=== PATIENT | female | born 1955 | race Caucasian/White ===

== ENCOUNTER 2024-09-28 08:59 | Outpatient (AMB) | payer MEDICARE, SELFPAY ==
--- NOTE | 2024-09-28 09:06 | A.SPINEOV_ITS ---
Vital Signs 09/28/24 09:14 Height 5 ft 2 in Weight 210 lb BMI 38.4 Intake Visit Reasons: lower back pain Intake Note: Ms. Dunham is here today c/o low back pain and difficulty walking. Interpersonal Communications Professor Required: No Allergies No Known Allergies Allergy (Verified 09/28/24 09:15) Physical Exam Vital Signs: BMI result Body Mass Index 38.4 Assessment & Plan Assessment & Plan (1) Scoliosis of lumbar region due to degenerative disease of spine in adult: Code(s): M41.56 - Other secondary scoliosis, lumbar region Category: Medical (2) Spondylolisthesis, lumbar region: Code(s): M43.16 - Spondylolisthesis, lumbar region Category: Medical Plan Dear colleague Thank you for referring Deb Dunham to the office today with a chief complaint of back pain with walking and standing. HPI: This 68-year-old female has progressive symptoms of back pain with walking and standing. He used to be able to walk 10 mi several years ago which then regressed to 3 miles when she had to stop several time and sit down and now she can hardly walk or stand anymore. Sitting down improves the symptoms. Leaning over a shopping cart is helpful as well. She denies radiating pain down her legs although there is pain in her right buttock that started after chiropractic therapy. This pain increases with walking and standing. The following conservative treatment options were tried without success antiinflammatories, tylenol, physical therapy, chiropractic therapy, cortisone shots PMH: Hypertension, left knee replacement and right rotator cuff surgery Medications: Metoprolol, amitriptyline for shingles Allergies: None Social history: . Nonsmoker. Retired. Physical Exam: Pleasant female. Height 5'2 weight 210 lb. Inspection of the lumbar spine shows a mild lumbar scoliosis with the apex in the high lumbar region. She ambulates with a flexed position. Straight leg raise negative. Motor and sensory exam are intact. Radiological Studies: A dynamic lumbar x-ray of 05/22/2024 shows a lumbar degenerative scoliosis with the apex at L3-L4. More importantly, there was an unstable L4-5 spondylolisthesis that increases with extension. MRI done at [facility] on 06/03/2023 shows again the L4-5 spondylolisthesis and associated moderate L4-5 spinal stenosis and moderate bilateral L4 foraminal stenosis. There is also the lumbar degenerative scoliosis with the apex at L3-L4 with a unilateral disc collapse L3-4 on the right side Impression/Plan: This patient is most likely symptomatic from the L4-5 spondylolisthesis with the associated spinal stenosis. However, the scoliotic component could also affect the symptoms. I offered her an oblique lumbar interbody fusion L4-5 with the possibility to extended to L3-4 depending on the amount of scoliosis seen intraoperatively. Thank you for allowing me to participate in your patients care. total time spent was 50 minutes in counseling ,coordination of plan, personal review of imaging, surgical decision making and subsequent plan Ravi Cuenca MD, PhD Spine Fellowship Trained Neurosurgeon Director, [facility] Coding Level of Care Code New Pt Level 4 (01522) Diagnoses Scoliosis of lumbar region due to degenerative disease of spine in adult M41.56 Spondylolisthesis, lumbar region M43.16
[2024-09-28 09:14] VITALS: BMI 38.4
--- OUTSIDE RECORDS SUMMARY | 2024-09-28 09:16 | XMS_ITS | Clinical Summary ---
Author Organization [facility] Address [address] [place] [address] Care Team Providers Care Pit Inspector Name Role Phone Ubaldo Kevin MD Primary Care Provider [phone] Allergies No known active allergies Medications Medication Sig Dispensed Refills Start Date End Date Status Eagle-3 Fatty Acids (OMEGA 3 PO) Take 3 g by mouth daily. 0 Active Magnesium-Potassium 250-100 MG TABS Take by mouth daily. 0 Active cholecalciferol (VITAMIN D3) 1000 UNITS tablet Take 1 tablet (1,000 Units total) by mouth daily. 0 Active TURMERIC CURCUMIN PO Take 1,000 mg by mouth daily. 0 Active Cyanocobalamin (VITAMIN B 12 PO) Take by mouth. 0 Act jose LANSOPRAZOLE PO Take 40 mg by mouth 2 (two) times a day. 0 Active metoprolol succinate (TOPROL-XL) 24 hr tablet 50 mg Take 1 tablet (50 mg total) by mouth daily. 0 09/10/2023 Active olmesartan (BENICAR) tablet 20 mg TAKE 1 TABLET BY MOUTH EVERY 24 HOURS 0 09/20/2023 Active Active Problems Problem Noted Date Diagnosed Date Palpitations 09/28/2023 Other chest pain 09/28/2023 SOB (shortness of breath) 09/28/2023 Sacroiliac inflammation 02/25/2023 Spinal stenosis of lumbar re gion without neurogenic claudication 02/25/2023 Acute upper GI bleed 12/21/2015 Acute blood loss anemia 12/21/2015 Hypokalemia 12/21/2015 GERD (gastroesophageal reflux disease) 6 Hiatal hernia 12/21/2015 Iron deficiency anemia 12/21/2015 History of DVT (deep vein thrombosis) 12/21/2015 Social History Tobacco Use Types Packs/Day Years Used Date Smoking Tobacco: Former Tobacco Cessation:Counseling Given: Not Answered Alcohol Use Standard Drinks/Week Comments Yes 0 (1 standard drink = 0.6 oz pur e alcohol) rarely Sex and Gender Information Value Date Recorded Sex Assigned at Female 10/26/2023 3:10 PM EDT Gender Identity Not on file Sexual Orientation Not on file Job Start Date Occupation Industry Not on file Not on file Not on file Last Filed Vital Signs Vital Sign Reading Time Taken Comments Blood Pressure 128/73 11/07/2023 8:32 AM EDT Pulse 86 11/07/2023 8:32 AM EDT Temperature 36.6 C (97.9 F) 11/07/2023 8:13 AM EDT Respiratory Rate 15 11/07/2023 8:32 AM EDT Oxygen Saturation 96% 11/07/2023 8:32 AM EDT Inhaled Oxygen Concentration - - Weight 104.3 kg (230 lb) 11/07/2023 8:13 AM EDT Height 160 cm (5' 3 ) 11/07/2023 8:13 AM EDT Body Mass Index 40.74 11/07/2023 8:13 AM EDT Plan of Treatment Health Maintenance Due Date Last Done Comments Hepatitis C Screening 1954 Depression Screening 1966 BMI Counseling 1972 Preventative Health Evaluation 1972 DTap / Tdap / Td (1 - Tdap) 1973 Colon Cancer Screening (Colonoscopy) 12/05/1999 Breast Cancer Screening (Mammogram) 2004 Shingrix-Zoster Vaccine (1 o f 2) 2004 RSV Adult > 60+ Yrs or (1 - Risk 60-74 years 1-dose series) 2014 Fall Risk Assessment 12/05/2019 Osteoporosis Screening (DEXA Scan) 12/05/2019 Pneumococcal Vaccine (1 of 1 - PCV) 12/05/2019 COVID-19 Vaccine (4 - 2023-2 5 season) 2023 04/15/2021, 06/23/2020, 06/02/2020 Influenza Vaccine (#1) 2024 Hepatitis B Vaccines Aged Out No long er eligible based on patient's age to complete this topic RSV Ped < 20 months Aged Out No longe r eligible based on patient's age to complete this topic Advance Directives For more information, please contact: [phone] Latest Code Status on File Code Status Date Activated Date Inactivated Comments DNR 12/21/2015 4:50 PM 12/23/2015 6:02 PM Thi s code status was ascertained in the following way: discussion with patient. Code Status History Code Status Date Activated Date Inactivated Comments DNR 12/21/2015 4:17 PM 12/21/2015 4:50 PM Thi s code status was ascertained in the following way: discussion with patient. Full Code 12/21/2015 3:14 PM 12/21/2015 4:16 PM Thi s code status was ascertained in the following way: discussion with patient. Care Teams Pit Inspector Relationship Specialty Start Date End Date Ubaldo Kevin MD [id number] [place] [address] PCP - General Internal Medicine 12/08/22
--- OUTSIDE RECORDS SUMMARY | 2024-09-28 09:16 | XMS_ITS | Clinical Summary ---
Author Organization [facility] Address [address] [place] [address] Care Team Providers Care Field Mechanical Meter Tester Name Role Phone Ubaldo Kevin MD Unavailable [phone] Pcp, No MD Primary Care Provider Unavailabl e Allergies No known active allergies Medications omeprazole (PriLOSEC) 40 mg capsule TAKE 1 CAPSULE BY MOUTH TWICE DAILY BEFORE MEALS 03/12/2020 Active Active Problems No known active problems Social History Tobacco Use Types Packs/Day Years Used Date Smoking Tobacco: Never Smokeless Tobacco: Never Tobacco Cessation:Counseling Given: Not Answered Alcohol Use Standard Drinks/Week Comments Not Currently 0 (1 standard drink = 0.6 oz pur e alcohol) Comments Unknown Sex and Gender Information Value Date Recorded Sex Assigned at Not on file Legal Sex Female 6:01 PM EST Gender Identity Not on file Sexual Orientation Not on file Last Filed Vital Signs Vital Sign Reading Time Taken Comments Blood Pressure 134/73 08/31/2023 8:01 PM EDT Pulse 133 08/31/2023 8:01 PM EDT Temperature 37.3 C (99.1 F) 08/31/2023 8:01 PM EDT Respiratory Rate 16 08/31/2023 8:01 PM EDT Oxygen Saturation 91% 08/31/2023 8:01 PM EDT Inhaled Oxygen Concentration - - Weight - - Height - - Body Mass Index - - Plan of Treatment Health Maintenance Due Date Last Done Comments Bone Density Screening 1954 Breast Cancer Screening 1954 CT Colonography 1954 Colonoscopy 1954 Colorectal Cancer Screening 1954 FIT-DNA (Cologuard) 1954 FIT 1954 FOBT 1954 Flex Sigmoidoscopy - 5y 1954 HIV Screening 1954 Medicare Annual Wellness (AWV) 1954 DTaP,Tdap,and Td Vaccines (1 - Tdap) 1972 Hepatitis C Screening 1972 Pneumococcal Vaccine, 50+ Years (1 of 1 - PCV) 2004 Zoster Vaccines (2 of 2) 06/27/2023 05/02/2023 COVID-19 Vaccine (4 - 2023-2 5 season) 2023 04/15/2021, 06/23/2020, 06/02/2020 Influenza Vaccine (#1) 2024 HPV Vaccines Aged Out No longer eligi ble based on patient's age to complete this topic Hepatitis A Vaccines Aged Out No long er eligible based on patient's age to complete this topic Meningococcal Vaccine Aged Out No vero edenilson eligible based on patient's age to complete this topic Insurance MEDICARE Care Teams Field Mechanical Meter Tester Relationship Specialty Start Date End Date Ubaldo Kevin MD [address] [place] [address] PCP - Insurance Payer PCP 08/31/23 Taylor Marquez MD [address] [place] [address] PCP - General Internal Medicine 08/31/23
--- OUTSIDE RECORDS SUMMARY | 2024-09-28 09:16 | XMS_ITS | Encounter Summary ---
Author Organization [facility] Address [address] [place] [address] Care Team Providers Care Negative Notcher Name Role Phone Anamika Milton ND Unavailable [phone] Ubaldo Kevin MD Primary Care Provider [phone] Encounter Details Date Type Department Care Team (Late st Contact Info) Description 07/11/2023 Scanned Document [facility] [address] [address] Poncho Bronson MD [address] [place] [address] [address] [place] [address] Social History Tobacco Use Types Packs/Day Years Used Date Smoking Tobacco: Former Smokeless Tobacco: Never Alcohol Use Standard Drinks/Week Comments No 0 (1 standard drink = 0.6 oz pur e alcohol) Comments No Sex and Gender Information Value Date Recorded Sex Assigned at Female 02/11/2024 8:26 AM EST Legal Sex Female 3:14 PM EDT Gender Identity Female 04/06/2024 9:38 AM EST Sexual Orientation Heterosexual (straight) 04/06 9:38 AM EST documented as of this encounter Plan of Treatment Not on file documented as of this encounter Visit Diagnoses Not on filedocumented in this encounter Care Teams Negative Notcher Relationship Specialty Start Date End Date Anamika Milton ND PCP - Allergy Naturopathic Medicine 05/26/18 Ubaldo Kevin MD [address] [place] [address] PCP - General Internal Medicine 05/26/18 documented as of this encounter
--- OUTSIDE RECORDS SUMMARY | 2024-09-28 09:16 | XMS_ITS ---
Author Name [facility] Organization Unknown Results Test Name/Text Value Interpretation Date Range Source Magnesium SerPl-mCnc 2.3 mg/dL 02 5 1.7 - 2.8 [facility] Albumin SerPl-mCnc 4.5 g/dL 5 3.5 - 5 [facility] BUN/Creat SerPl 18.0 5 12 - 20 [facility] Chloride SerPl-sCnc 100.0 mmol/L 09/24/19 2 5 98 - 107 [facility] Glucose SerPl-mCnc 114.0 mg/dL Above high normal 08/29 5 70 - 99 [facility] Potassium SerPl-sCnc 4.1 mmol/L 02 5 3.5 - 5.1 [facility] Sodium SerPl-sCnc 135.0 mmol/L 5 135 - 145 [facility] BUN SerPl-mCnc 20.0 mg/dL Above high normal 09/24/19 2 5 7 - 17 [facility] AST SerPl-cCnc 25.0 unit/L 5 5 - 40 [facility] Anion Gap SerPl Calc-sCnc 10.0 5 5 - 14 [facility] Bilirub SerPl-mCnc 0.4 mg/dL 5 0.3 - 1 [facility] Calcium SerPl-mCnc 9.0 mg/dL 5 8.4 - 10.2 [facility] Creat SerPl-mCnc 1.11 mg/dL Above high normal 5 0.5 - 1 [facility] ALP SerPl-cCnc 90.0 unit/L 5 34 - 104 [facility] ALT SerPl-cCnc 16.0 unit/L 5 7 - 52 [facility] Prot SerPl-mCnc 7.7 g/dL 5 6.4 - 8.5 [facility] CO2 SerPl-sCnc 25.0 mmol/L 5 24 - 32 [facility] eGFRcr SerPlBld CKD-EPI 2020 54.0 mL/min/1.73m2 Below low normal 5 - [facility] Monocytes # Bld Auto 0.52 K/mcL 02 5 0 - 0.8 [facility] Monocytes NFr Bld Auto 7.0 % 5 2 - 12 [facility] Basophils NFr Bld Auto 0.5 % 5 0 - 2 [facility] Hgb Bld-mCnc 12.3 g/dL Below low normal 5 12.5 - 16 [facility] PMV Bld Auto 9.1 FL 5 7.4 - 11.4 [facility] RBC # Bld Auto 4.44 M/mcL 5 4.2 - 5.4 [facility] MCHC RBC Auto-EntMCnc 33.5 g/dL 5 32 - 36 [facility] Neutrophils # Bld Auto 4.06 K/mcL 5 1.8 - 7.8 [facility] Lymphocytes NFr Bld Auto 32.6 % 5 20 - 48 [facility] WBC # Bld Auto 7.5 K/mcL 5 4 - 10.5 [facility] Hct VFr Bld Auto 36.7 % Below low normal 02 5 37 - 47 [facility] RBC Auto 82.7 FL 5 78 - 100 [facility] RDW RBC Auto 16.0 % 5 12.1 - 16.2 [facility] Platelet # Bld Auto 342.0 K/mcL 09/24/19 2 5 150 - 450 [facility] MCH RBC Qn Auto 27.7 pcg 5 25 - 33 [facility] Eosinophil # Bld Auto 0.38 K/mcL 5 0 - 0.5 [facility] Lymphocytes # Bld Auto 2.43 K/mcL 5 1 - 3.2 [facility] Eosinophil NFr Bld Auto 5.1 % 5 0 - 6 [facility] Basophils # Bld Auto 0.04 K/mcL 02 5 0 - 0.2 [facility] Neutrophils NFr Bld Auto 54.5 % 5 44 - 74 [facility] Glucose Bld-mCnc 98.0 mg/dL 5 70 - 199 [facility] Troponin I SerPl HS-mCnc 3.0 ng/L 5 0 - 14 [facility] Lipase SerPl-cCnc 11.0 unit/L 5 11 - 82 [facility] Creat SerPl-mCnc 0.98 mg/dL 5 0.5 - 1 [facility] Anion Gap SerPl Calc-sCnc 10.0 5 5 - 14 [facility] Bilirub SerPl-mCnc 0.5 mg/dL 5 0.3 - 1 [facility] BUN/Creat SerPl 21.4 Above high normal 02 5 12 - 20 [facility] Prot SerPl-mCnc 7.5 g/dL 5 6.4 - 8.5 [facility] ALP SerPl-cCnc 86.0 unit/L 5 34 - 104 [facility] Glucose SerPl-mCnc 93.0 mg/dL 5 70 - 199 [facility] Sodium SerPl-sCnc 134.0 mmol/L Below low normal 5 135 - 145 [facility] Calcium SerPl-mCnc 8.8 mg/dL 5 8.4 - 10.2 [facility] ALT SerPl-cCnc 17.0 unit/L 5 7 - 52 [facility] eGFRcr SerPlBld CKD-EPI 2020 63.0 mL/min/1.73m2 5 - [facility] AST SerPl-cCnc 22.0 unit/L 5 5 - 40 [facility] Potassium SerPl-sCnc 3.7 mmol/L 02 5 3.5 - 5.1 [facility] Albumin SerPl-mCnc 4.1 g/dL 5 3.5 - 5 [facility] Chloride SerPl-sCnc 99.0 mmol/L 08/07/19 2 5 98 - 107 [facility] BUN SerPl-mCnc 21.0 mg/dL Above high normal 08/07/19 2 5 7 - 17 [facility] CO2 SerPl-sCnc 25.0 mmol/L 5 24 - 32 [facility] Eosinophil # Bld Auto 0.28 K/mcL 5 0 - 0.5 [facility] Basophils # Bld Auto 0.04 K/mcL 02 5 0 - 0.2 [facility] RBC # Bld Auto 4.23 M/mcL 5 4.2 - 5.4 [facility] Basophils NFr Bld Auto 0.7 % 5 0 - 2 [facility] Lymphocytes NFr Bld Auto 37.0 % 5 20 - 48 [facility] PMV Bld Auto 8.6 FL 5 7.4 - 11.4 [facility] MCH RBC Qn Auto 26.7 pcg 5 25 - 33 [facility] MCHC RBC Auto-EntMCnc 33.2 g/dL 5 32 - 36 [facility] Hgb Bld-mCnc 11.3 g/dL Below low normal 5 12.5 - 16 [facility] RBC Auto 80.4 FL 5 78 - 100 [facility] RDW RBC Auto 13.7 % 5 12.1 - 16.2 [facility] Hct VFr Bld Auto 34.0 % Below low normal 02 5 37 - 47 [facility] Lymphocytes # Bld Auto 2.09 K/mcL 5 1 - 3.2 [facility] Neutrophils # Bld Auto 2.74 K/mcL 5 1.8 - 7.8 [facility] Monocytes # Bld Auto 0.49 K/mcL 02 5 0 - 0.8 [facility] Platelet # Bld Auto 304.0 K/mcL 08/07/19 2 5 150 - 450 [facility] Monocytes NFr Bld Auto 8.7 % 5 2 - 12 [facility] Neutrophils NFr Bld Auto 48.4 % 5 44 - 74 [facility] WBC # Bld Auto 5.7 K/mcL 5 4 - 10.5 [facility] Eosinophil NFr Bld Auto 5.0 % 5 0 - 6 [facility] Sp Gr Ur 1.01 5 1.005 - 1.03 [facility] Clarity Ur Clear 5 - [facility] Hgb Ur Ql Negative 5 - [facility] Prot Ur Strip-mCnc Negative 5 - [facility] Ketones Ur-mCnc Negative 5 - [facility] Leukocyte esterase Ur Ql Strip Trace Abnormal 5 - [facility] Nitrite Ur Ql Negative 5 - [facility] Glucose Ur Ql Negative 5 - [facility] Color Ur Yellow 5 - [facility] pH Ur 6.0 pH 5 5 - 8 [facility] eGFRcr SerPlBld CKD-EPI 2020 79.0 mL/min/1.73m2 5 - [facility] Glucose SerPl-mCnc 107.0 mg/dL 5 70 - 199 [facility] Calcium SerPl-mCnc 9.5 mg/dL 5 8.4 - 10.2 [facility] Anion Gap SerPl Calc-sCnc 11.0 5 5 - 14 [facility] Potassium SerPl-sCnc 3.8 mmol/L 02 5 3.5 - 5.1 [facility] Albumin SerPl-mCnc 4.3 g/dL 5 3.5 - 5 [facility] Sodium SerPl-sCnc 137.0 mmol/L 5 135 - 145 [facility] Creat SerPl-mCnc 0.81 mg/dL 5 0.5 - 1 [facility] Bilirub SerPl-mCnc 0.6 mg/dL 5 0.3 - 1 [facility] Prot SerPl-mCnc 8.1 g/dL 5 6.4 - 8.5 [facility] AST SerPl-cCnc 24.0 unit/L 5 5 - 40 [facility] BUN/Creat SerPl 22.2 Above high normal 02 5 12 - 20 [facility] ALT SerPl-cCnc 19.0 unit/L 5 7 - 52 [facility] CO2 SerPl-sCnc 24.0 mmol/L 5 24 - 32 [facility] Chloride SerPl-sCnc 102.0 mmol/L 08/03/19 2 5 98 - 107 [facility] BUN SerPl-mCnc 18.0 mg/dL Above high normal 08/03/19 2 5 7 - 17 [facility] ALP SerPl-cCnc 96.0 unit/L 5 34 - 104 [facility] RBC Auto 79.5 FL 5 78 - 100 [facility] Lymphocytes NFr Bld Auto 39.9 % 5 20 - 48 [facility] Neutrophils # Bld Auto 3.09 K/mcL 5 1.8 - 7.8 [facility] Basophils NFr Bld Auto 0.6 % 5 0 - 2 [facility] Lymphocytes # Bld Auto 2.54 K/mcL 5 1 - 3.2 [facility] PMV Bld Auto 8.6 FL 5 7.4 - 11.4 [facility] Platelet # Bld Auto 324.0 K/mcL 08/03/19 2 5 150 - 450 [facility] RDW RBC Auto 13.6 % 5 12.1 - 16.2 [facility] Neutrophils NFr Bld Auto 48.6 % 5 44 - 74 [facility] Monocytes # Bld Auto 0.47 K/mcL 02 5 0 - 0.8 [facility] Hct VFr Bld Auto 33.7 % Below low normal 02 5 37 - 47 [facility] RBC # Bld Auto 4.24 M/mcL 5 4.2 - 5.4 [facility] Eosinophil # Bld Auto 0.21 K/mcL 5 0 - 0.5 [facility] Monocytes NFr Bld Auto 7.4 % 5 2 - 12 [facility] MCH RBC Qn Auto 26.9 pcg 5 25 - 33 [facility] WBC # Bld Auto 6.4 K/mcL 5 4 - 10.5 [facility] Eosinophil NFr Bld Auto 3.3 % 5 0 - 6 [facility] Hgb Bld-mCnc 11.4 g/dL Below low normal 5 12.5 - 16 [facility] Basophils # Bld Auto 0.04 K/mcL 02 5 0 - 0.2 [facility] MCHC RBC Auto-EntMCnc 33.8 g/dL 5 32 - 36 [facility] Prot Ur Strip-mCnc Negative 5 - [facility] Sp Gr Ur 1.015 5 1.005 - 1.03 [facility] Color Ur Yellow 5 - [facility] Glucose Ur Ql Negative 5 - [facility] Leukocyte esterase Ur Ql Strip Negative 5 - [facility] pH Ur 7.0 pH 5 5 - 8 [facility] Hgb Ur Ql Negative 5 - [facility] Nitrite Ur Ql Negative 5 - [facility] Clarity Ur Clear 5 - [facility] Ketones Ur-mCnc Negative 5 - [facility] FLEXITEST 1 FLEXITEST 1 Normal 4 - [facility] GFRE 63.0 Normal 4 60 - [facility] GLUCOSE 113.0 mg/dL Above high normal 4 74 - 100 [facility] POTASSIUM SERUM 4.3 mmol/L Normal 4 3.5 - 5.1 [facility] CHLORIDE 108.0 mmol/L Above high normal 4 98 - 107 [facility] CALCIUM 9.6 mg/dL Normal 4 8.5 - 10.1 [facility] CREATININE 0.94 mg/dL Normal 4 0.55 - 1.3 [facility] SODIUM 140.0 mmol/L Normal 4 136 - 145 [facility] CO2 25.0 mmol/L Normal 4 21 - 32 [facility] BUN 22.0 mg/dL Above high normal 4 7 - 18 [facility] PATIENT FASTING? NO Normal 4 [facility] C-REACTIVE PROTEIN 0.5 mg/dL Normal 4 - 1 [facility] MCH 28.0 PG Normal 4 27 - 34 [facility] GRANULOCYTES 45.0 % Normal 4 23 - 78 [facility] IMMATURE GRANULOCYTES 0.0 % Normal 4 0 - 0.45 [facility] WBC 5.2 K/uL Normal 4 3.7 - 10.3 [facility] RDW 13.4 % Above high normal 4 11.1 - 13.3 [facility] HCT 34.1 % Below low normal 4 36 - 46 [facility] ABSOLUTE LYMPHS 2.1 K/uL Normal 4 1.5 - 4.9 [facility] EOSINOPHILS 6.0 % Normal 4 0 - 6 [facility] PLATELET COUNT 307.0 K/uL Normal 4 150 - 480 [facility] ABSOLUTE IMMATURE GRANULOCYTES 0.0 K/uL Normal 4 0 - 0.3 [facility] MPV 10.0 fL Normal 4 8 - 12 [facility] ABSOLUTE NUCLEATED RBC 0.0 K/uL Normal 4 0 - 0.012 [facility] NUCLEATED RBC 0.0 % Normal 4 0 - 0.2 [facility] MCV 86.0 fL Normal 4 83 - 102 [facility] LYMPHS 39.0 % Normal 4 16 - 50 [facility] ABSOLUTE EOS 0.3 K/uL Normal 4 0 - 0.7 [facility] BASOPHILS 1.0 % Normal 4 0 - 2 [facility] HGB 11.2 g/dL Below low normal 4 12.1 - 15.7 [facility] MONOCYTES 9.0 % Normal 4 0 - 12 [facility] MCHC 32.8 g/dL Normal 4 31 - 36 [facility] RBC 3.97 M/uL Below low normal 4 4 - 5.4 [facility] ABSOLUTE GRANULOCYTES 2.3 K/uL Normal 4 2.2 - 7.3 [facility] ABSOLUTE MONOS 0.5 K/uL Normal 4 0.2 - 1.5 [facility] ABSOLUTE BASO 0.0 K/uL Normal 4 0 - 0.2 [facility] FIBRINOGEN 344.0 mg/dL Normal 4 172 - 483 [facility] D-DIMER HIGH SENSITIVITY 244.0 ng/MLDDU Above high normal 4 0 - 243 [facility] 18 KD BAND,IGG Nonreactive Normal 4 - [facility] 28 KD BAND,IGG Nonreactive Normal 4 - [facility] 39 KD BAND,IGM Nonreactive Normal 4 - [facility] 39 KD BAND,IGG Nonreactive Normal 4 - [facility] LYME DISEASE AB(IGG),BLOT Negative Normal 4 - [facility] 58 KD BAND,IGG Reactive Abnormal 4 - [facility] 41 KD BAND,IGG Reactive Abnormal 4 - [facility] 23 KD BAND,IGM Reactive Abnormal 4 - [facility] 93 KD BAND,IGG Nonreactive Normal 4 - [facility] 66 KD BAND,IGG Nonreactive Normal 4 - [facility] 30 KD BAND,IGG Nonreactive Normal 4 - [facility] 41 KD BAND,IGM Nonreactive Normal 4 - [facility] LYME DISEASE AB(IGM),BLOT Negative Normal 4 - [facility] 23 KD BAND,IGG Nonreactive Normal 4 - [facility] 45 KD BAND,IGG Nonreactive Normal 4 - [facility] HS-CRP 5.3 mg/L Normal 4 - [facility] LYME AB SCREEN (IGG/IGM) Normal 4 - [facility] C-REACTIVE PROTEIN 0.6 mg/dL Normal 4 - 1 [facility] GFRE 69.0 Normal 4 60 - [facility] SODIUM 140.0 mmol/L Normal 4 136 - 145 [facility] GLUCOSE 96.0 mg/dL Normal 4 74 - 100 [facility] CREATININE 0.87 mg/dL Normal 4 0.55 - 1.3 [facility] CALCIUM 8.9 mg/dL Normal 4 8.5 - 10.1 [facility] CHLORIDE 107.0 mmol/L Normal 4 98 - 107 [facility] CO2 24.0 mmol/L Normal 4 21 - 32 [facility] BUN 32.0 mg/dL Above high normal 4 7 - 18 [facility] POTASSIUM SERUM 4.4 mmol/L Normal 4 3.5 - 5.1 [facility] PATIENT FASTING? NO Normal 4 [facility] ABSOLUTE LYMPHS 2.2 K/uL Normal 4 1.5 - 4.9 [facility] ABSOLUTE MONOS 0.6 K/uL Normal 4 0.2 - 1.5 [facility] GRANULOCYTES 54.0 % Normal 4 23 - 78 [facility] PLATELET COUNT 330.0 K/uL Normal 4 150 - 480 [facility] WBC 7.0 K/uL Normal 4 3.7 - 10.3 [facility] HCT 35.1 % Below low normal 4 36 - 46 [facility] ABSOLUTE GRANULOCYTES 3.8 K/uL Normal 4 2.2 - 7.3 [facility] RBC 4.0 M/uL Normal 4 4 - 5.4 [facility] ABSOLUTE BASO 0.0 K/uL Normal 4 0 - 0.2 [facility] ABSOLUTE IMMATURE GRANULOCYTES 0.0 K/uL Normal 4 0 - 0.3 [facility] BASOPHILS 1.0 % Normal 4 0 - 2 [facility] MCV 88.0 fL Normal 4 83 - 102 [facility] MONOCYTES 8.0 % Normal 4 0 - 12 [facility] EOSINOPHILS 5.0 % Normal 4 0 - 6 [facility] IMMATURE GRANULOCYTES 0.0 % Normal 4 0 - 0.45 [facility] MCHC 32.5 g/dL Normal 4 31 - 36 [facility] RDW 13.7 % Above high normal 4 11.1 - 13.3 [facility] NUCLEATED RBC 0.0 % Normal 4 0 - 0.2 [facility] ABSOLUTE NUCLEATED RBC 0.0 K/uL Normal 4 0 - 0.012 [facility] MCH 29.0 PG Normal 4 27 - 34 [facility] MPV 9.0 fL Normal 4 8 - 12 [facility] HGB 11.4 g/dL Below low normal 4 12.1 - 15.7 [facility] ABSOLUTE EOS 0.3 K/uL Normal 4 0 - 0.7 [facility] LYMPHS 32.0 % Normal 4 16 - 50 [facility] Glomerular filtration rate/1.73 sq M. predicted 70.0 Normal 4 [facility] CREAT BLD MCNC 0.9 mg/dL Normal 4 0.5 - 1 [facility] CREATININE 0.9 mg/dL Normal 4 0.55 - 1.3 [facility] BUN 23.0 mg/dL Above high normal 4 7 - 18 [facility] GFRE 66.0 Normal 4 60 - [facility] IMMUNOGLOBULIN G SUBCLASS 2 452.0 mg/dL Normal 4 241 - 700 [facility] IMMUNOGLOBULIN G SUBCLASS 3 192.0 mg/dL Critically abnormal 4 22 - 178 [facility] IMMUNOGLOBULIN G, SERUM 1261.0 mg/dL Normal 4 600 - 1540 [facility] IMMUNOGLOBULIN G SUBCLASS 4 95.9 mg/dL Critically abnormal 4 4 - 86 [facility] IMMUNOGLOBULIN G SUBCLASS 1 561.0 mg/dL Normal 4 382 - 929 [facility] MCH 31.0 PG Normal 4 27 - 34 [facility] ABSOLUTE GRANULOCYTES 3.2 K/uL Normal 4 2.2 - 7.3 [facility] RDW 14.2 % Above high normal 4 11.1 - 13.3 [facility] MCV 92.0 fL Normal 4 83 - 102 [facility] LYMPHS 30.0 % Normal 4 16 - 50 [facility] HCT 36.3 % Normal 4 36 - 46 [facility] ABSOLUTE IMMATURE GRANULOCYTES 0.0 K/uL Normal 4 0 - 0.3 [facility] PLATELET COUNT 340.0 K/uL Normal 4 150 - 480 [facility] EOSINOPHILS 4.0 % Normal 4 0 - 6 [facility] ABSOLUTE EOS 0.2 K/uL Normal 4 0 - 0.7 [facility] MCHC 33.3 g/dL Normal 4 31 - 36 [facility] BASOPHILS 1.0 % Normal 4 0 - 2 [facility] ABSOLUTE LYMPHS 1.7 K/uL Normal 4 1.5 - 4.9 [facility] NUCLEATED RBC 0.0 % Normal 4 0 - 0.2 [facility] MPV 10.0 fL Normal 4 8 - 12 [facility] RBC 3.95 M/uL Below low normal 4 4 - 5.4 [facility] GRANULOCYTES 56.0 % Normal 4 23 - 78 [facility] ABSOLUTE MONOS 0.5 K/uL Normal 4 0.2 - 1.5 [facility] HGB 12.1 g/dL Normal 4 12.1 - 15.7 [facility] ABSOLUTE NUCLEATED RBC 0.0 K/uL Normal 4 0 - 0.012 [facility] MONOCYTES 8.0 % Normal 4 0 - 12 [facility] ABSOLUTE BASO 0.1 K/uL Normal 4 0 - 0.2 [facility] IMMATURE GRANULOCYTES 0.0 % Normal 4 0 - 0.45 [facility] WBC 5.6 K/uL Normal 4 3.7 - 10.3 [facility] MAGNESIUM 1.9 mg/dL Normal 4 1.8 - 2.4 [facility] GFRE 73.0 Normal 4 60 - [facility] PHOSPHOROUS 3.4 mg/dL Normal 4 2.5 - 4.9 [facility] BUN 9.0 mg/dL Normal 4 7 - 18 [facility] A/G RATIO 0.6 g/dL Normal 4 [facility] CHLORIDE 102.0 mmol/L Normal 4 98 - 107 [facility] BUN/CREAT.RATIO 10.8 Normal 4 [facility] CO2 32.0 mmol/L Normal 4 21 - 32 [facility] PROTEIN, TOTAL 6.7 g/dL Normal 4 6.4 - 8.2 [facility] GLOBULIN 4.3 g/dL Above high normal 4 2.4 - 4.2 [facility] GLUCOSE 101.0 mg/dL Above high normal 4 74 - 100 [facility] CALCIUM 9.1 mg/dL Normal 4 8.5 - 10.1 [facility] POTASSIUM SERUM 4.2 mmol/L Normal 4 3.5 - 5.1 [facility] CREATININE 0.83 mg/dL Normal 4 0.55 - 1.3 [facility] ALBUMIN 2.4 g/dL Below low normal 4 3.4 - 5 [facility] ALKALINE PHOSPHATASE 121.0 U/L Normal 02 4 50 - 136 [facility] AST (SGOT) 37.0 U/L Normal 4 15 - 37 [facility] ALT (SGPT) 40.0 U/L Normal 4 12 - 78 [facility] BILIRUBIN,TOTAL 0.6 mg/dL Normal 4 0.2 - 1 [facility] SODIUM 140.0 mmol/L Normal 4 136 - 145 [facility] PATIENT FASTING? YES Normal 4 [facility] MCH 30.0 PG Normal 4 27 - 34 [facility] RBC 3.71 M/uL Below low normal 4 4 - 5.4 [facility] MPV 9.0 fL Normal 4 8 - 12 [facility] ABSOLUTE MONOS 0.5 K/uL Normal 4 0.2 - 1.5 [facility] ABSOLUTE LYMPHS 1.7 K/uL Normal 4 1.5 - 4.9 [facility] HCT 33.0 % Below low normal 4 36 - 46 [facility] LYMPHS 24.0 % Normal 4 16 - 50 [facility] BASOPHILS 1.0 % Normal 4 0 - 2 [facility] GRANULOCYTES 61.0 % Normal 4 23 - 78 [facility] ABSOLUTE GRANULOCYTES 4.2 K/uL Normal 4 2.2 - 7.3 [facility] PLATELET COUNT 415.0 K/uL Normal 4 150 - 480 [facility] ABSOLUTE NUCLEATED RBC 0.0 K/uL Normal 4 0 - 0.012 [facility] RDW 12.6 % Normal 4 11.1 - 13.3 [facility] MONOCYTES 8.0 % Normal 4 0 - 12 [facility] EOSINOPHILS 5.0 % Normal 4 0 - 6 [facility] WBC 6.8 K/uL Normal 4 3.7 - 10.3 [facility] ABSOLUTE IMMATURE GRANULOCYTES 0.1 K/uL Normal 4 0 - 0.3 [facility] NUCLEATED RBC 0.0 % Normal 4 0 - 0.2 [facility] MCHC 33.3 g/dL Normal 4 31 - 36 [facility] IMMATURE GRANULOCYTES 1.0 % Above high normal 4 0 - 0.45 [facility] MCV 89.0 fL Normal 4 83 - 102 [facility] ABSOLUTE EOS 0.3 K/uL Normal 4 0 - 0.7 [facility] ABSOLUTE BASO 0.1 K/uL Normal 4 0 - 0.2 [facility] HGB 11.0 g/dL Below low normal 4 12.1 - 15.7 [facility] GFRE 93.0 Normal 4 60 - [facility] MAGNESIUM 1.9 mg/dL Normal 4 1.8 - 2.4 [facility] PHOSPHOROUS 4.6 mg/dL Normal 4 2.5 - 4.9 [facility] CALCIUM 9.2 mg/dL Normal 4 8.5 - 10.1 [facility] AST (SGOT) 45.0 U/L Above high normal 4 15 - 37 [facility] ALT (SGPT) 45.0 U/L Normal 4 12 - 78 [facility] A/G RATIO 0.5 g/dL Normal 4 [facility] BUN 8.0 mg/dL Normal 4 7 - 18 [facility] PROTEIN, TOTAL 6.9 g/dL Normal 4 6.4 - 8.2 [facility] ALBUMIN 2.3 g/dL Below low normal 4 3.4 - 5 [facility] GLUCOSE 89.0 mg/dL Normal 4 74 - 100 [facility] ALKALINE PHOSPHATASE 130.0 U/L Normal 02 4 50 - 136 [facility] SODIUM 139.0 mmol/L Normal 4 136 - 145 [facility] CO2 31.0 mmol/L Normal 4 21 - 32 [facility] POTASSIUM SERUM 3.8 mmol/L Normal 4 3.5 - 5.1 [facility] CREATININE 0.67 mg/dL Normal 4 0.55 - 1.3 [facility] BUN/CREAT.RATIO 11.9 Normal 4 [facility] BILIRUBIN,TOTAL 0.5 mg/dL Normal 4 0.2 - 1 [facility] CHLORIDE 99.0 mmol/L Normal 4 98 - 107 [facility] GLOBULIN 4.6 g/dL Above high normal 4 2.4 - 4.2 [facility] PATIENT FASTING? YES Normal 4 [facility] MPV 9.0 fL Normal 4 8 - 12 [facility] MCHC 33.2 g/dL Normal 4 31 - 36 [facility] LYMPHS 22.0 % Normal 4 16 - 50 [facility] IMMATURE GRANULOCYTES 1.0 % Above high normal 4 0 - 0.45 [facility] EOSINOPHILS 5.0 % Normal 4 0 - 6 [facility] ABSOLUTE LYMPHS 1.7 K/uL Normal 4 1.5 - 4.9 [facility] BASOPHILS 1.0 % Normal 4 0 - 2 [facility] MCH 30.0 PG Normal 4 27 - 34 [facility] HCT 31.9 % Below low normal 4 36 - 46 [facility] RDW 12.6 % Normal 4 11.1 - 13.3 [facility] WBC 7.5 K/uL Normal 4 3.7 - 10.3 [facility] ABSOLUTE IMMATURE GRANULOCYTES 0.1 K/uL Normal 4 0 - 0.3 [facility] PLATELET COUNT 420.0 K/uL Normal 4 150 - 480 [facility] ABSOLUTE EOS 0.4 K/uL Normal 4 0 - 0.7 [facility] HGB 10.6 g/dL Below low normal 4 12.1 - 15.7 [facility] GRANULOCYTES 64.0 % Normal 4 23 - 78 [facility] ABSOLUTE MONOS 0.5 K/uL Normal 4 0.2 - 1.5 [facility] NUCLEATED RBC 0.0 % Normal 4 0 - 0.2 [facility] ABSOLUTE BASO 0.1 K/uL Normal 4 0 - 0.2 [facility] ABSOLUTE GRANULOCYTES 4.8 K/uL Normal 4 2.2 - 7.3 [facility] RBC 3.59 M/uL Below low normal 4 4 - 5.4 [facility] MONOCYTES 7.0 % Normal 4 0 - 12 [facility] MCV 89.0 fL Normal 4 83 - 102 [facility] ABSOLUTE NUCLEATED RBC 0.0 K/uL Normal 4 0 - 0.012 [facility] MONOCYTES 5.0 % Normal 4 0 - 12 [facility] IMMATURE GRANULOCYTES 2.0 % Above high normal 4 0 - 0.45 [facility] ABSOLUTE MONOS 0.4 K/uL Normal 4 0.2 - 1.5 [facility] ABSOLUTE LYMPHS 1.7 K/uL Normal 4 1.5 - 4.9 [facility] ABSOLUTE GRANULOCYTES 5.3 K/uL Normal 4 2.2 - 7.3 [facility] WBC 8.0 K/uL Normal 4 3.7 - 10.3 [facility] MCV 88.0 fL Normal 4 83 - 102 [facility] RDW 12.6 % Normal 4 11.1 - 13.3 [facility] ABSOLUTE NUCLEATED RBC 0.0 K/uL Normal 4 0 - 0.012 [facility] BASOPHILS 1.0 % Normal 4 0 - 2 [facility] MCHC 33.8 g/dL Normal 4 31 - 36 [facility] ABSOLUTE EOS 0.3 K/uL Normal 4 0 - 0.7 [facility] ABSOLUTE BASO 0.1 K/uL Normal 4 0 - 0.2 [facility] GRANULOCYTES 67.0 % Normal 4 23 - 78 [facility] HGB 11.2 g/dL Below low normal 4 12.1 - 15.7 [facility] PLATELET COUNT 431.0 K/uL Normal 4 150 - 480 [facility] LYMPHS 21.0 % Normal 4 16 - 50 [facility] HCT 33.1 % Below low normal 4 36 - 46 [facility] EOSINOPHILS 4.0 % Normal 4 0 - 6 [facility] MCH 30.0 PG Normal 4 27 - 34 [facility] ABSOLUTE IMMATURE GRANULOCYTES 0.1 K/uL Normal 4 0 - 0.3 [facility] RBC 3.78 M/uL Below low normal 4 4 - 5.4 [facility] NUCLEATED RBC 0.0 % Normal 4 0 - 0.2 [facility] MPV 9.0 fL Normal 4 8 - 12 [facility] CHLORIDE 102.0 mmol/L Normal 4 98 - 107 [facility] GLUCOSE 100.0 mg/dL Normal 4 74 - 100 [facility] A/G RATIO 0.5 g/dL Normal 4 [facility] BUN 6.0 mg/dL Below low normal 4 7 - 18 [facility] ALT (SGPT) 50.0 U/L Normal 4 12 - 78 [facility] GLOBULIN 4.7 g/dL Above high normal 4 2.4 - 4.2 [facility] BUN/CREAT.RATIO 9.8 Normal 4 [facility] BILIRUBIN,TOTAL 0.5 mg/dL Normal 4 0.2 - 1 [facility] CO2 31.0 mmol/L Normal 4 21 - 32 [facility] AST (SGOT) 58.0 U/L Above high normal 4 15 - 37 [facility] SODIUM 141.0 mmol/L Normal 4 136 - 145 [facility] PROTEIN, TOTAL 7.0 g/dL Normal 4 6.4 - 8.2 [facility] ALBUMIN 2.3 g/dL Below low normal 4 3.4 - 5 [facility] POTASSIUM SERUM 3.5 mmol/L Normal 4 3.5 - 5.1 [facility] ALKALINE PHOSPHATASE 150.0 U/L Above high normal 4 50 - 136 [facility] CALCIUM 9.3 mg/dL Normal 4 8.5 - 10.1 [facility] CREATININE 0.61 mg/dL Normal 4 0.55 - 1.3 [facility] PATIENT FASTING? NO Normal 4 [facility] GFRE 104.0 Normal 4 60 - [facility] MAGNESIUM 1.9 mg/dL Normal 4 1.8 - 2.4 [facility] PHOSPHOROUS 3.6 mg/dL Normal 4 2.5 - 4.9 [facility] PROCALCITONIN 0.14 ng/mL Normal 4 [facility] MCHC 33.4 g/dL Normal 4 31 - 36 [facility] ABSOLUTE MONOS 0.3 K/uL Normal 4 0.2 - 1.5 [facility] ABSOLUTE EOS 0.2 K/uL Normal 4 0 - 0.7 [facility] RBC 3.63 M/uL Below low normal 4 4 - 5.4 [facility] LYMPHS 21.0 % Normal 4 16 - 50 [facility] WBC 7.6 K/uL Normal 4 3.7 - 10.3 [facility] BASOPHILS 1.0 % Normal 4 0 - 2 [facility] GRANULOCYTES 70.0 % Normal 4 23 - 78 [facility] ABSOLUTE LYMPHS 1.6 K/uL Normal 4 1.5 - 4.9 [facility] HCT 31.4 % Below low normal 4 36 - 46 [facility] IMMATURE GRANULOCYTES 1.0 % Above high normal 4 0 - 0.45 [facility] ABSOLUTE BASO 0.1 K/uL Normal 4 0 - 0.2 [facility] ABSOLUTE IMMATURE GRANULOCYTES 0.1 K/uL Normal 4 0 - 0.3 [facility] MONOCYTES 4.0 % Normal 4 0 - 12 [facility] HGB 10.5 g/dL Below low normal 4 12.1 - 15.7 [facility] NUCLEATED RBC 0.0 % Normal 4 0 - 0.2 [facility] RDW 12.3 % Normal 4 11.1 - 13.3 [facility] EOSINOPHILS 3.0 % Normal 4 0 - 6 [facility] ABSOLUTE NUCLEATED RBC 0.0 K/uL Normal 4 0 - 0.012 [facility] MPV 9.0 fL Normal 4 8 - 12 [facility] PLATELET COUNT 365.0 K/uL Normal 4 150 - 480 [facility] MCH 29.0 PG Normal 4 27 - 34 [facility] MCV 87.0 fL Normal 4 83 - 102 [facility] ABSOLUTE GRANULOCYTES 5.3 K/uL Normal 4 2.2 - 7.3 [facility] PROTEIN, TOTAL 6.4 g/dL Normal 4 6.4 - 8.2 [facility] CHLORIDE 105.0 mmol/L Normal 4 98 - 107 [facility] BUN 7.0 mg/dL Normal 4 7 - 18 [facility] CO2 29.0 mmol/L Normal 4 21 - 32 [facility] BUN/CREAT.RATIO 11.9 Normal 4 [facility] AST (SGOT) 37.0 U/L Normal 4 15 - 37 [facility] A/G RATIO 0.5 g/dL Normal 4 [facility] ALT (SGPT) 34.0 U/L Normal 4 12 - 78 [facility] CREATININE 0.59 mg/dL Normal 4 0.55 - 1.3 [facility] POTASSIUM SERUM 3.2 mmol/L Below low normal 09/07/19 2 4 3.5 - 5.1 [facility] ALKALINE PHOSPHATASE 139.0 U/L Above high normal 4 50 - 136 [facility] GLOBULIN 4.2 g/dL Normal 4 2.4 - 4.2 [facility] SODIUM 143.0 mmol/L Normal 4 136 - 145 [facility] CALCIUM 9.1 mg/dL Normal 4 8.5 - 10.1 [facility] ALBUMIN 2.2 g/dL Below low normal 4 3.4 - 5 [facility] GLUCOSE 104.0 mg/dL Above high normal 4 74 - 100 [facility] BILIRUBIN,TOTAL 0.4 mg/dL Normal 4 0.2 - 1 [facility] PATIENT FASTING? UNKNOWN Normal 4 [facility] GFRE 108.0 Normal 4 60 - [facility] MRSA BY PCR NEGATIVE FOR MRSA. Normal 4 [facility] ABSOLUTE MONOS 0.4 K/uL Normal 4 0.2 - 1.5 [facility] ABSOLUTE GRANULOCYTES 5.2 K/uL Normal 4 2.2 - 7.3 [facility] IMMATURE GRANULOCYTES 1.0 % Above high normal 4 0 - 0.45 [facility] EOSINOPHILS 4.0 % Normal 4 0 - 6 [facility] GRANULOCYTES 72.0 % Normal 4 23 - 78 [facility] MPV 9.0 fL Normal 4 8 - 12 [facility] ABSOLUTE NUCLEATED RBC 0.0 K/uL Normal 4 0 - 0.012 [facility] RDW 12.2 % Normal 4 11.1 - 13.3 [facility] RBC 3.66 M/uL Below low normal 4 4 - 5.4 [facility] ABSOLUTE LYMPHS 1.3 K/uL Below low normal 09/06/19 2 4 1.5 - 4.9 [facility] ABSOLUTE EOS 0.3 K/uL Normal 4 0 - 0.7 [facility] MONOCYTES 5.0 % Normal 4 0 - 12 [facility] BASOPHILS 0.0 % Normal 4 0 - 2 [facility] MCHC 34.5 g/dL Normal 4 31 - 36 [facility] MCV 84.0 fL Normal 4 83 - 102 [facility] NUCLEATED RBC 0.0 % Normal 4 0 - 0.2 [facility] LYMPHS 19.0 % Normal 4 16 - 50 [facility] PLATELET COUNT 330.0 K/uL Normal 4 150 - 480 [facility] MCH 29.0 PG Normal 4 27 - 34 [facility] ABSOLUTE IMMATURE GRANULOCYTES 0.1 K/uL Normal 4 0 - 0.3 [facility] HCT 30.7 % Below low normal 4 36 - 46 [facility] HGB 10.6 g/dL Below low normal 4 12.1 - 15.7 [facility] WBC 7.2 K/uL Normal 4 3.7 - 10.3 [facility] ABSOLUTE BASO 0.0 K/uL Normal 4 0 - 0.2 [facility] ALKALINE PHOSPHATASE 135.0 U/L Normal 02 4 50 - 136 [facility] SODIUM 141.0 mmol/L Normal 4 136 - 145 [facility] CO2 29.0 mmol/L Normal 4 21 - 32 [facility] ALBUMIN 2.1 g/dL Below low normal 4 3.4 - 5 [facility] A/G RATIO 0.5 g/dL Normal 4 [facility] PROTEIN, TOTAL 6.1 g/dL Below low normal 4 6.4 - 8.2 [facility] CALCIUM 8.7 mg/dL Normal 4 8.5 - 10.1 [facility] GLUCOSE 95.0 mg/dL Normal 4 74 - 100 [facility] CHLORIDE 103.0 mmol/L Normal 4 98 - 107 [facility] POTASSIUM SERUM 2.8 mmol/L Below low normal 09/06/19 2 4 3.5 - 5.1 [facility] ALT (SGPT) 32.0 U/L Normal 4 12 - 78 [facility] GLOBULIN 4.0 g/dL Normal 4 2.4 - 4.2 [facility] AST (SGOT) 31.0 U/L Normal 4 15 - 37 [facility] BILIRUBIN,TOTAL 0.5 mg/dL Normal 4 0.2 - 1 [facility] BUN/CREAT.RATIO 12.5 Normal 4 [facility] BUN 6.0 mg/dL Below low normal 4 7 - 18 [facility] CREATININE 0.48 mg/dL Below low normal 4 0.55 - 1.3 [facility] PATIENT FASTING? UNKNOWN Normal 4 [facility] GFRE 137.0 Normal 4 60 - [facility] PHOSPHOROUS 2.3 mg/dL Below low normal 4 2.5 - 4.9 [facility] MAGNESIUM 1.9 mg/dL Normal 4 1.8 - 2.4 [facility] L/MIN 5.0 L/MIN Normal 4 [facility] PCO2 TEMPERATURE CORRECTED 35.0 mmHg Normal 4 35 - 48 [facility] SAT 96.0 % Normal 4 [facility] BE 3.0 meq/L Normal 4 - [facility] TCO2 28.0 MM/L Normal 4 22 - 28 [facility] PH TEMPERATURE CORRECTED 7.49 Above high normal 4 7.35 - 7.45 [facility] PO2 TEMPERATURE CORRECTED 80.0 mmHg Below low normal 4 83 - 108 [facility] DELIVERY SYSTEM Nasal Normal 4 [facility] PH 7.5 Above high normal 4 7.35 - 7.45 [facility] TEMPERATURE 99.7 DEG Normal 4 [facility] SITE R Brachial Normal 4 [facility] ALLENS TEST COMPLETE Pass Normal 02 4 [facility] PO2 77.0 mm HG Below low normal 4 83 - 108 [facility] HCO3 27.0 MM/L Normal 4 21 - 28 [facility] SAMPLE ARTERIAL Normal 4 [facility] FIO2 40.0 % Normal 4 [facility] PCO2 34.0 mm HG Below low normal 4 35 - 48 [facility] CHLORIDE 101.0 mmol/L Normal 4 98 - 107 [facility] CREATININE 0.54 mg/dL Below low normal 4 0.55 - 1.3 [facility] CALCIUM 8.5 mg/dL Normal 4 8.5 - 10.1 [facility] CO2 30.0 mmol/L Normal 4 21 - 32 [facility] BUN 9.0 mg/dL Normal 4 7 - 18 [facility] GLUCOSE 101.0 mg/dL Above high normal 4 74 - 100 [facility] POTASSIUM SERUM 3.0 mmol/L Below low normal 09/05/19 2 4 3.5 - 5.1 [facility] SODIUM 137.0 mmol/L Normal 4 136 - 145 [facility] PATIENT FASTING? NO Normal 4 [facility] GFRE 119.0 Normal 4 60 - [facility] MAGNESIUM 1.9 mg/dL Normal 4 1.8 - 2.4 [facility] MPV 9.0 fL Normal 4 8 - 12 [facility] NUCLEATED RBC 0.0 % Normal 4 0 - 0.2 [facility] IMMATURE GRANULOCYTES 1.0 % Above high normal 4 0 - 0.45 [facility] ABSOLUTE IMMATURE GRANULOCYTES 0.1 K/uL Normal 4 0 - 0.3 [facility] MCH 29.0 PG Normal 4 27 - 34 [facility] LYMPHS 11.0 % Below low normal 4 16 - 50 [facility] MCV 86.0 fL Normal 4 83 - 102 [facility] HGB 10.7 g/dL Below low normal 4 12.1 - 15.7 [facility] WBC 7.9 K/uL Normal 4 3.7 - 10.3 [facility] MCHC 33.6 g/dL Normal 4 31 - 36 [facility] BASOPHILS 1.0 % Normal 4 0 - 2 [facility] ABSOLUTE LYMPHS 0.9 K/uL Below low normal 09/05/19 2 4 1.5 - 4.9 [facility] GRANULOCYTES 83.0 % Above high normal 4 23 - 78 [facility] PLATELET COUNT 279.0 K/uL Normal 4 150 - 480 [facility] ABSOLUTE BASO 0.0 K/uL Normal 4 0 - 0.2 [facility] ABSOLUTE NUCLEATED RBC 0.0 K/uL Normal 4 0 - 0.012 [facility] MONOCYTES 4.0 % Normal 4 0 - 12 [facility] ABSOLUTE MONOS 0.3 K/uL Normal 4 0.2 - 1.5 [facility] ABSOLUTE GRANULOCYTES 6.5 K/uL Normal 4 2.2 - 7.3 [facility] ABSOLUTE EOS 0.1 K/uL Normal 4 0 - 0.7 [facility] HCT 31.8 % Below low normal 4 36 - 46 [facility] RDW 12.1 % Normal 4 11.1 - 13.3 [facility] EOSINOPHILS 1.0 % Normal 4 0 - 6 [facility] RBC 3.7 M/uL Below low normal 4 4 - 5.4 [facility] STREP PNEUMONIAE ANTIGEN NEGATIVE Normal 4 [facility] LEGIONELLA ANTIGEN, URINE NEGATIVE Normal 4 [facility] BLOOD CULTURE NO GROWTH AT 5 DAYS Normal 4 [facility] BLOOD CULTURE NO GROWTH AT 5 DAYS Normal 4 [facility] PROCALCITONIN 0.15 ng/mL Normal 4 [facility] D-DIMER HIGH SENSITIVITY 841.0 ng/MLDDU Critically high 4 0 - 243 [facility] PLATELET COUNT 314.0 K/uL Normal 4 150 - 480 [facility] ABSOLUTE EOS 0.0 K/uL Normal 4 0 - 0.7 [facility] LYMPHS 8.0 % Below low normal 4 16 - 50 [facility] ABSOLUTE BASO 0.0 K/uL Normal 4 0 - 0.2 [facility] EOSINOPHILS 0.0 % Normal 4 0 - 6 [facility] HGB 12.6 g/dL Normal 4 12.1 - 15.7 [facility] NUCLEATED RBC 0.0 % Normal 4 0 - 0.2 [facility] MPV 9.0 fL Normal 4 8 - 12 [facility] RDW 11.9 % Normal 4 11.1 - 13.3 [facility] RBC 4.38 M/uL Normal 4 4 - 5.4 [facility] ABSOLUTE LYMPHS 0.9 K/uL Below low normal 09/04/19 2 4 1.5 - 4.9 [facility] ABSOLUTE GRANULOCYTES 9.5 K/uL Above high normal 4 2.2 - 7.3 [facility] HCT 35.6 % Below low normal 4 36 - 46 [facility] MCH 29.0 PG Normal 4 27 - 34 [facility] MCHC 35.4 g/dL Normal 4 31 - 36 [facility] IMMATURE GRANULOCYTES 1.0 % Above high normal 4 0 - 0.45 [facility] GRANULOCYTES 85.0 % Above high normal 4 23 - 78 [facility] ABSOLUTE MONOS 0.6 K/uL Normal 4 0.2 - 1.5 [facility] ABSOLUTE IMMATURE GRANULOCYTES 0.1 K/uL Normal 4 0 - 0.3 [facility] WBC 11.2 K/uL Above high normal 4 3.7 - 10.3 [facility] BASOPHILS 0.0 % Normal 4 0 - 2 [facility] MCV 81.0 fL Below low normal 4 83 - 102 [facility] MONOCYTES 5.0 % Normal 4 0 - 12 [facility] ABSOLUTE NUCLEATED RBC 0.0 K/uL Normal 4 0 - 0.012 [facility] CALCIUM 8.3 mg/dL Below low normal 4 8.5 - 10.1 [facility] MAGNESIUM 1.8 mg/dL Normal 4 1.8 - 2.4 [facility] PRO B-TYPE NATRIURETIC PEPTIDE 763.0 pg/mL Normal 4 0 - 900 [facility] GFRE 79.0 Normal 4 60 - [facility] PROTEIN, TOTAL 6.5 g/dL Normal 4 6.4 - 8.2 [facility] ALT (SGPT) 39.0 U/L Normal 4 12 - 78 [facility] AST (SGOT) 50.0 U/L Above high normal 4 15 - 37 [facility] BILIRUBIN,TOTAL 0.6 mg/dL Normal 4 0.2 - 1 [facility] GLOBULIN 4.1 g/dL Normal 4 2.4 - 4.2 [facility] A/G RATIO 0.6 g/dL Normal 4 [facility] ALKALINE PHOSPHATASE 178.0 U/L Above high normal 4 50 - 136 [facility] SODIUM 133.0 mmol/L Below low normal 4 136 - 145 [facility] GLUCOSE 111.0 mg/dL Above high normal 4 74 - 100 [facility] CREATININE 0.77 mg/dL Normal 4 0.55 - 1.3 [facility] BUN 12.0 mg/dL Normal 4 7 - 18 [facility] CO2 28.0 mmol/L Normal 4 21 - 32 [facility] BUN/CREAT.RATIO 15.6 Normal 4 [facility] POTASSIUM SERUM 2.9 mmol/L Below low normal 09/04/19 2 4 3.5 - 5.1 [facility] ALBUMIN 2.4 g/dL Below low normal 4 3.4 - 5 [facility] CHLORIDE 93.0 mmol/L Below low normal 4 98 - 107 [facility] PATIENT FASTING? UNKNOWN Normal 4 [facility] LACTIC ACID 1.2 mmol/L Normal 4 0.4 - 2 [facility] TROPONIN I HIGH SENSITIVE 26.4 ng/L Significant change down 4 0 - 54 [facility] INFLUENZA A BY PCR INFLUENZA A NEGATIVE. Normal 4 [facility] INFLUENZA B BY PCR INFLUENZA B NEGATIVE. Normal 4 [facility] INFLUENZA B BY PCR INFLUENZA B NEGATIVE. Normal 4 [facility] INFLUENZA A BY PCR INFLUENZA A NEGATIVE. Normal 4 [facility] BASOPHILS 0.0 % Normal 4 0 - 2 [facility] LYMPHS 14.0 % Below low normal 4 16 - 50 [facility] MPV 9.0 fL Normal 4 8 - 12 [facility] MCH 28.0 PG Normal 4 27 - 34 [facility] ABSOLUTE EOS 0.1 K/uL Normal 4 0 - 0.7 [facility] PLATELET COUNT 291.0 K/uL Normal 4 150 - 480 [facility] HCT 35.0 % Below low normal 4 36 - 46 [facility] WBC 7.5 K/uL Normal 4 3.7 - 10.3 [facility] EOSINOPHILS 2.0 % Normal 4 0 - 6 [facility] NUCLEATED RBC 0.0 % Normal 4 0 - 0.2 [facility] IMMATURE GRANULOCYTES 1.0 % Above high normal 4 0 - 0.45 [facility] ABSOLUTE NUCLEATED RBC 0.0 K/uL Normal 4 0 - 0.012 [facility] RBC 4.22 M/uL Normal 4 4 - 5.4 [facility] ABSOLUTE LYMPHS 1.1 K/uL Below low normal 09/01/19 2 4 1.5 - 4.9 [facility] ABSOLUTE GRANULOCYTES 5.7 K/uL Normal 4 2.2 - 7.3 [facility] GRANULOCYTES 76.0 % Normal 4 23 - 78 [facility] MCHC 34.0 g/dL Normal 4 31 - 36 [facility] MCV 83.0 fL Significant fernandes ge up 4 83 - 102 [facility] ABSOLUTE BASO 0.0 K/uL Normal 4 0 - 0.2 [facility] MONOCYTES 7.0 % Normal 4 0 - 12 [facility] ABSOLUTE MONOS 0.6 K/uL Normal 4 0.2 - 1.5 [facility] RDW 11.9 % Normal 4 11.1 - 13.3 [facility] ABSOLUTE IMMATURE GRANULOCYTES 0.0 K/uL Normal 4 0 - 0.3 [facility] HGB 11.9 g/dL Below low normal 4 12.1 - 15.7 [facility] GFRE 65.0 Normal 4 60 - [facility] A/G RATIO 0.6 g/dL Normal 4 [facility] GLOBULIN 4.2 g/dL Normal 4 2.4 - 4.2 [facility] BILIRUBIN,TOTAL 0.5 mg/dL Normal 4 0.2 - 1 [facility] PROTEIN, TOTAL 6.8 g/dL Normal 4 6.4 - 8.2 [facility] ALKALINE PHOSPHATASE 173.0 U/L Above high normal 4 50 - 136 [facility] AST (SGOT) 34.0 U/L Normal 4 15 - 37 [facility] CHLORIDE 97.0 mmol/L Below low normal 4 98 - 107 [facility] CO2 27.0 mmol/L Normal 4 21 - 32 [facility] GLUCOSE 112.0 mg/dL Above high normal 4 74 - 100 [facility] POTASSIUM SERUM 2.9 mmol/L Below low normal 09/01/19 2 4 3.5 - 5.1 [facility] CREATININE 0.91 mg/dL Normal 4 0.55 - 1.3 [facility] ALT (SGPT) 30.0 U/L Normal 4 12 - 78 [facility] ALBUMIN 2.6 g/dL Below low normal 4 3.4 - 5 [facility] BUN/CREAT.RATIO 14.3 Normal 4 [facility] SODIUM 134.0 mmol/L Below low normal 4 136 - 145 [facility] BUN 13.0 mg/dL Normal 4 7 - 18 [facility] PATIENT FASTING? UNKNOWN Normal 4 [facility] TROPONIN I HIGH SENSITIVE 9.5 ng/L Normal 4 0 - 54 [facility] History of Medication Use Medication Directions Dispensed Refills Start Date End Date Stat us iopamidoL (ISOVUE-370) 370 mg iodine /mL (76 %) injection 100 mL 100 mL, intravenous, Once in imaging, Starting on 08/06/24 at 1043, For 1 dose 08/06/2024 5 completed sodium chloride 0.9 % flush 10 mL 10 mL, intravenous, Once, On 08/06/24 at 1044, For 1 dose 08/06/2024 5 completed sodium chloride 0.9 % intravenous solution 50 mL 50 mL, intravenous, Once in imaging, Starting on Tue08/06/24 at 1043, For 1 dose 08/06/2024 5 completed cyclobenzaprine (FLEXERIL) 10 mg tablet Take 1 tablet (10 mg total) by mouth 3 (three) times a day if needed for muscle spasms for up to 10 days. 08/02/2024 active lidocaine 4 % patch 1 patch 1 patch, Topical, Administer over 12 Hours, Once, On Nenita 08/02/24 at 1151, For 1 dose, Apply to affected area 08/02/2024 active tranexamic acid 650 mg tablet Take 3 tablets in the morning for 3 days; start on the first day after your surgery. 04/19/2024 active diclofenac sodium (VOLTAREN XR) 100 mg 24 Hour tablet Take 1 tablet (100 mg total) by mouth 1 (one) time each day if needed. 03/16/2024 active diclofenac sodium (VOLTAREN XR) 100 mg 24 Hour tablet Take 1 tablet (100 mg total) by mouth 1 (one) time each day if needed. 03/16/2024 active diclofenac sodium (VOLTAREN XR) 100 mg 24 Hour tablet Take 1 tablet (100 mg total) by mouth 1 (one) time each day if needed. 03/16/2024 active Eliquis 5 mg tablet Take 1 tablet (5 mg total) by mouth 2 (two) times a day. 03/01/2024 active Eliquis 5 mg tablet Take 1 tablet (5 mg total) by mouth 2 (two) times a day. 03/01/2024 active Eliquis 5 mg tablet Take 1 tablet (5 mg total) by mouth 2 (two) times a day. 03/01/2024 active omeprazole (PriLOSEC) [address] capsule Take 1 capsule (40 mg total) by mouth 2 (two) times a day before meals. 01/27/2024 active omeprazole (PriLOSEC) [address] capsule Take 1 capsule (40 mg total) by mouth 2 (two) times a day before meals. 01/27/2024 active omeprazole (PriLOSEC) [address] capsule Take 1 capsule (40 mg total) by mouth 2 (two) times a day before meals. 01/27/2024 active diclofenac ER 100 mg tablet,extended release 24 hr Take 1 tablet every day by oral route as needed. 01/21/2024 active nitroglycerin (NITROSTAT) SL tablet 0.4 mg 0.4 mg, Sublingual, Once, On Tue11/02/23 at 1100, For 1 doseMax 3 tablets per 15-minute period. 11/02/2023 4 completed olmesartan (BENICAR) 20 MG tablet Take 20 mg by mouth daily. 09/19/2023 active metoprolol succinate (TOPROL-XL) 24 hr tablet 50 mg Take 1 tablet (50 mg total) by mouth daily. 09/10/2023 active Kenalog 40 mg/mL suspension for injection Take 1 mL by injection route. 04/28/2023 4 active lidocaine (PF) 100 mg/5 mL (2 %) injection syringe Take 4 mL by injection route. 04/28/2023 4 active Medrol (Bairon) 4 mg tablets in a dose pack follow package directions 11/24/2022 4 active omeprazole (PriLOSEC) 40 mg capsule TAKE 1 CAPSULE BY MOUTH TWICE DAILY BEFORE MEALS 03/12/2020 active VITAMIN B COMPLEX-C PO 06/11/2014 4 active cefadroxil 500 mg capsule TAKE 1 CAPSULE BY MOUTH TWICE DAILY FOR 7 DAYS 5 completed Eliquis 5 mg tablet TAKE 1 TABLET BY MOUTH TWICE DAILY. START AFTER THE STARTER PACK IS FINISHED 5 completed ondansetron 8 mg disintegrating tablet DISSOLVE 1 TABLET UNDER THE TONGUE EVERY 8 HOURS NEEDED FOR NAUSEA 5 completed benzonatate 200 mg capsule 4 completed lisinopril 30 mg tablet TAKE 1 TABLET BY MOUTH DAILY 4 completed oseltamivir 75 mg capsule TAKE 1 CAPSULE BY MOUTH DAILY X 10 DAYS 4 active Symbicort 80 mcg-4.5 mcg/actuation HFA aerosol inhaler INHALE 2 PUFFS BY MOUTH TWICE DAILY 4 completed lisinopril (PRINIVIL,ZeSTRIL) 30 MG tablet Take 30 mg by mouth daily. 4 aborted Probiotic Product (PROBIOTIC ADVANCED) Cap Take by mouth. Digest Gold 4 aborted doxycycline hyclate 100 mg tablet TAKE 1 TABLET BY MOUTH EVERY 12 HOURS FOR 45 DAYS 3 active atovaquone 750 mg/5 mL oral suspension SHAKE LIQUID AND TAKE 5 ML BY MOUTH EVERY 12 HOURS FOR 10 DAYS DIRECTED 3 completed lidocaine (PF) 10 mg/mL (1 %) injection solution active lidocaine (PF) 100 mg/5 mL (2 %) injection syringe active acetaminophen 500 mg tablet TAKE 2 TABLETS BY MOUTH EVERY 8 HOURS FOR 28 DAYS active betamethasone dipropionate 0.05 % topical cream APPLY TOPICALLY TO THE AFFECTED AREA EVERY 12 HOURS FOR 7 DAYS active Eliquis 2.5 mg tablet TAKE 1 TABLET BY MOUTH TWICE DAILY FOR 14 DAYS active gabapentin 300 mg capsule TAKE 1 CAPSULE BY MOUTH EVERY 8 HOURS FOR 10 DAYS active methocarbamol 750 mg tablet TAKE 1 TABLET BY MOUTH EVERY 6 HOURS NEEDED active omeprazole 40 mg capsule,delayed release TAKE 1 CAPSULE BY MOUTH TWICE DAILY BEFORE MEALS active oxycodone 5 mg tablet TAKE 1 TO 2 TABLETS BY MOUTH EVERY 4 HOURS NEEDED FOR PAIN active prednisone 10 mg tablet USE DIRECTED BY PROVIDER. SEE DIRECTIONS ATTACHED active PreviDent 5000 Booster Plus 1.1 % dental paste USE ONCE A DAY AT NIGHT active Senexon-S 8.6 mg-50 mg tablet TAKE 1 TABLET BY MOUTH TWICE DAILY active cholecalciferol (VITAMIN D3) 1000 UNITS tablet Take 1 tablet (1,000 Units total) by mouth daily. active Cyanocobalamin (VITAMIN B-12) 1000 MCG/15ML LIQD Take 5,000 mcg by mouth daily. active [id number] FACTOR PO Take 400 mcg by mouth daily. active lansoprazole (PREVACID) 30 MG capsule Take 30 mg by mouth daily. active LANSOPRAZOLE PO Take 40 mg by mouth 2 (two) times a day. active metoprolol succinate (TOPROL-XL) 50 mg 24 hr tablet Take 1 tablet (50 mg total) by mouth 1 (one) time each day. active metoprolol succinate (TOPROL-XL) 50 mg 24 hr tablet Take 1 tablet (50 mg total) by mouth 1 (one) time each day. active metoprolol succinate (TOPROL-XL) 50 mg 24 hr tablet Take 1 tablet (50 mg total) by mouth 1 (one) time each day. active olmesartan (BENICAR) 20 mg tablet Take 1 tablet (20 mg total) by mouth 1 (one) time each day at the same time. active olmesartan (BENICAR) 20 mg tablet Take 1 tablet (20 mg total) by mouth 1 (one) time each day at the same time. active olmesartan (BENICAR) 20 mg tablet Take 1 tablet (20 mg total) by mouth 1 (one) time each day at the same time. active TURMERIC CURCUMIN PO Take 1,000 mg by mouth daily. active TURMERIC CURCUMIN PO Take 1,000 mg by mouth daily. active Allergies Allergen Reaction Severity Comment Documented Date Source Statu s NO KNOWN DRUG ALLERGY Mild [facility] Problems Problem Status Onset Date Problem Type Date of Resolution Source GERD (gastroesophageal reflux disease) active ProblemAct [facility] DVT (deep venous thrombosis) ([facility] V24, [facility] V28) active ProblemAct [facility] Pneumonia of both lungs due to infectious organism active 2024-04-04 ProblemAct [facility] Hernia, hiatal active ProblemAct [facility] Palpitations active 2024-04-01 ProblemAct [facility] Spinal stenosis of lumbar region without neurogenic claudication active ProblemAct [facility] Other speech disturbance active EncounterDiagnosisAct [facility] Iron deficiency anemia active ProblemAct [facility] HTN (hypertension) active 2024-04-04 ProblemAct [facility] Hyperlipidemia active 2024-04-04 ProblemAct [facility] PONV (postoperative nausea and vomiting) active 2024-04-01 ProblemAct [facility] Family history of upper GI bleeding active ProblemAct [facility] Morbid obesity ([facility] V24, [facility] V28) active 2024-04-01 ProblemAct [facility] Thrombophlebitis of superficial veins of left lower extremity active 2024-04-04 ProblemAct [facility] H Family history of pulmonary embolism active EncounterDiagnosisAct [facility]_THSFRAN Acute blood loss anemia active 2015-12-21 ProblemAct [facility] Sacroiliac inflammation active 2023-02-25 ProblemAct [facility] Hypokalemia active 2015-12-21 ProblemAct [facility] RAN Other chest pain active 2023-09-28 ProblemAct C TTHSFRAN Iron deficiency anemia active 2015-12-21 ProblemAct [facility] Palpitations active 2023-09-28 ProblemAct [facility] CULLEN Osteoarthritis of left knee, unspecified osteoarthritis type active EncounterDiagnosisAct [facility] Chest pain, unspecified active EncounterDiagnosisAct [facility] RAN Hiatal hernia active 2015-12-21 ProblemAct CTTH SFRAN Acute upper GI bleed active 2015-12-21 ProblemAct [facility] Spinal stenosis of lumbar region without neurogenic claudication active 2023-02-25 ProblemAct [facility] GERD (gastroesophageal reflux disease) active 2015-12-21 ProblemAct [facility] History of DVT (deep vein thrombosis) active 2015-12-21 ProblemAct [facility] SOB (shortness of breath) active 2023-09-28 ProblemAct [facility] History of total knee arthroplasty active 2024-05-07 ProblemAct [facility] Arthritis of knee active 2024-02-07 ProblemAct [facility] Body mass index 40+ - severely obese active 2023-06-16 ProblemAct [facility] Swelling of lower leg active 2023-04-14 ProblemAct [facility] Tendinitis of right rotator cuff active 2023-03-10 ProblemAct [facility] Pain of right hip joint active 2022-12-02 ProblemAct [facility] Lumbar spondylosis active 2023-02-02 ProblemAct [facility] Lumbar arthritis active 2022-11-24 ProblemAct E [facility] Impingement syndrome of right shoulder region active 2023-03-10 ProblemAct [facility] Pain of knee region active 2024-01-21 ProblemAct [facility] Low back pain active 2023-02-02 ProblemAct [facility] Osteoarthritis of left knee joint active 2023-04-14 ProblemAct [facility] Esophageal ulcer without bleeding active 2018-05-26 ProblemAct [facility] Colon cancer screening active 2018-05-26 ProblemAct [facility] Sacroiliitis, not elsewhere classified active 2023-06-28 ProblemAct [facility] Gastroesophageal reflux disease active 2018-05-26 ProblemAct [facility] Other supraventricular tachycardia (HCC) active EncounterDiagnosisAct C [facility] Bronchitis with bronchospasm active EncounterDiagnosisAct [facility] Acute cough active EncounterDiagnosisAct [facility] Encounters Encounter Type Encounter Reason Primary Diagnosis Location Date Emergency DIFF SPEAKING CANT FIND THE WORDS Other speech disturbances [facility] 09/23/2024 Ambulatory [facility] 08/17/2024 Ambulatory [facility] 08/16/2024 Emergency L SIDED FLANK PAIN Chondrocostal junction syndrome (tietze) [facility] 08/06/2024 Emergency abdominal pain Low back pain, unspecified [facility] 08/02/2024 Ambulatory POSTMENOPAUSAL POSTMENOPAUSAL [facility] 06/05/2024 Ambulatory PAIN PAIN [facility] 05/22/2024 Ambulatory [facility] 05/04/2024 Ambulatory ROUTINE Unilateral prima ry osteoarthritis, left knee [facility] 04/24/2024 Ambulatory cardiac clearance Diaphragmatic hernia without obstruction or gangrene [facility] 04/16/2024 Ambulatory PAIN PAIN [facility] 04/11/2024 Ambulatory [facility] 04/09/2024 Ambulatory [facility] 04/09/2024 Ambulatory Encounter for other preprocedural examination Encounter for other preprocedural examination [facility] 04/04/2024 Ambulatory [facility] 03/15/2024 Ambulatory [facility] 03/15/2024 Ambulatory [facility] 03/14/2024 Ambulatory Consult Consult [facility] 03/02/2024 Ambulatory [facility] 02/20/2024 Ambulatory [facility] 02/20/2024 Ambulatory Other specified soft tissue disorders Other specified soft tissue disorders [facility] 02/13/2024 Ambulatory [facility] 02/13/2024 Ambulatory [facility] 02/08/2024 Ambulatory [facility] 02/07/2024 Ambulatory [facility] 02/06/2024 Ambulatory [facility] 02/06/2024 Ambulatory [facility] 01/24/2024 Ambulatory [facility] 01/20/2024 Ambulatory PAIN PAIN [facility] 12/31/2023 Ambulatory [facility] 12/15/2023 Ambulatory [facility] 12/15/2023 Ambulatory Edema, unspecified Edema, unspecified [facility] 12/09/2023 [facility] 12/09/2023 [facility] 12/09/2023 [place] 11/08/2023 Ambulatory Chest pain, unspecified Chest pain, unspecified [facility] 11/07/2023 [place] 11/03/2023 [facility] 10/14/2023 Ambulatory PNEUMONIA PNEUMONIA [facility] 10/14/2023 [facility] 09/14/2023 Inpatient SEPSIS 2/2 PNA,AHRF SEPSIS 2/2 [facility] Emergency FLU LIKE SYMPTOMS FLU LIKE SYMPTOMS [facility] 09/01/2023 Emergency SENT TO BE ADMITTED BY PCP SENT TO BE ADMITTED BY PCP [facility] 08/31/2023 Ambulatory Acute cough Acute cough [facility] 08/31/2023 Ambulatory MODIFY Sacroiliitis, no t elsewhere classified [facility] [place] 07/11/2023 Ambulatory [facility] 06/28/2023 Ambulatory Sacroiliitis, not elsewhere classified Sacroiliitis, not elsewhere classified [facility] 06/28/2023 Ambulatory [facility] 06/17/2023 Ambulatory [facility] 06/15/2023 Ambulatory [facility] 06/15/2023 Ambulatory [facility] 06/15/2023 Ambulatory SCOLIOSIS OF LUMBAR SPINE SCOLIOSIS OF LUMBAR SPINE [facility] 06/03/2023 Ambulatory [facility] 05/21/2023 Ambulatory [facility] 05/11/2023 Ambulatory [facility] 04/14/2023 Ambulatory [facility] 04/14/2023 Ambulatory [facility] 03/10/2023 Ambulatory [facility] 03/10/2023 Ambulatory [facility] 02/02/2023 Ambulatory [facility] 01/24/2023 Ambulatory [facility] 01/24/2023 Ambulatory [facility] 12/27/2022 Ambulatory [facility] 12/02/2022 Ambulatory [facility] 12/02/2022 Ambulatory [facility] 11/24/2022 Ambulatory [facility] 11/24/2022 Ambulatory [facility] 11/24/2022 Ambulatory [facility] 11/24/2022 Ambulatory Encounter for screening for malignant neoplasm of colon [facility] 03/12/2022 Ambulatory Gastro-esophagea l reflux disease without esophagitis [facility] 05/11/2021 Ambulatory Cough, unspecified [facility] 01/28 Ambulatory Ulcer of esophag us without bleeding [facility] 12/03/2020 Care Team Organization Name Specialty Phone Email Start Date End Da te [facility] 08/02/2024 [facility] 08/02/2024 [facility] 07/11/2024 [facility] [address] [facility] 05/09/2024 [facility] [address] [facility] 04/04/2024 [facility] [place] 03/20/2024 [facility] [place] 03/13/2024 [facility] 11/11/2023 [facility] 11/10/2023 09/11/2024 [facility] 11/07/2023 [employer] [facility] Primary [facility] 09/10/2023 [facility] 09/01/2023 08/05/2024 [facility] 09/01/2023 [facility] 09/01/2023 [facility] 07/04/2023 [facility] 05/13/2023 09/02/2024 [facility] 05/13/2023 [facility] ARIELLE HERNANDEZ Primary Care 05/11/2021 05/20/2024 [facility] 02/06/2021 10/17/19 [facility] 02/06/2021 02/07/20 [facility] Anamika Hernandez Primary Care 12/03/2020 05/11/2021
== END 2024-09-28 10:28 | disposition home or self-care (01) ==
LOC: HO.HNS 09:00
PROVIDERS: Visit Provider Neurological Surgery
DX: M41.56 Other secondary scoliosis, lumbar region (principal); M43.16 Spondylolisthesis, lumbar region
CPT/HCPCS: 99204

== ENCOUNTER → 2024-09-28 08:59 | Outpatient (BNVA) | payer MEDICARE, SELFPAY | PROVIDERS: Visit Provider Neurological Surgery | DX: M43.16 Spondylolisthesis, lumbar region (principal); M41.56 Other secondary scoliosis, lumbar region | CPT/HCPCS: 99202 ==

== ENCOUNTER 2024-11-13 06:11 | Inpatient (IN) | payer MEDICARE, SELFPAY ==
--- OUTSIDE RECORDS SUMMARY | 2023-12-30 13:25 | XMS_ITS | Encounter Summary ---
Author Organization [facility] Address [address] [place] [address] Care Team Providers Care Patternmaker Wood Name Role Phone Ubaldo Kevin MD Primary Care Provider [phone] Encounter Details Date Type Department Care Team [...] 8:13 AM EDT documented in this encounter Plan of Treatment Not on [...] on 12/30/2023 3:59 PM. Workstation Name - [id number] 1 Procedure Note Raheem Reyes MD - [...] MD on 12/30/2023 3:59 PM.Workstation Name - [id number] 1 us Brannon [facility] IMG FLUOROSCOPY PROCEDURES Final Result documented in this encounter Visit Diagnoses Diagnosis Pain in right hip documented in this encounter Care Teams Patternmaker Wood Relationship Specialty Start Date End Date Ubaldo Kevin MD [address] [place] [address] PCP - General 12/08/22 documented as of this encounter
[2024-10-31 12:44] VITALS: BP 117/76; PULSE 91; RESP 17; O2SAT 97; BMI 43.9
--- NOTE | 2024-10-31 13:00 | HO.ANESPROP2 ---
Documented by User: Abi Vaca NP 11/09/24 14:06 HPI - Anesthesia Eval Consult details Narrative: 68yo F for L3-5 Oblique Lumbar Interbody Fusion, 11/13/24 Lyme/babeiosis - finished 3 weeks doxy 08/2024 No CP/SOB with walking outside with dog, unable to swim for exercise for ~ 1 year d/t back issues Difficulty with word forming - 1 x ED (Head CT negative) and PCP following. PCP believes side affect amitriptyline - has started weaning off amitriptyline and adding in cymbalta. PONV: treated well with intraop IV antiemetic, has not required scop patch DVTs: 1) 01/2024 extensive thrombus L GSV - treated with eliquis, eval'd by heme and endovascular. Resolving per 03/2024 venous duplex. 2) LLE DVT ~2015 post op shoulder GERD: PCAB (K-competitive acid freda) controls - per GI/EGD's clear of erosive esoph, last EGD ~ 5 years ago - pt asymptomatic 08/2023 1 week ICU admit for bilateral pna/sepsis on bipap (no intubation) PMFSH Active Problems Active Problems: All Active Problems Spondylolisthesis, lumbar region (Acute) Scoliosis of lumbar region due to degenerative disease of spine in adult (Acute) Past Medical History Medical History Babesiosis Lyme disease Arthritis Back pain Anxiety On beta freda at home Tachycardia Shingles History of anticoagulant use Thrombophlebitis Palpitations Postoperative nausea and vomiting Sepsis Bilateral pneumonia Morbid obesity Anemia Hyperlipidemia HTN (hypertension) Hx of transfusion of packed red blood cells Hiatal hernia GERD (gastroesophageal reflux disease) Upper GI bleed DVT (deep venous thrombosis) Family History Family history of problems with anesthesia: No Surgical History Surgical History Hx of arthroscopic knee surgery History of excision of pilonidal cyst Hx of repair of right rotator cuff (~2015) History of esophagogastroduodenoscopy (EGD) Hx of tonsillectomy History of Problems with Anesthesia: Yes (PONV tx'd well with IV) Social History Social History Are you a primary healthcare corporate account director to a significant other at home: No Do you presently have visiting nurse or other home services: No Patient Tobacco Use Status: Never used Tobacco Use of substances other than those prescribed or required for medical reasons: No Have you been hit, kicked, punched, or otherwise hurt by someone within the past year? If so, by whom?: No Are you DNR?: No Advance Directives: No Advance Directives Information Provided: No Advance Directives on File: No Patient : No : No Poor oral hygiene: No Meds Allergies Allergy/AdvReac Type Severity Reaction Status Date / Time No Known Allergies Allergy Verified 11/13/24 06:13 Home Medications ?Medication ?Instructions ?Recorded ?Confirmed ?Last Taken ?Type metoprolol succinate 50 mg 50 mg PO DAILY 09/28/24 10/31/24 11/13/24 04:30 History tablet,extended release 24 hr ascorbic acid (vitamin C) (Vitamin 1 g PO DAILY 10/31/24 10/31/24 11/05/24 History C oral powder) multivitamin 1 tab PO DAILY 10/31/24 10/31/24 11/05/24 History omega 6-bni-ixz-fish oil 1,200 mg 1 cap PO DAILY 10/31/24 10/31/24 10/29/24 History (144 mg-216 mg) capsule (Fish Oil) turmeric 400 mg capsule 400 mg PO DAILY 10/31/24 10/31/24 11/05/24 History vonoprazan 10 mg tablet (Voquezna) 10 mg PO BID 10/31/24 10/31/24 11/13/24 04:30 History Exam Height,Weight and Vital Signs: Height 5 ft 2 in Weight 108.862 kg Last Vital Signs Pulse 91 10/31/24 12:44 Resp 17 10/31/24 12:44 BP 117/76 10/31/24 12:44 Pulse Ox 97 10/31/24 12:44 O2 Del Method Room Air 10/31/24 12:44 Pertinent Lab Results Pertinent Lab Results: Outside labs 08/2024 WBC 4.0 - 10.5 K/mcL 7.5 ?R RBC 4.20 - 5.40 M/mcL 4.44 ?R Hemoglobin 12.5 - 16.0 g/dL 12.3?Low? ?R Hematocrit 37.0 - 47.0 % 36.7?Low? ?R MCV 78.0 - 100.0 FL 82.7 ?R MCH 25.0 - 33.0 pcg 27.7 ?R MCHC 32.0 - 36.0 g/dL 33.5 ?CM RDW 12.1 - 16.2 % 16.0 ?R Platelets 150 - 450 K/mcL 342 Sodium 135 - 145 mmol/L 135 ?R Potassium 3.5 - 5.1 mmol/L 4.1 ?R Chloride 98 - 107 mmol/L 100 ?R CO2 24 - 32 mmol/L 25 ?R Anion Gap 5 - 14 10 Glucose 70 - 99 mg/dL 114?High? ?R ?R ?R, CM BUN 7 - 17 mg/dL 20?High? ?R Creatinine 0.50 - 1.00 mg/dL 1.11?High? ?R eGFR >=60 mL/min/1.73m2 54?Low? ?CM ?CM ?R Comment:?Calculation based on the Chronic Kidney Disease Epidemiology Collaboration (CKD-EPI) equation refit without adjustment for race. BUN/Creatinine Ratio 12.0 - 20.0 18.0 ?R, CM Calcium 8.4 - 10.2 mg/dL 9.0 ?R AST (SGOT) 5 - 40 unit/L 25 ?R ALT (SGPT) 7 - 52 unit/L 16 ?R Alkaline Phosphatase 34 - 104 unit/L 90 ?R Total Protein 6.4 - 8.5 g/dL 7.7 ?R Albumin 3.5 - 5.0 g/dL 4.5 ?R Total Bilirubin 0.3 - 1.0 mg/dL 0.4 Magnesium 1.7 - 2.8 mg/dL 2.3 Lab Results 10/31/24 Range/Units 13:35 Blood Type A Positive Antibody Screen NEGATIVE Narrative Narrative: EKG 08/2024 Rate: ECG rate: 84 ECG rate assessment: normal Rhythm: Rhythm: sinus rhythm Ectopy: Ectopy: none QRS: QRS axis: Normal QRS intervals: Normal QRS conduction: normal ST segments: ST segments: Normal T waves: T waves: normal Q waves: Abnormal Q-waves: not present Other findings: Other findings: LVH ? ? CT Head wo Contrast 08/2024 Final Result ? No acute intracranial abnormality including hemorrhage, mass effect, hydrocephalus, or acute territorial edematous infarction. ? Report reviewed and signed by : Dr. Otoniel Marinelli on 09/23/2024 2:35 PM. Workstation Name - Airway Mallampati Class: III TM Dist: >3cm Neck ROM: Limited (degenerative cspine disease) Heart: RRR Lungs: CTAB Assessment and Plan Assessment Anesthesia Assessment: Anesthesia Plan Discussed and PAT Visit Final Anesthetic Review Family History of Problems with Anesthesia: No History of Problems with Anesthesia: Yes (PONV tx'd well with IV) Documented by User: Chasity Anaya MD 11/13/24 07:57 PMFSH Past Medical History Medical History Babesiosis Lyme disease Arthritis Back pain Anxiety On beta freda at home Tachycardia Shingles History of anticoagulant use Thrombophlebitis Palpitations Postoperative nausea and vomiting Sepsis Bilateral pneumonia Morbid obesity Anemia Hyperlipidemia HTN (hypertension) Hx of transfusion of packed red blood cells Hiatal hernia GERD (gastroesophageal reflux disease) Upper GI bleed DVT (deep venous thrombosis) Surgical History Surgical History Hx of arthroscopic knee surgery History of excision of pilonidal cyst Hx of repair of right rotator cuff (~2015) History of esophagogastroduodenoscopy (EGD) Hx of tonsillectomy Social History Social History Are you a primary healthcare corporate account director to a significant other at home: No Do you presently have visiting nurse or other home services: No Patient Tobacco Use Status: Never used Tobacco Use of substances other than those prescribed or required for medical reasons: No Have you been hit, kicked, punched, or otherwise hurt by someone within the past year? If so, by whom?: No Are you DNR?: No Advance Directives: No Advance Directives Information Provided: No Advance Directives on File: No Patient : No : No Poor oral hygiene: No Meds Allergies Allergy/AdvReac Type Severity Reaction Status Date / Time No Known Allergies Allergy Verified 11/13/24 06:13 Home Medications ?Medication ?Instructions ?Recorded ?Confirmed ?Last Taken ?Type metoprolol succinate 50 mg 50 mg PO DAILY 09/28/24 10/31/24 11/13/24 04:30 History tablet,extended release 24 hr ascorbic acid (vitamin C) (Vitamin 1 g PO DAILY 10/31/24 10/31/24 11/05/24 History C oral powder) multivitamin 1 tab PO DAILY 10/31/24 10/31/24 11/05/24 History omega 5-prc-gip-fish oil 1,200 mg 1 cap PO DAILY 10/31/24 10/31/24 10/29/24 History (144 mg-216 mg) capsule (Fish Oil) turmeric 400 mg capsule 400 mg PO DAILY 10/31/24 10/31/24 11/05/24 History vonoprazan 10 mg tablet (Voquezna) 10 mg PO BID 10/31/24 10/31/24 11/13/24 04:30 History Assessment and Plan Assessment Anesthesia Assessment: Chart Reviewed Final Anesthetic Review NPO: Yes ASA Class: III Final Preanesthetic Review: No Changes in Pt Med Stat, Meds/Allgs Chart Reviewed, Consent Obtained/Reviewed and Anes Risks/Benef Reviewed Patient Risk: Intermediate Procedure Risk: Intermediate Anesthetic Plan Anesthetic Plan: GA Disposition: Standard PACU
[2024-11-13] VITALS (17 sets, daily range): BP systolic 117–173; BP diastolic 57–83; PULSE 63–86; RESP 6–20; TEMP 34.6–37.2; O2SAT 95–99; BMI 45.6
--- NOTE | ~2024-11-13 | FL_ITS ---
EXAMINATION: FL GUIDANCE ONLY HISTORY: L3-5 OLIF COMPARISON: None available. TECHNIQUE: Fluoroscopy time: 1 minute, 19 seconds. Cumulative Dose: 99.93 mGy. DAP: 40.071 mGym2 Images: 8. FINDINGS: Fluoroscopic spot films of the lumbar spine demonstrate posterior fusion of L4 and L5 with pedicle screws, spinal stabilization rods, and an intervertebral spacer. FL/FL guidance in OR IMPRESSION: Fluoroscopy during procedure. Please see procedure report for additional information. Electronically signed by: Raheem Lopez MD 11/13/2024 10:25 AM EDT
--- OUTSIDE RECORDS SUMMARY | 2024-11-13 06:27 | XMS_ITS | Encounter Summary ---
Author Organization [facility] Address [address] [place] [address] Care Team Providers Care Burrito Maker Name Role Phone Karine Anamika KATHARINA Unavailable [phone] Ubaldo Kevin MD Primary Care Provider [phone] Encounter Details Date Type Department Care Team (Late st Contact Info) Description 05/11/2021 Scanned Document [facility] [address] [place] [address] [place] [address] Andrey Kevin MD [facility] [address] [place], [place] [id number] Social History Tobacco Use Types Packs/Day Years [...] Orientation Heterosexual (straight) 04/06 9:38 AM EST COVID-19 Exposure Response Date Recorded In the last month, have you been in contact with someone who was confirmed or suspected to have Coronavirus / COVID-19? No / Unsure 05/11/2021 6:38 AM EDT documented as of this encounter Plan of Treatment Not on file documented as of this encounter Procedures Procedure Name Priority Date/Time Associated Diagnosis Comments PATHOLOGY REPORT 05/11/2021 12:0 0 AM EDT documented in this encounter Results * PATHOLOGY REPORT (05/11/2021 12:00 AM EDT) us Andrey Kevin MD PATHOLOGY/CYTOLOGY ORDERABLES F inal Result documented in this encounter Visit Diagnoses Not on filedocumented in this encounter Care Teams Burrito Maker Relationship Specialty Start Date End Date Anamika Milton ND PCP - Allergy Naturopathic Medicine 05/26/18 Ubaldo Kevin MD [address] [address] PCP - General Internal Medicine 05/26/18 documented as of this encounter
--- OUTSIDE RECORDS SUMMARY | 2024-11-13 06:27 | XMS_ITS | Encounter Summary ---
Author Organization [facility] Address [address] [place] [address] Care Team Providers Care [employer] Cook Name Role Phone Andrey Kevin MD Primary Care Provider [phone] Raheem Allen MD Primary Care Provider [phone] Anamika Milton ND Unavailable [phone] Ubaldo Kevin MD Primary Care Provider [phone] Encounter Details Date Type Department Care Team (Late st Contact Info) Description 04/21/2010 Scanned Document [address] [place] [id number] Provider, Generic Social History Tobacco Use Types Packs/Day Years Used Date Smoking Tobacco: Never Assessed Comments Unknown Sex and Gender Information Value Date Recorded Sex Assigned at Female 02/11/2024 8:26 AM EST Legal Sex Female 3:14 PM EDT Gender Identity Female 04/06/2024 9:38 AM EST Sexual Orientation Heterosexual (straight) 04/06 9:38 AM EST documented as of this encounter Plan of Treatment Not on file documented as of this encounter Procedures Procedure Name Priority Date/Time Associated Diagnosis Comments CT SCAN EXTERNAL RESULT 04/21/2010 documented in this encounter Results * CT SCAN EXTERNAL RESULT (04/21/2010) Anatomical Region Laterality Modality Computed Tomogra phy Narrative 05/28/2016 2:30 AM EDT Ordered by an unspecified provider. us Generic Provider IMG CT ORDERABLES Final Result documented in this encounter Visit Diagnoses Not on filedocumented in this encounter Care Teams [employer] Cook Relationship Specialty Start Date End Date Andrey Kevin MD PCP - General Gastroenterology 04/07/16 04/15/16 Raheem Allen MD [address] [place] [address] PCP - General Family Medicine 04/16/16 05/25/18 Anamika Milton ND [address] [place] [address] PCP - Allergy Naturopathic Medicine 05/26/18 Ubaldo Kevin MD [address] [address] PCP - General Internal Medicine 05/26/18 documented as of this encounter
--- OUTSIDE RECORDS SUMMARY | 2024-11-13 06:27 | XMS_ITS | Clinical Summary ---
Author Organization [facility] [place] [address] Phone Care Team Providers Care Refuse Collector Supervisor Name Role Phone Ubaldo Kevin MD Primary Care Provider [phone] Allergies No known active allergies Medications diclofenac sodium (VOLTAREN XR) 100 mg 24 Hour tablet Take 1 tablet (100 mg total) by mouth 1 (one) time each day if needed. 03/16/2024 Active metoprolol succinate (TOPROL-XL) 50 mg 24 hr tablet Take 1 tablet (50 mg total) by mouth 1 (one) time each day. Active omeprazole (PriLOSEC) [address] capsule Take 1 capsule (40 mg total) by mouth 2 (two) times a day before meals. 01/27/2024 Active olmesartan (BENICAR) 20 mg tablet Take 1 tablet (20 mg total) by mouth 1 (one) time each day at the same time. Active Eliquis 5 mg tablet Take 1 tablet (5 mg total) by mouth 2 (two) times a day. 03/01/2024 Active cyclobenzaprine (FLEXERIL) 10 mg tablet Take 1 tablet (10 mg total) by mouth 3 (three) times a day if needed for muscle spasms for up to 10 days. 15 tablet 08/02/2024 Active Active Problems Problem Noted Date Diagnosed Date Pre-operative clearance 04/16/2024 HTN (hypertension) 04/04/2024 Assessment & Plan (04/04/2024 3:40 PM EST): BP in office 130/84, currently managed with metoprolol and olmesartan and clinically appears stable. Continue current treatment and outpatient management. Hyperlipidemia 04/04/2024 Assessment & Plan (04/04/2024 3:40 PM EST): No lipid panel for review, hyperlipidemia per patient report, managed by production sanitizer, not taking statin. Low-cholesterol diet and lifestyle modification. Suggest continued outpatient follow up. Pneumonia of both lungs due to infectious organi sm 04/04/2024 Overview (04/04/2024): Per patient, hospitalized at [facility] in August 2023 with bilateral pneumonia and sepsis. Followed with pulmonary at discharge Assessment & Plan (04/10/2024 3:47 PM EST): August 2023 was hospitalized for pneumonia and sepsis at [facility] for 1 week in the ICU. She states that she feels better after discharge although her energy level has not fully returned. She has had follow-up with pulmonary outpatient. I have reviewed her most recent consult from 02/07/2024. PFTs normal. No asthma or COPD. Pneumonia has completely resolved. Lungs are clear on exam today, SpO2 98%. She is a non-smoker. ARISCAT: 3 points, low risk, 1.6% risk of in-hospital post-op pulmonary complications Thrombophlebitis of superfic ial veins of left lower extremity 04/04/2024 Overview (04/04/2024): Great saphenous vein on vascular duplex 02/20/24 Assessment & Plan (04/23/2024 11:02 AM EST): She currently has a superficial thrombophlebitis to the greater saphenous vein on the left-hand side which is the operative leg. She is being treated with Eliquis 5 mg twice per day. Has been evaluated by vascular surgery and hematology. Hematology has stated patient may stop the Eliquis 3 days prior to surgery and resume once safe to do so and continue for 1 month after surgery. Her last Doppler ultrasound was in January 2024, vascular note states plan is to update ultrasound in April. She does have some chronic mild erythema to the left ankle with chronic swelling bilaterally which is greater on the left leg. The area does not appear to be cellulitis at this point in time. Repeat Doppler ultrasound 04/10/24 shows no DVT and improvement of superficial thrombophlebitis to the left lower extremity. Palpitations 04/01/2024 Assessment & Plan (04/04/2024 3:40 PM EST): Patient states the palpitations have resolved, asymptomatic. She was seen by cardiology after her hospitalization. Holter unremarkable. Stress testing showed some possible ischemia, subsequent CTA of the heart revealed normal coronary arteries without plaques or stenosis. EKG today unchanged, NSR. Suggest continued outpatient follow up and management. PONV (postoperative nausea and vomiting) 025 Assessment & Plan (04/04/2024 3:40 PM EST): No glaucoma history. Attention to postoperative nausea and vomiting during hospitalization. This will be discussed during the perioperative setting with anesthesia. Morbid obesity (CMS/HCC V24, CMS/HCC V28) 2024 Assessment & Plan (04/04/2024 3:40 PM EST): The patient s BMI of 45 is in the obese range which increases the risk for obesity related diseases, some of which are in the patient s history. The patient would likely benefit from an assessment of environmental factors to include dietary instructions/strategies and activity modification which can be further addressed as an outpatient. BMI >40, ADD VANCOMYCIN pre-op. DVT (deep venous thrombosis) (CMS/HCC V24, [facility]/ CC V28) Assessment & Plan (04/04/2024 3:40 PM EST): Patient has a history of a DVT to her left leg after rotator cuff surgery 2016. 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 She has consulted with hematology already. She is currently taking Eliquis for superficial thrombophlebitis to the greater saphenous vein of the left leg. Will hold Eliquis for 3 days prior to surgery and continue for 1 month after surgery. She does have follow-up planned with hematology. Family history of upper GI bleeding GERD (gastroesophageal reflux disease) Assessment & Plan (04/04/2024 3:40 PM EST): Taking PPI. No alarm symptoms. Suggest attention to GI prophylaxis periop. History of transfusion Hernia, hiatal Iron deficiency anemia Assessment & Plan (04/04/2024 3:40 PM EST): History of iron deficiency anemia after acute blood loss due to bleeding esophageal ulcer. Followed by GI. Anemia has resolved. Preop H/H 12.2/37.6. Suggest continued outpatient follow up and management. Spinal stenosis of lumbar re gion without neurogenic claudication Assessment & Plan (04/04/2024 3:40 PM EST): Notable history includes diagnosis of lumbar spinal stenosis. She tells me she has chronic back pain. No radiation of pain. She is unclear of which level the spinal stenosis is located. Encounters Date Type Department Care Team Description 09/23/2024 12:09 PM EDT - 09/23/2024 3:19 PM EDT Emergency [facility] Emergency [address] [place] [id number] Estrada Petty MD Other speech disturbance (Primary Dx) Discharge Disposition: Home or Self Care from Last 3 Months Surgical History Surgery Date Site/Laterality Comments ROTATOR CUFF REPAIR 02/28/2015 - 02/28/2016 Right TONSILLECTOMY OTHER SURGICAL HISTORY PILONIDAL CYST / SINUS EXCISION UPPER GASTROINTESTINAL ENDOSCOPY 03/15/2016 N/A UPPER GASTROINTESTINAL ENDOSCOPY 12/22/2015 N/A Medical History Medical History Date Comments Hernia, hiatal DVT (deep venous thrombosis) ([facility], [facility] V[facility]) left GERD (gastroesophageal reflux disease) History of transfusion Family history of upper GI bleeding Iron deficiency anemia Palpitations 04/01/2024 PONV (postoperative nausea a nd vomiting) 04/01/2024 Morbid obesity ([facility] V24, [facility] V28) 04/01/2024 HTN (hypertension) 04/04/2024 Hyperlipidemia 04/04/2024 Pneumonia of both lungs due to infectious organism 04/04/2024 Per patient, hospitalized at [facility] in August 2023 with bilateral pneumonia and sepsis. Followed with pulmonary at discharge Thrombophlebitis of superfic ial veins of left lower extremity 04/04/2024 Great saphenous vein on vasc ular duplex 02/20/24 Family History Medical History Relation Name Comments Clotting disorder Mother PE Relation Name Status Comments Mother Social History Tobacco Use Types Packs/Day Years [...] not to disclose 2024 10:21 AM EDT Obstetrics History Last Filed Vital Signs Vital Sign Reading Time Taken Comments Blood Pressure 137/82 09/23/2024 2:04 PM EDT Pulse 74 09/23/2024 2:04 PM EDT Temperature 36.6 C (97.9 F) 09/23/2024 12:30 PM EDT Respiratory Rate 17 09/23/2024 12:30 PM EDT Oxygen Saturation 94% 09/23/2024 2:04 PM EDT Inhaled Oxygen Concentration - - Weight 102 kg (224 lb) 08/06/2024 9:22 AM EDT Height 154.9 cm (5' 1 ) 08/06/2024 9:22 AM EDT Body Mass Index 42.32 08/06/2024 9:22 AM EDT Plan of Treatment Health Maintenance Due Date Last Done Comments Breast Cancer Screening 1955 DTaP,Tdap,and Td Vaccines (1 - Tdap) 1973 Pneumococcal Vaccine: 50+ Years (1 of 1 - PCV) 2004 RSV Immunization Adult Patients (1 - Risk 60-74 years 1-dose series) 2014 Cholesterol Screening (Lipid Panel) 04/03/2023 Colorectal Cancer Screening: Colonoscopy 04/03/2023 Falls Risk Assessment 04/03/2023 Hepatitis C Screening 04/03/2023 Medicare Annual Wellness Visit 04/03/2023 Osteoporosis Screening (Bone Density Screening) 04/03/2023 Social Influencers of Health Screening 04/03/2023 Zoster Vaccines (2 of 2) 06/27/2023 05/02/2023 Depression Screening 02/29/2024 COVID-19 Vaccine ( season) 2024 04/15/2021, 06/23/2020, 06/02/2020 Influenza Vaccine (#1) 2024 Hypertension/CHF/CAD Annual BMP Blood Test 09/23/2025 09/23/2024, 08/06/2024, 08/02/2024, Additional history exists HIB Vaccines Aged Out No longer eligi ble based on patient's age to complete this topic HPV Vaccines Aged Out No longer eligi ble based on patient's age to complete this topic Hepatitis A Vaccines Aged Out No long er eligible based on patient's age to complete this topic Hepatitis B Vaccines Aged Out No long er eligible based on patient's age to complete this topic IPV Vaccines Aged Out No longer eligi ble based on patient's age to complete this topic MMR Vaccines Aged Out No longer eligi ble based on patient's age to complete this topic Meningococcal ACWY Vaccine Aged Out N o longer eligible based on patient's age to complete this topic Meningococcal B Vaccine Aged Out No l onger eligible based on patient's age to complete this topic RSV Immunization Patients Under 20 months Aged Out No longer eligible based on patient's age to complete this topic Varicella Vaccines Aged Out No longer eligible based on patient's age to complete this topic Procedures Procedure Name Priority Date/Time Associated Diagnosis Comments CT HEAD WO CONTRAST STAT 09/23/2024 2 :13 PM EDT MAGNESIUM STAT 09/23/2024 1:41 PM EDT RHYTHM ECG, REPORT Routine 09/23/2024 1: 18 PM EDT CBC WITH AUTO DIFFERENTIAL STAT 09/23/2024 12:33 PM EDT COMPREHENSIVE METABOLIC PANEL STAT 09/23/2024 12:33 PM EDT CBC AND DIFFERENTIAL STAT 09/23/2024 12:33 PM EDT PROCEDURAL ECG Routine 09/23/2024 12:16 PM EDT POCT GLUCOSE BLOOD Routine 09/23/2024 12 :15 PM EDT from Last 3 Months Results * CT Head wo Contrast (09/23/2024 2:13 PM EDT) Anatomical Region Laterality Modality Head and Neck Computed Tomogra phy 09/23/2024 2:33 PM EDT Impressions 09/23/2024 2:35 PM EDT No acute intracranial abnormality including hemorrhage, mass effect, hydrocephalus, or acute territorial edematous infarction. Report reviewed and signed by : Dr. Otoniel Marinelli on 09/23/2024 2:35 PM. Workstation Name - [id number] -------- FINAL REPORT -------- Dictated By: Otoniel Marinelli Dictated Date: 09/23/2024 14:33 ET Assigned Physician: Otoniel Marinelli Reviewed and Electronically Signed By: Otoniel Marinelli Signed Date: 09/23/2024 14:35 ET Workstation ID: [id number] Transcribed By: Self Edit Transcribed Date: 09/23/2024 14:33 ET Narrative 09/23/2024 2:35 PM EDT EXAMINATION: CT HEAD WO CONTRAST CLINICAL INFORMATION: Intermittent speech impairment COMPARISON: None. TECHNIQUE: Contiguous axial imaging was performed from the skull base to vertex without intravenous contrast. Sagittal and coronal reformatted images were obtained. RADIATION DOSE INDICATORS: CT Dose Summary Up-to-date CT equipment and radiation dose reduction techniques were employed. CTDIvol: 39.0 mGy. DLP: 688 mGy-cm. These indicators are not patient dose, but values generated from the CT scanner acquisition factors. This CT examination was performed using dose optimization techniques as appropriate, variously including the following: *Automated exposure control *Adjustment of mA and/or kV according to patient size (this includes techniques or standardized protocols for targeted exams where dose is matched to indication/reason for exam; i.e. extremities or head) *Use of iterative reconstruction technique FINDINGS: No acute osseous or soft tissue abnormality. The mastoid air cells and visualized portions of the paranasal sinuses are well aerated. There is no evidence of acute intracranial hemorrhage or territorial infarction. No abnormal mass effect or midline shift is seen. Gomez to white matter differentiation is well preserved. No extra-axial fluid collections are identified. No hydrocephalus. Proportional prominence of the ventricles and sulcal spaces is consistent with moderate volume loss. Patchy periventricular and deep white matter hypoattenuation is consistent with mild small vessel ischemic changes. No hyperdense vessels identified. Procedure Note Otoniel Marinelli MD - 09/23/2024 EXAMINATION: CT HEAD WO CONTRAST CLINICAL INFORMATION: Intermittent speech impairment COMPARISON: None. TECHNIQUE: Contiguous axial imaging was performed from the skull base to vertexwithout intravenous contrast. Sagittal and coronal reformatted images wereobtained. RADIATION DOSE INDICATORS: CT Dose Summary Up-to-date CT equipment and radiation dose reduction techniques wereemployed. CTDIvol: 39.0 mGy. DLP: 688 mGy-cm. These indicators are not patient dose, but values generated from the CTscanner acquisition factors. This CT examination was performed using dose optimization techniques asappropriate, variously including the following: *Automated exposure control *Adjustment of mA and/or kV according to patient size (this includestechniques or standardized protocols for targeted exams where dose ismatched to indication/reason for exam; i.e. extremities or head) *Use of iterative reconstruction technique FINDINGS: No acute osseous or soft tissue abnormality. The mastoid air cells andvisualized portions of the paranasal sinuses are well aerated. There is no evidence of acute intracranial hemorrhage or territorialinfarction. No abnormal mass effect or midline shift is seen. Gomez towhite matter differentiation is well preserved. No extra-axial fluidcollections are identified. No hydrocephalus. Proportional prominence of the ventricles and sulcalspaces is consistent with moderate volume loss. Patchy periventricular anddeep white matter hypoattenuation is consistent with mild small vesselischemic changes. No hyperdense vessels identified. IMPRESSION: No acute intracranial abnormality including hemorrhage, mass effect,hydrocephalus, or acute territorial edematous infarction. Report reviewed and signed by : Dr. Otoniel Marinelli on 09/23/2024 2:35 PM.Workstation Name - [id number] -------- FINAL REPORT -------- Dictated By: Otoniel Marinelli Dictated Date: 09/23/2024 14:33 ET Assigned Physician: Otoniel Marinelli Reviewed and Electronically Signed By: Otoniel Marinelli Signed Date: 09/23/2024 14:35 ET Workstation ID: [id number] Transcribed By: Self Edit Transcribed Date: 09/23/2024 14:33 ET us Estrada Petty MD IMG CT PROCEDURES Final Result * Magnesium (09/23/2024 1:41 PM EDT) Magnesium 2.3 1.7 - 2.8 mg/dL LAB CHEMISTRY METHOD 09/23/2024 2:01 PM EDT [facility] Comment:Slight Hemolysis may affect test result(s). Blood Venous blood specimen / Unknown Venipuncture / Unknown 09/23/2024 1:41 PM EDT 09/23/2024 1:43 PM EDT us Estrada Petty MD LAB BLOOD ORDERABLES Final Resu lt [facility] [address] [place] [address], [place] [phone] * RHYTHM ECG, REPORT (09/23/2024 1:18 PM EDT) Estrada Gilmore MD - 09/23/2024 1:18 PM EDT Estrada Petty MD 09/24/2024 9:45 AM ECG Rhythm Interpretation and Report Date/Time: 09/23/2024 1:18 PM Performed by: Estrada Petty MD Authorized by: Estrada Petty MD ECG interpreted by ED Physician in the absence of a cupola tapper helper: yes Rate: ECG rate: 84 ECG rate assessment: normal Rhythm: Rhythm: sinus rhythm Ectopy: Ectopy: none QRS: QRS axis: Normal QRS intervals: Normal QRS conduction: normal ST segments: ST segments: Normal T waves: T waves: normal Q waves: Abnormal Q-waves: not present Other findings: Other findings: LVH us Estrada Petty MD ECG ORDERABLES Final Result * (ABNORMAL) CBC auto differential (09/23/2024 12:33 PM EDT) [facility] WBC 7.5 4.0 - 10.5 K/mcL LAB HEMETOLOGY METHOD 09/23/2024 12:39 PM EDT [facility] RBC 4.44 4.20 - 5.40 M/mcL LAB HEMETOLOGY METHOD 09/23/2024 12:[facility] Hemoglobin 12.3(L) 12.5 - 16.0 g/dL LAB HEMETOLOGY METHOD 09/23/2024 12:39 PM [facility] Hematocrit 36.7(L) 37.0 - 47.0 % LAB HEMETOLOGY METHOD 09/23/2024 12:39 PM [facility] MCV 82.7 78.0 - 100.0 FL LAB HEMETOLOGY METHOD 09/23/2024 12:39 PM [facility] MCH 27.7 25.0 - 33.0 pcg LAB HEMETOLOGY METHOD 09/23/2024 12:39 PM [facility] MCHC 33.5 32.0 - 36.0 g/dL LAB HEMETOLOGY METHOD 09/23/2024 12:39 PM [facility] RDW 16.0 12.1 - 16.2 % LAB HEMETOLOGY METHOD 09/23/2024 12:39 PM [facility] Platelets 342 150 - 450 K/mcL LAB HEMETOLOGY METHOD 09/23/2024 12:39 PM [facility] MPV 9.1 7.4 - 11.4 FL LAB HEMETOLOGY METHOD 09/23/2024 12:39 PM [facility] Neutrophils Relative 54.5 44.0 - 74.0 % LAB HEMETOLOGY METHOD 09/23/2024 12:39 PM [facility] Lymphocytes Relative 32.6 20.0 - 48.0 % LAB HEMETOLOGY METHOD 09/23/2024 12:39 PM [facility] Monocytes Relative 7.0 2.0 - 12.0 % LAB HEMETOLOGY METHOD 09/23/2024 12:39 PM [facility] Eosinophils Relative 5.1 0.0 - 6.0 % LAB HEMETOLOGY METHOD 09/23/2024 12:39 PM [facility] Basophils Relative 0.5 0.0 - 2.0 % LAB HEMETOLOGY METHOD 09/23/2024 12:39 PM [facility] Neutrophils Absolute 4.06 1.80 - 7.80 K/mcL LAB HEMETOLOGY METHOD 09/23/2024 12:39 PM [facility] Lymphocytes Absolute 2.43 1.00 - 3.20 K/mcL LAB HEMETOLOGY METHOD 09/23/2024 12:39 PM [facility] Monocytes Absolute 0.52 0.00 - 0.80 K/mcL LAB HEMETOLOGY METHOD 09/23/2024 12:39 PM [facility] Eosinophils Absolute 0.38 0.00 - 0.50 K/mcL LAB HEMETOLOGY METHOD 09/23/2024 12:39 PM [facility] Basophils Absolute 0.04 0.00 - 0.20 K/mcL LAB HEMETOLOGY METHOD 09/23/2024 12:39 PM [facility] Blood Venous blood specimen / Unknown Venipuncture / Unknown 09/23/2024 12:33 PM EDT 09/23/2024 12:36 PM EDT us Estrada Petty MD LAB BLOOD ORDERABLES Final Resu lt [facility] [address] [place] [address], [place] [phone] * (ABNORMAL) Comprehensive metabolic panel (09/23/2024 12:33 PM EDT) Sodium 135 135 - 145 mmol/L LAB CHEMISTRY METHOD 09/23/2024 1:00 PM [facility] Potassium 4.1 3.5 - 5.1 mmol/L LAB CHEMISTRY METHOD 09/23/2024 1:00 PM [facility] Chloride 100 98 - 107 mmol/L LAB CHEMISTRY METHOD 09/23/2024 1:00 PM [facility] CO2 25 24 - 32 mmol/L LAB CHEMISTRY METHOD 09/23/2024 1:00 PM [facility] Anion Gap 10 5 - 14 LAB CHEMISTRY METHOD 09/23/2024 1:00 PM [facility] Glucose 114(H) 70 - 99 mg/dL LAB CHEMISTRY METHOD 09/23/2024 1:00 PM [facility] BUN 20(H) 7 - 17 mg/dL LAB CHEMISTRY METHOD 09/23/2024 1:00 PM [facility] Creatinine 1.11(H) 0.50 - 1.00 mg/dL LAB CHEMISTRY METHOD 09/23/2024 1:00 PM [facility] eGFR 54(L) >=60 mL/min/1. 73m2 LAB CHEMISTRY METHOD 09/23/2024 1:00 PM [facility] Comment:Calculation based on the Chronic Kidney Disease Epidemiology Collaboration (CKD-EPI) equation refit without adjustment for race. BUN/Creatinine Ratio 18.0 12.0 - 20.0 LAB CHEMISTRY METHOD 09/23/2024 1:00 PM [facility] Calcium 9.0 8.4 - 10.2 mg/dL LAB CHEMISTRY METHOD 09/23/2024 1:00 PM [facility] AST (SGOT) 25 5 - 40 unit/L LAB CHEMISTRY METHOD 09/23/2024 1:00 PM [facility] ALT (SGPT) 16 7 - 52 unit/L LAB CHEMISTRY METHOD 09/23/2024 1:00 PM [facility] Alkaline Phosphatase 90 34 - 104 unit/L LAB CHEMISTRY METHOD 09/23/2024 1:00 PM [facility] Total Protein 7.7 6.4 - 8.5 g/dL LAB CHEMISTRY METHOD 09/23/2024 1:00 PM [facility] Albumin 4.5 3.5 - 5.0 g/dL LAB CHEMISTRY METHOD 09/23/2024 1:00 PM [facility] Total Bilirubin 0.4 0.3 - 1.0 mg/dL LAB CHEMISTRY METHOD 09/23/2024 1:00 PM [facility] Blood Venous blood specimen / Unknown Venipuncture / Unknown 09/23/2024 12:33 PM EDT 09/23/2024 12:36 PM EDT us Estrada Petty MD LAB BLOOD ORDERABLES Final Resu lt [facility] [address] [place] [address], [place] [phone] * ECG 12 lead - Procedural (No Charge) (09/23/2024 12:16 PM EDT) Ventricular Rate ECG 84 BPM GEMUSE Atrial Rate 84 BPM GEMUSE P-R Interval 144 ms GEMUSE QRS Duration 66 ms GEMUSE Q-T Interval 366 ms GEMUSE QTc 432 ms GEMUSE P Wave [place] 19 degrees GEMUSE T [place] 13 degrees GEMUSE ECG Interpretation Normal sinus rhythm Possible Left atrial enlargement Left ventricular hypertrophy Abnormal ECG No previous ECGs available Confirmed by Chata Man ([id number]) on 09/28/2024 12:27:13 PM GEMUSE 09/23/2024 12:1 6 PM EDT 09/28/2024 12:27 PM EDT us Estrada Petty MD ECG ORDERABLES Final Result GEMUSE * POCT Glucose, blood (09/23/2024 12:15 PM EDT) [facility] Glucose POCT 98 70 - 199 mg/dL 09/23/2024 12:15 PM EDT [facility] Comment: Glucose Reference Range: Normal fasting 70 mg/dL - 99 mg/dL Non-fasting 70 mg/dL - 199 mg/dL Blood Capillary blood specimen / Unknown 09/23/2024 12:15 PM EDT 09/23/2024 12:17 PM EDT us Generic Provider Poct LAB POINT OF CARE TEST DOCKED DEVICE UNSOLICITED RESULTS Final Result Performing Organization Address City/[facility] Co de Phone Number [facility] [address] [place] [address], [place] [phone] from Last 3 Months Insurance [facility] MEDICARE [employer] MEDICARE Care Teams Refuse Collector Supervisor Relationship Specialty Start Date End Date Ubaldo Kevin MD [address] [place] [address] PCP - General 12/08/22
--- OUTSIDE RECORDS SUMMARY | 2024-11-13 06:27 | XMS_ITS | Encounter Summary ---
Author Organization [facility] Address [address] [place] [address] Care Team Providers Care Quantitative Developer Name Role Phone Anamika [place] ND Unavailable [phone] Ubaldo Kevin MD Primary Care Provider [phone] Reason for Referral * Outpatient Surgery (Routine) - Closed Specialty Diagnoses / Procedures Referred By Rodrick arroyo Referred To Contact Orthopedic Surgery Diagnoses Sacroiliitis, not elsewhere classified Poncho [place] MD [address] [place] [address] Phone: tel: fax: Referral ID Status Reason Start Date Expiration Date Visits Re quested Visits Authorized [id number] Closed 06/28/2023 06/28/2024 1 1 Question Answer Primary Procedure: [id number] - FLUOR SAC INJ Additional Procedure(s): None Procedure: BILATERAL SACROILIAC JOINT INJECTION Surgery Date 07/11/2023 Performing Location: [facility] Duration (Mins): 30 Laterality: Bilateral Anesthesia: LOCAL Workers Comp? No Encounter Details Date Type Department Care Team (Late st Contact Info) Description 06/28/2023 [facility] Surg Order [facility] [address] [phone] Poncho [place] MD [address] [place] [address] Sacroiliitis, not elsewhere classified (HCC) (Primary Dx) Social History Tobacco Use Types Packs/Day Years [...] as of this encounter Plan of Treatment Scheduled Referrals Name Type Priority Associated Diagnoses Order Schedule BILATERAL SACROILIAC JOINT INJECTION Outpatient Referral Routine Sacroiliitis, not elsewhere classified (HCC) Ordered: 06/28/2023 documented as of this encounter Visit Diagnoses Diagnosis Sacroiliitis, not elsewhere classified- Primary documented in this encounter Care Teams Quantitative Developer Relationship Specialty Start Date End Date Anamika [place] ND PCP - Allergy Naturopathic Medicine 05/26/18 Ubaldo Kevin MD [address] [address] PCP - General Internal Medicine 05/26/18 documented as of this encounter
--- OUTSIDE RECORDS SUMMARY | 2024-11-13 06:27 | XMS_ITS | Encounter Summary ---
Author Organization [facility] Address [address] [place] [address] Care Team Providers Care Kiln Stacker Name Role Phone Anamika [place] ND Unavailable [phone] Ubaldo Kevin MD Primary Care Provider [phone] Encounter Details Date Type Department Care Team (Late st Contact Info) Description 07/11/2023 Scanned Document [facility] [address] [phone] Poncho [place] MD [address] [place] [address] [address] [place] [address] Social History Tobacco Use Types Packs/Day Years [...] on filedocumented in this encounter Care Teams Kiln Stacker Relationship Specialty Start Date End Date Anamika [place] ND PCP - Allergy Naturopathic Medicine 05/26/18 Ubaldo Kevin MD [address] [place] [address] PCP - General Internal Medicine 05/26/18 documented as of this encounter
--- OUTSIDE RECORDS SUMMARY | 2024-11-13 06:27 | XMS_ITS | Encounter Summary ---
Author Organization [facility] Address [address] [place] [address] Care Team Providers Care Chro Name Role Phone Anamika [place] KATHARINA Unavailable [phone] Ubaldo Kevin MD Primary Care Provider [phone] Reason for Visit * Reason Comments Medication Refill Encounter Details Date Type Department Care Team (Late st Contact Info) Description 12/27/2018 [address]ill [facility] [address] [phone] Andrey Kevin MD [address] [place] [address] Gastroesophageal reflux disease, esophagitis presence not specified Social History Tobacco Use Types Packs/Day Years [...] AM EST documented as of this encounter Miscellaneous Notes * Telephone Encounter - Andrey Kevin MD - 12/28/2018 9:27 AM EDT Patient should try pepcid instead of ranitidine- she can do 20mg BID to start documented in this encounter Plan of Treatment Not on file documented as of this encounter Visit Diagnoses Diagnosis Gastroesophageal reflux disease, esophagitis presence not specified documented in this encounter Care Teams Chro Relationship Specialty Start Date End Date Anamika [place] ND PCP - Allergy Naturopathic Medicine 05/26/18 Ubaldo Kevin MD [address] [place] [address] PCP - General Internal Medicine 05/26/18 documented as of this encounter
--- OUTSIDE RECORDS SUMMARY | 2024-11-13 06:27 | XMS_ITS | Encounter Summary ---
Author Organization [facility] Address [address] [place] [address] Care Team Providers Care Machine Trimmer Name Role Phone Anamika [place] ND Unavailable [phone] Ubaldo Kevin MD Primary Care Provider [phone] Encounter Details Date Type Department Care Team (Late st Contact Info) Description 06/28/2023 [facility] Surg [facility] [address] [phone] Poncho [place] MD [address] [place] [address] Social History Tobacco Use Types Packs/Day Years [...] on filedocumented in this encounter Care Teams Machine Trimmer Relationship Specialty Start Date End Date Anamika [place] ND PCP - Allergy Naturopathic Medicine 05/26/18 Ubaldo Kevin MD [address] [place] [address] PCP - General Internal Medicine 05/26/18 documented as of this encounter
--- OUTSIDE RECORDS SUMMARY | 2024-11-13 06:27 | XMS_ITS | Encounter Summary ---
Author Organization [facility] Address [address] [place] [address] Care Team Providers Care Business Intelligence Etl Developer Name Role Phone Anamika [place] ND Unavailable [phone] Ubaldo Kevin MD Primary Care Provider [phone] Encounter Details Date Type Department Care Team (Late st Contact Info) Description 02/26/2021 Scanned Document [facility] [address] [phone] Andrey Kevin MD [address] [place] [address] [address] [place] [address] Social History Tobacco Use Types Packs/Day Years [...] on filedocumented in this encounter Care Teams Business Intelligence Etl Developer Relationship Specialty Start Date End Date Anamika [place] ND PCP - Allergy Naturopathic Medicine 05/26/18 Ubaldo Kevin MD [address] [place] [address] PCP - General Internal Medicine 05/26/18 documented as of this encounter
--- OUTSIDE RECORDS SUMMARY | 2024-11-13 06:27 | XMS_ITS | Encounter Summary ---
Author Organization [facility] Address [address] [place] [address] Care Team Providers Care Fuel Yard Operator Name Role Phone Anamika [place] ND Unavailable [phone] Ubaldo Kevin MD Primary Care Provider [phone] Encounter Details Date Type Department Care Team (Late st Contact Info) Description 03/01/2024 Telephone [facility] [address] [place] [address] Patricia Lacy MD [address] [facility] [address] [place], [place] [id number] Social History Tobacco Use Types Packs/Day Years Used Date Smoking Tobacco: Former Smokeless Tobacco: Never Alcohol Use Standard Drinks/Week Comments No 0 (1 standard drink = 0.6 oz pur e alcohol) OASIS D0700: Social Isolation Answer Da te Recorded Frequency of experiencing loneliness or isolatio n Never 10/20/2023 OASIS A1250: Transportation Answer Date Recorded Lack of Transportation (Medical) No 10/20/2023 Lack of Transportation (Non-Medical) No 10/20/2023 Patient Unable or Declines to Respond No 10/20/2023 Comments No Sex and Gender Information Value Date Recorded Sex Assigned at Female 02/11/2024 8:26 AM EST Legal Sex Female 3:14 PM EDT Gender Identity Female 04/06/2024 9:38 AM EST Sexual Orientation Heterosexual (straight) 04/06 9:38 AM EST documented as of this encounter Miscellaneous Notes * Telephone Encounter - Sherlyn Razo - 03/01/2024 9:28 AM EST Patient Called In regards to Her Continuing taking Eliquis Medication. She said It was Prescribed for 2wk only, and When she called [facility] to get Refill they wanted over $600 and she not sure what her next steps are. documented in this encounter Plan of Treatment Not on file documented as of this encounter Visit Diagnoses Not on filedocumented in this encounter Care Teams Fuel Yard Operator Relationship Specialty Start Date End Date Anamika [place] ND PCP - Allergy Naturopathic Medicine 05/26/18 Ubaldo Kevin MD [address] [address] PCP - General Internal Medicine 05/26/18 documented as of this encounter
--- OUTSIDE RECORDS SUMMARY | 2024-11-13 06:27 | XMS_ITS | Clinical Summary ---
Author Organization [facility] Address [address] [place] [address] Care Team Providers Care Actimize Architect Name Role Phone Ubaldo Kevin MD Unavailable [phone] Pcp, No MD Primary Care Provider Unavailabl [...] 2) 06/27/2023 05/02/2023 COVID-19 Vaccine (4 - 2024-2 6 season) 2024 04/15/2021, 06/23/2020, 06/02/2020 Influenza Vaccine (#1) 2024 HPV Vaccines Aged Out No longer eligi ble based on patient's age to complete this topic Hepatitis A Vaccines Aged Out No long er eligible based on patient's age to complete this topic Meningococcal Vaccine Aged Out No vero edenilson eligible based on patient's age to complete this topic Insurance MEDICARE Care Teams Actimize Architect Relationship Specialty Start Date End Date Ubaldo Kevin MD [address] [place] [address] PCP - Insurance Payer PCP 08/31/23 Taylor Marquez MD [address] [place] [address] PCP - General Internal Medicine 08/31/23
--- OUTSIDE RECORDS SUMMARY | 2024-11-13 06:27 | XMS_ITS | Encounter Summary ---
Author Organization [facility] Address [address] [place] [address] Care Team Providers Care Final Finisher Forging Dies Name Role Phone Andrey Kevin MD Primary Care Provider [phone] Raheem Allen MD Primary Care Provider [phone] Anamika [place] ND Unavailable [phone] Ubaldo Kevin MD Primary Care Provider [phone] Encounter Details Date Type Department Care Team (Late st Contact Info) Description 02/24/2015 Scanned Document [address] [facility] [address] [place] [phone] Provider, Generic Social History Tobacco Use [...] Procedure Name Priority Date/Time Associated Diagnosis Comments IMAGING GASTROINTESTINAL 02/24/2015 documented in this encounter Results * IMAGING GASTROINTESTINAL (02/24/2015) Anatomical Region Laterality Modality Other Narrative 05/28/2016 2:30 AM EDT Ordered by an unspecified provider. us Generic Provider IMG LEGACY PROCEDURES Final Res ult documented in this encounter Visit Diagnoses Not on filedocumented in this encounter Care Teams Final Finisher Forging Dies Relationship Specialty Start Date End Date Andrey Kevin MD PCP - General Gastroenterology 04/07/16 04/15/16 Raheem Allen MD [address] [place] [address] PCP - General Family Medicine 04/16/16 05/25/18 Anamika [place] ND [address] [place] [address] PCP - Allergy Naturopathic Medicine 05/26/18 Ubaldo Kevin MD [address] [address] PCP - General Internal Medicine 05/26/18 documented as of this encounter
--- OUTSIDE RECORDS SUMMARY | 2024-11-13 06:27 | XMS_ITS | Clinical Summary ---
Author Organization [facility] Address [address] [place] [address] Care Team Providers Care Thermo Processor Name Role Phone Anamika [place] ND Unavailable [phone] Ubaldo Kevin MD Primary Care Provider [phone] Allergies No known active allergies Medications metoPROLOL SUCCINATE (TOPROL-XL) 50 MG 24 hr tablet Take 50 mg by mouth daily. Active olmesartan (BENICAR) 20 MG tablet Take 20 mg by mouth daily. 4 Active OMEprazole (PriLOSEC) 40 MG capsuleIndicati ons:Gastroesoph ageal reflux disease TAKE 1 CAPSULE BY MOUTH TWICE DAILY BEFORE MEALS 180 capsule 2 4 Active cholecalciferol (VITAMIN D3) 1000 units tablet Take by mouth. 09/14/19 24 Discontinu ed(Patient /Family Refused) Probiotic Product (PROBIOTIC ADVANCED) Cap Take by mouth. Digest Gold 09/14/19 Discontinu ed(Patient /Family Refused) Multiple Vitamin (MULTI-VITAMIN DAILY PO) Take by mouth. She take hemaplex 09/14/19 Discontinu ed(Patient /Family Refused) Coenzyme Q10 (CO Q 10 PO) Take by mouth. 09/14/19 Discontinu ed(Patient /Family Refused) lisinopril (PRINIVIL,ZeSTR IL) 30 MG tablet Take 30 mg by mouth daily. 09/19/19 24 Discontinu ed(Side effects) budesonide-form oterol (SYMBICORT) 80-4.5 MCG/ACT inhaler Inhale 2 puffs 2 (two) times a day. 10/20/19 24 Discontinu ed(Patient /Family Refused) Active Problems Problem Noted Date Diagnosed Date Sacroiliitis, not elsewhere classified 4 Gastroesophageal reflux disease 05/26/2018 Assessment & Plan (03/12/2022 10:03 AM EST): Controlled with omeprazole 40mg bid , continue this. Avoid/limit tobacco, alcohol, chocolate, peppermint, caffeine, greasy foods, spicy foods, and acidic foods such as citrus and tomato. Eat smaller, more frequent meals, and do not eat within 2 hours of bedtime. If you have night-time symptoms, elevate the head of the bed 6 to 12 inches. Handout provided. Follow clinically. Assessment & Plan (06/18/2019 8:57 AM EDT): Prilosec BID works best but we have not had luck with insurance approval PPI/H2B providers moderate relief while single dose PPI does not work We planned repeat EGD in 2018 but she could not afford it Plan: 1. Resend rx for prilosec 40 BID and do insurance appeal if necessary 2. She is willing to reschedule EGD after Covid19 pandemic settles down 3. Will plan to have her meet with me in 3 months in the office to discuss EGD rescheduling. Assessment & Plan (05/26/2018 10:09 AM EDT): Reasonably well controlled on PPI 40mg BID. I informed the patient that PPI's have been associated with various potential side effects incuding bone health dysfunction, increased risk of infections, decreased levels of magnesium and vitamin B12, Alzheimer's disease, and malignancy. While studies are currently limited in documenting clear links between PPIs and all of these conditions, I stressed to the patient that it is always my goal to limit their terminal computer operator use. While on PPIs, the patient should take calcium, Vitamin D and daily multivitamins. At this point, going to try to taper down to PPI in AM and H2 freda in PM. Depending on EGD findings, will attempt to taper her further off PPI. Esophageal ulcer without bleeding 05/26/2018 Assessment & Plan (12/03/2020 1:12 PM EDT): She absolutely needs repeat EGD to make sure that underlying ulcerated mucosa did not develop into Goode's esophagus. I told her today how concerned I am about this and how important it is for her to know if she has Goode's esophagus even if she is asymptomatic on PPI 40 BID. At last visit in 05/2019 she said she preferred to wait until after Covid pandemic. Today she says she will call us after she returns from her vacation to schedule the EGD. The indications, alternatives and the upper endoscopy procedure were thoroughly explained. There is no contraindication to upper endoscopy. All questions were answered. The potential risks including bleeding, infection, and perforation were also explained. Assessment & Plan (06/18/2019 8:57 AM EDT): Needs repeat EGD to make sure that underlying ulcerated mucosa did not develop into Goode's esophagus. The indications, alternatives and the upper endoscopy procedure were thoroughly explained. There is no contraindication to upper endoscopy. All questions were answered. The potential risks including bleeding, infection, and perforation were also explained. Assessment & Plan (05/26/2018 10:09 AM EDT): Needs repeat EGD to make sure that underlying ulcerated mucosa did not develop into Goode's esophagus. The indications, alternatives and the upper endoscopy procedure were thoroughly explained. There is no contraindication to upper endoscopy. All questions were answered. The potential risks including bleeding, infection, and perforation were also explained. Colon cancer screening 05/26/2018 Assessment & Plan (03/12/2022 10:36 AM EST): Pt declines colonoscopy again today with me. She says she had screening stool study with PCP and was negative. She continues to decline the colonoscopy given her friends unfortunate experience. This is despite her understanding the risks/benefits of a colonoscopy. The indications, prep, alternatives and the procedure were thoroughly explained. There is no contraindication to colonoscopy. The potential risks including bleeding, infection, and perforation were also explained. All questions were answered and the patient verbalized understanding of the risks and benefits. She is fully aware of the risks of missing colon cancer by not doing any CRC screening. Assessment & Plan (12/03/2020 1:10 PM EDT): We have extensively discussed screening colonoscopy as well as stool tests such as FIT and cologuard. She continues to decline the colonoscopy given her friends unfortunate experience. This is despite her understanding the risks/benefits of a colonoscopy. The indications, prep, alternatives and the procedure were thoroughly explained. There is no contraindication to colonoscopy. The potential risks including bleeding, infection, and perforation were also explained. All questions were answered and the patient verbalized understanding of the risks and benefits. She is fully aware of the risks of missing colon cancer by not doing any CRC screening. Assessment & Plan (06/18/2019 8:58 AM EDT): Today we discussed screening colonoscopy as well as stool tests such as FIT and cologuard. She continues to decline the colonoscopy given her friends unfortunate experience. This is despite her understanding the risks/benefits of a colonoscopy. The indications, prep, alternatives and the procedure were thoroughly explained. There is no contraindication to colonoscopy. The potential risks including bleeding, infection, and perforation were also explained. All questions were answered and the patient verbalized understanding of the risks and benefits. I then suggested that she should do annual stool FIT tests and that I can order this easily through quest but if it is positive, we will want to do a colonoscopy. She wishes to now discuss this further in our office visit in 3 months. Assessment & Plan (05/26/2018 10:11 AM EDT): Today we discussed screening colonoscopy as well as stool tests such as FIT and cologuard. She continues to decline the colonoscopy given her friends unfortunate experience. This is despite her understanding the risks/benefits of a colonoscopy. The indications, prep, alternatives and the procedure were thoroughly explained. There is no contraindication to colonoscopy. The potential risks including bleeding, infection, and perforation were also explained. All questions were answered and the patient verbalized understanding of the risks and benefits. I then suggested that she should do annual stool FIT tests and that I can order this easily through quest but if it is positive, we will want to do a colonoscopy. She wishes to think this over at this point. Family History Medical History Relation Name Comments No Known Problems Father No Known Problems Mother Relation Name Status Comments Father Mother Social History Tobacco Use Types Packs/Day [...] Orientation Heterosexual (straight) 04/06 9:38 AM EST Last Filed Vital Signs Vital Sign Reading Time Taken Comments Blood Pressure 140/68 03/02/2024 9:49 AM EST Pulse 88 03/02/2024 9:49 AM EST Temperature 37.2 C (98.9 F) 10/20/2023 3:10 PM EDT Respiratory Rate 19 10/20/2023 3:10 PM EDT Oxygen Saturation 97% 03/02/2024 9:49 AM EST Inhaled Oxygen Concentration - - Weight 106 kg (234 lb) 03/02/2024 9:49 AM EST Height 157.5 cm (5' 2 ) 06/28/2023 10:08 AM EDT Body Mass Index 42.8 06/28/2023 10:08 AM EDT Plan of Treatment Health Maintenance Due Date Last Done Comments Hepatitis C Virus Screening 1955 DTaP/Tdap/Td Vaccines (1 - Tdap) 1973 Mammogram 1994 Colonoscopy 12/05/1999 Pneumococcal Vaccines 50+ (1 of 1 - PCV) 2004 Zoster (Shingles) Vaccine (1 of 2) 2004 RSV Vaccine 60 years and older and Patients (1 - Risk 60-74 years 1-dose series) 2014 DXA Bone Density (Females,Ages 65 and older) 12/05/2019 Influenza Vaccine 09/28/2024 COVID-19 Vaccine (2024-2 6 season) 2024 04/15/2021, 06/23/2020, 06/02/2020 Advance Care Planning Completed 06/28/2023 Hepatitis B Vaccines Aged Out No long er eligible based on patient's age to complete this topic Insurance Member Subscriber Plan / Payer (Ef fective 2020-Present) Name:Deb Dunham Relation to Subscriber:Self Name:Deb Dunham Payer ID:[id number] (NAIC) Type:Not on file Address: [place] [id number] [facility] MEDICARE Member Subscriber Plan / Payer (Ef fective 2020-Present) Name:Deb Dunham Relation to Subscriber:Self Name:Deb Dunham Payer ID:[id number] (NAIC) Type:Not on file Address: [place] [id number] [facility] MEDICARE MEDICARE PART A & B [facility] MEDICARE Advance Directives Documents on File Type Date Recorded Patient Manager Employment Expl anation Advance Directive-Scan 06/28/2023 CHECK OUT Advance Directive-Scan 06/28/2023 MRI R EPORT-VTC Care Teams Thermo Processor Relationship Specialty Start Date End Date Anamika [place] ND PCP - Allergy Naturopathic Medicine 05/26/18 Ubaldo Kevin MD [address] [place] [address] PCP - General Internal Medicine 05/26/18
[2024-11-13] MEDS: Lactated Ringers 1,000 ML 100 ML IVCONT (06:31)
--- NOTE | 2024-11-13 07:00 | MHC.SHP ---
Pre-Procedural Eval Section A - 24 Hr Update-Section A only Date of Service: 11/13/24 The patient is an INPATIENT: No Changes since office visit: No Cold of Flu in the past 2 weeks, No New Medical Problems, No Changes in Medication and No Patient answered all questions The patient has been examined within 24 hours of the surgical procedure. The History & Physical has been completed within 30 days and I have reviewed it.: No Section B - Complete if H&P > 30 days Chief Complaint: s/p L4-5 OLIF with possible extension to L3-4 Allergies: Allergies Allergy/AdvReac Type Severity Reaction Status Date / Time No Known Allergies Allergy Verified 11/13/24 06:13 Review of Systems Sugical H&P ROS: Negative: Constitution, Cardiovascular, Respiratory, Neurological, Psychiatric, Hem-Onc, Allergic/Immunologic, Gastrointestinal, Genitourinary, Musculoskeletal, Integumentary, Endocrine and Eyes/Ears/Nose/Throat Exam Surgical H&P Exam: Normal: HEENT, Normal: Heart, Normal: Lungs, Normal: Extremities, Normal: Abdomen, Normal: Skin and Normal: Neurological (awake, alert,oriented x 3 ) Plan Diagnosis/Plan: Unchanged L3-5 Oblique lumbar interbody fusion Time Spent With Patient Time: Total time managing care of this patient today _5___ minutes.
--- NOTE | 2024-11-13 07:22 | PHA.MEDREC ---
Pharmacy Consult ? Medication Reconciliation Pharmacy has completed the medication reconciliation. Reviewed med rec done by nursing
--- NOTE | 2024-11-13 09:38 | P.OP_ITS ---
Operative Note Operative Note Date of Service: 11/13/24 Narrative: Preop Diagnosis: 1.) L4-5 lumbar spondylolisthesis 2.) Neurogenic claudication Procedure: 1) L4-5 discectomy, arthrodesis and implantation cage through an anterolateral, retroperitoneal approach 2) L4-5 posterior instrumented fusion 3) allograft 4) Injection of 10 cc of Exparel at the transverse process for a muscular erector spinae block and additional Exparel in paravertebral tissue for postop management Consent Informed Consent was obtained for this operation. I have explained the nature, purpose and benefits of the operation. I have discussed the risks and benefit of the operation including possible complications or adverse events with patient/family. Alternative(s) were discussed with the patient with their relative benefits and risks as well as the consequences of not accepting the operation were included in obtaining consent. Surgeon: ANNA VYAS MD, PHD Procedure Assisted By: sourav Gomez Description of Procedure This 68-year-old female suffering from back pain with neurogenic claudication symptoms. Imaging reviews a lumbar degenerative scoliosis with the apex at L2- L3, lumbar spondylolisthesis L4-5 and central spinal stenosis. The patient was offered an oblique lumbar interbody fusion L4-5. I told the patient that correcting the scoliosis would be going to at least L2-3 and I thought that would not be appropriate at this stage. We are only going to treat the symp tomatic level. The procedure and complications were explained. The patient was consented. The patient was brought to the operating room and endotracheally intubated. The patient was turned in a lateral position with the left side up. Prep and drape was done followed by timeout. A small incision was made in the left lower abdominal quadrant. The muscle fascia was opened after which the 3 muscle layer was split to enter the retroperitoneal space. Dilators were docked in the anterior one third of the L4-5 disc space followed by a retractor. The retractor was opened. The L4-5 disc space was exposed. An annulotomy was done after which an elevator Cuevas was used to release the disc material from its endplates and to perforate the contralateral side. A partial discectomy was done. An a mm and 10 mm height trial implant was inserted. The discectomy was completed. The endplates were prepared. An 10 x 45 mm with 6 degree lordosis 4 web cage filled with allograft was inserted into the disc space under fluoroscopic guidance. This resulted in correction of the lumbar spondylolisthesis and synagogue of the disc height. The retractor was removed. Hemostasis was done. The incision was closed in 2 layers. Steri-Strips used to approximate incision. An OpSite with Tegaderm was used to cover the incision. This marked first part of the procedure. The patient was turned prone on the Angelo spine table. 2C arms were installed for fluoroscopy. Prep and drape was done followed by a second timeout. Injection of 10 cc of Exparel at the bilateral L4 transverse processi for a muscular erector spinae block. Two paramedian incisions were made lateral from the L4 and L5 pedicles The muscle fascia was opened after which the muscle layer was split bluntly to expose the posterolateral gutter. The following steps were taken. A pediguard tap was used to create a transpedicular trajectory into the vertebral body. A K wire was placed. A specially designed instrument was advanced over the K wire to decorticate the posterolateral gutter in preparation for the posterolateral fusion. A pedicle screw was advanced over the K wire and the K wire was removed. The steps were done for the bilateral L4 and L5 pedicles. A total of 4 screws were placed with a diameter of 6.5 x 45 mm. Pedicle screws were connected with 40 mm bhavani bilaterally and locked down with locking caps. The extension towers were removed. The posterolateral gutter was filled with allograft to complete the posterolateral L4-5 fusion Hemostasis was done and the incision was closed in 2 layers. Steri-Strips were used to approximate the incision. An OpSite with tegaderm was used to cover the incision. All sponge and needle counts were correct. Patient was extubated and transferred in stable is to recovery room. Anesthesia: General Estimated Blood Loss (ml): 50 mL Duration of Surgery: 90 minutes Complications: None Postoperative Plan: Admit to inpatient for clinical observation
--- NOTE | 2024-11-13 14:43 | PC.NURSE ---
Addendum entered by Nohemy Jack RN 11/13/24 16:31: 1630 pts temp 97.9 oral, third consecutive normal temp. Per SALOME Castro okay to dc slim da silva. Original Note: Pt arrived to unit at approximately 1215, at this time pt AOx4 neuro assessment intact. temp noted to be 94.6 orally at 1251, pt refused rectal temp, axillary temp attempted with same result. SALOME Castro made aware via [employer], pt placed on bear hugger. last temp 94.9 oral at 1426, pt otherwise asymptomatic. Pt was also able to stand pivot to commode 2x
[2024-11-14] MEDS: oxyCODONE HCl Immed Release 5 MG TABLET PO ×2 (02:15→06:23)
[2024-11-14 03:00] VITALS: RESP 16
[2024-11-14 03:31] VITALS: BP 146/70; PULSE 64; RESP 16; TEMP 36; O2SAT 94
--- NOTE | 2024-11-14 07:44 | PM.DS ---
DS: Providers Provider Date of Service: 11/14/24 Date of admission: 11/13/24 06:11 Date of discharge: 11/14/24 Primary care physician: Ubaldo Kevin MD DS: Summary Time Attestation Discharge Coordination Time (in mins): 12 Quality: Safe Use of Opioids Does Pt have an Active Cancer Diagnosis on the Problem List?: No Quality: Stroke Does the patient have a stroke diagnosis?: No Physical Exam Vital Signs: Vital Signs: Last Vital Signs Temp 96.8 F 11/14/24 03:31 Pulse 64 11/14/24 03:31 Resp 16 11/14/24 03:31 BP 146/70 H 11/14/24 03:31 Pulse Ox 94 11/14/24 03:31 O2 Del Method Room Air 11/14/24 03:31 O2 Flow Rate 8 11/13/24 10:20 BMI result Body Mass Index 45.6 Discharge Plan Discharge Anticipated Discharge Date/Time: 11/14/24 07:44 Patient Disposition: Home Health Service Discharge Diagnosis: s/p L4-5 OLIF Referrals: Ubaldo Kevin MD [Primary Care Provider, Internal Medicine] - 1 Week Discharge Medications: New oxycodone 5 mg tablet See Rx Instructions .ROUTE .COMPLEX PRN (Reason: pain) Qty: 30 0RF Rx Instructions: Take 1-2 tablets by mouth every 4 hours; Partial Fill upon patient request. docusate sodium 100 mg capsule 100 mg PO BID PRN (Reason: constipation) Qty: 14 0RF Continued Voquezna 10 mg Tablet 10 mg PO BID multivitamin Tablet 1 tab PO DAILY turmeric 400 mg Capsule 400 mg PO DAILY Vitamin C Powder 1 g PO DAILY metoprolol succinate 50 mg tablet extended release 24 hr 50 mg PO DAILY Held omega 3-rzb-inx-fish oil [Fish Oil] 1,200 (144-216) mg Capsule 1 cap PO DAILY Hold Instructions: Resume on 11/28/24. Discharge Orders: Discharge Order (Routine); Ordered 11/14/24 Ordered By: Lauri Salas Diet: Advance to usual diet Activity on Discharge: As tolerated Stand Alone Forms: Patient Portal Discharge page Print Language: Guyanese Activity Restrictions/Additional Instructions: After your spinal surgery we ask you to observe the following restrictions/guidelines: Activity: It is normal to feel some discomfort as you increase your activity, but that will improve with time. We ask you avoid heavy lifting or acitivities that cause pain. As a general rule, 8lbs is a safe limit for lifting right after surgery. Walk as much as you feel comfortable but not to exhaustion. You will feel extra tired the first few days after surgery. Stay well hydrated. It is OK to walk up and down stairs You may return to driving when you are off narcotics (such as vicodin, oxycodone, dilaudid, etc), and you are back to normal functional capacity. If you have any concerns please check with office before driving. Return to work is specific to each patient and each surgery, so please speak with your doctor/PA at first follow up. Please bring paperwork such as FMLA at that time if you need it filled out. Medications: We recommend you take 1,000mg Tylenol every 8 hours for the first few weeks after surgery, if you do not have any liver issues and can tolerate this medication. Do not exceed 4,000mg daily. We will give you a short supply of narcotics after surgery (usually one weeks worth). If you need more please call the office but do not use more than prescribed. You will need to give our office 48 hours notice if you need narcotics refilled and we do not fill narcotics on weekends or evenings. If you are on a narcotic, it is a good idea to take a stool softener such as colace or senna to avoid constipation If you take blood thinner such as aspirin, Plavix, Coumadin, Effient, Eliquis etc for conditions such as Afib, DVT, Pulmonary embolus, coronary disease, stents etc please speak with your surgeon about specific details as to when you can resume these medications. You can resume NSAIDs on post op day 1 (eg: Motrin, Naproxen, etc). Follow up: Please call the office, , after surgery to arrange a 3 week follow up for wound check. Wound Care: You may remove your dressing on the first day after surgery. ?You may ?leave open to air. Please do not remove the steri strips underneath. they will fall off on their own in one week. IT IS NORMAL FOR THE WOUND TO OOZE OR BE BLOODY FOR A FEW DAYS AFTER SURGERY. ?IF THIS HAPPENS JUST PLACE NEW DRESSING OVER IT TO AVOID STAINING CLOTHES. You may shower on post op day # 1 We ask that you do not let the water soak the wound. If it does get wet, just towel dry lightly. Please do not scrub your incision or place any type of chemical/ointment on the wound. No tub baths, pools or jacuzzis for one month. If you have any leaking or redness from your wound, or fevers, please call the office. Care Plan Goals: Return to normal activity as tolerated Health Concerns: None Plan of Treatment: Follow-up in clinic in 2-3 weeks Assessment: POD: 1 Procedure: L4-5 OLIF Deb is a pleasant 68-year-old female who underwent L4-[address] Cuenca yesterday. She reports that overall her pain is very well controlled, and states she is not currently experiencing any pain. She is currently on a multimodal pain regimen. She has been up out of bed ambulating around her room into the bathroom. She is voiding normally. She is tolerating her current diet. She asked several questions regarding her surgery which the attending neurosurgeon Dr. Cuenca answered for her this morning. Afebrile, vital signs stable. The patient is spontaneously moving her lower extremities with no sensational deficits reported. Back and lateral dressings have some staining without signs of hematoma. No active sanguineous drainage. Area is dry. Plan: Patient meets criteria to be medically discharged home. He was seen at bedside with Dr. Cuenca. I will send in a prescription for oxycodone to the pharmacy here at [facility] alongside a stool softener. Lauri Cuenca MD,PhD [facility]
--- NOTE | 2024-11-14 07:49 | HO.NEURO.PN ---
Neurosurgery Operative Note Date of Service: 11/14/24 Narrative: POD: 1 Procedure: L4-5 OLIF Deb is a pleasant 68-year-old female who underwent L4-[address] Cuenca yesterday. She reports that overall her pain is very well controlled, and states she is not currently experiencing any pain. She is currently on a multimodal pain regimen. She has been up out of bed ambulating around her room into the bathroom. She is voiding normally. She is tolerating her current diet. She asked several questions regarding her surgery which the attending neurosurgeon Dr. Cuenca answered for her this morning. Afebrile, vital signs stable. The patient is spontaneously moving her lower extremities with no sensational deficits reported. Back and lateral dressings have some staining without signs of hematoma. No active sanguineous drainage. Area is dry. Plan: Patient meets criteria to be medically discharged home. He was seen at bedside with Dr. Cuenca. I will send in a prescription for oxycodone to the pharmacy here at [facility] alongside a stool softener. Lauri Cuenca MD,PhD [facility]
--- NOTE | 2024-11-14 07:49 | W.MHC.F2F ---
Service Date Service Date: 11/14/24 Encounter Date of encounter: 11/14/24 Reasons for Services Signs and symptoms assessed: s/p L4-5 OLIF Reason for physical therapy: home safety and mobility, gait/transfer training and ADL training Homebound: Leaving the home is medically contraindicated at this time without the asist of a device and/or another person due th the listed conditions above and below. Reason homebound: unsteady gait / fall risk, pain with ambulation and weakness related to hospital stay Certification: Based on the above findings, I certify that this patient is confined to the home and needs intermittent [facility] care, physical therapy and/or speech therapy, or continues to need occupational therapy. The patient is under my care, and I have initiated the establishment of the plan of care. The patient will be followed by a physician who will periodically review the plan of care. Time Spent With Patient Time: Total time managing care of this patient today __5__ minutes.
[2024-11-14 07:56] VITALS: BP 140/72; PULSE 82; RESP 16; TEMP 36.4; O2SAT 97
--- NOTE | 2024-11-14 08:04 | HO.POSTANES ---
Post Anesthesia Evaluation Post Anesthesia Evaluation Date of Service: 11/14/24 Vital Signs: Vital Signs Temp Pulse Resp BP Pulse Ox O2 Del Method 11/14/24 07:56 97.5 F 82 16 140/72 H 97 Room Air 11/14/24 03:31 96.8 F 64 16 146/70 H 94 Room Air 11/14/24 03:00 16 Anesthesia: General Mental Status: Awake Pain Control: Satisfactory Nausea/Vomiting: None Hydration: Adequate Anesthesia-Related Issues: No Anes. Related Issues
[2024-11-14] MEDS: Metoprolol Succinate ER 50 MG TAB.ER.24H PO (08:54)
--- NOTE | 2024-11-14 09:40 | MHC.CM.PN ---
IMM 11/14 PT LIVES WITH SPOUSE AND IS FUNCTIONALLY INDEPENDENT AT BASELINE. NO SERVICES OR DME. PT HAS COPY OF HCP AT HOME. PCP AMINATA PRAKASH DP: P.T. REC NO SKILLED P.T. AT THIS TIME. PT IS IN AGREEMENT WITH PLAN. PT HAS BEEN MEDICALLY CLEARED FOR DC HOME, NO SERVICES. PT'S BROTHER WILL TRANSPORT
== END 2024-11-14 09:58 | disposition home or self-care (01) | DRG 451 ==
LOC: HO.SSSA 06:25 → HO.S3 11:10
PROVIDERS: Admitting Provider Neurological Surgery; PCP Internal Medicine; Visit Provider Neurological Surgery
PROC: 0SG00A0 Fusion of Lumbar Vertebral Joint with Interbody Fusion Device, Anterior Approach, Anterior Column, Open Approach (ICD-10-PCS; principal; 2024-11-13 07:30)
DX: M48.062 Spinal stenosis, lumbar region with neurogenic claudication (principal); M43.16 Spondylolisthesis, lumbar region; Z79.899 Other long term (current) drug therapy
CPT/HCPCS: 86850; 86900; 86901; 97161; C1713; C1889; J0131; J0665; J0666; J0690; J1100; J1171; J1885; J2003; J2250; J2405; J2704; J3010; L8699

== ENCOUNTER → 2024-11-13 06:11 | Outpatient (BNV) | payer MEDICARE, SELFPAY | PROVIDERS: Admitting Provider Neurological Surgery; PCP Internal Medicine; Visit Provider Neurological Surgery | DX: M48.062 Spinal stenosis, lumbar region with neurogenic claudication (principal) | CPT/HCPCS: 20930; 22558; 22612; 22840; 22853 ==

== ENCOUNTER 2024-12-13 13:31 | Outpatient (REF) | payer MEDICARE, SELFPAY | END 2024-12-13 13:32 | disposition home or self-care (01) | LOC: HO.HOSX 13:31 | PROVIDERS: PCP Internal Medicine; Visit Provider Physician Assistant | DX: Z47.89 Encounter for other orthopedic aftercare (principal); M43.16 Spondylolisthesis, lumbar region | CPT/HCPCS: 99212 ==

== ENCOUNTER 2024-12-13 13:31 | Outpatient (AMB) | payer MEDICARE, SELFPAY ==
--- OUTSIDE RECORDS SUMMARY | 2023-12-30 13:25 | XMS_ITS | Encounter Summary ---
Author Organization [facility] Address [address] [place] [address] Care Team Providers Care Respiratory Technician Name Role Phone Ubaldo Kevin MD Primary Care Provider [phone] Encounter Details Date Type Department Care Team [...] 12:31 PM EDT Pamela Villar RN * [place] Suicide Severity Rating Scale (Screener/Recent Self-Report) Question Answer Date of Assessment Author 1. Wish to be (Past 1 Month) No 025 12:31 PM EDT Pamela Moran RN 2. Non-Specific Active Suici giana Thoughts (Past 1 Month) No 09/23/2024 12:31 PM EDT Iris Moran RN 6. Suicidal Behavior (Lifetime) No 12:31 PM EDT Pamlea Moran RN documented as of this encounter [...] on 12/30/2023 3:59 PM. Workstation Name - [id number] 1 Procedure Note Raheem Reyes MD - [...] MD on 12/30/2023 3:59 PM.Workstation Name - [id number] 1 Brannon [facility] IMG FLUOROSCOPY PROCEDURES Final Result documented in this encounter Visit Diagnoses Diagnosis Pain in right hip documented in this encounter Care Teams Respiratory Technician Relationship Specialty Start Date End Date Ubaldo Kevin MD [address] [address] PCP - General 12/08/22 documented as of this encounter
--- NOTE | 2024-12-13 13:35 | A.SPINEOV_ITS ---
Intake Visit Reasons: 1st post op Intake Note: Ms. Dunham is here today for her 1st post op. Public Relations Analyst Required: No Allergies No Known Allergies Allergy (Verified 11/13/24 06:13) Assessment & Plan Assessment & Plan (1) Spondylolisthesis, lumbar region: Code(s): M43.16 - Spondylolisthesis, lumbar region Category: Medical Plan Mrs Dunham is about 1 month out from her L4-5 oblique lumbar interbody fusion. She has been dealing with an intense pain on the right lower back out laterally toward the iliac crest. It is particularly bad when she is standing for more than 5 or 10 minutes, it forces her to sit down. No radicular symptoms down the legs. Tingling numbness etc.. Her wounds have all healed up well. I went back and looked at her intraoperative x-rays which showed excellent correction of her spondylolisthesis and improvement in her scoliotic curvature. I think what she is dealing with is just postoperative pain related to correction of her scoliosis and her spondylolisthesis, which can often times cause some strain on other areas. This localizes itself in an area which could be reflective of a gluteal tendinopathy or possibly SI joint irritation. Right now I think we should just continue to wait this out and I expect it will get better with time. I will get a set of x-rays on her at her next visit. If it gets worse, we can see her sooner if need be. Ankur Cuenca MD, PhD [facility] Orders: Orders XR lumbar spine 4V min Today M43.16 - Spondylolisthesis, lumbar region Coding Level of Care Code Global (53632) Diagnoses Spondylolisthesis, lumbar region M43.16
--- OUTSIDE RECORDS SUMMARY | 2024-12-13 17:08 | XMS_ITS | Encounter Summary ---
Author Organization [facility] Address [address] [place] [id number] Care Team Providers Care Package Line Operator Name Role Phone Anamika Milton ND Unavailable [phone] Ubaldo Kevin MD Primary Care Provider [phone] Encounter Details Date Type Department Care Team (Late st Contact Info) Description 07/11/2023 Scanned Document [facility] [address] [phone] Poncho Bronson MD [address] [place] [address] [address] [place] [address] Social History Tobacco Use Types Packs/Day Years [...] on filedocumented in this encounter Care Teams Package Line Operator Relationship Specialty Start Date End Date Anamika Milton ND PCP - Allergy Naturopathic Medicine 05/26/18 Ubaldo Kevin MD [address] [place] [address] PCP - General Internal Medicine 05/26/18 documented as of this encounter
--- OUTSIDE RECORDS SUMMARY | 2024-12-13 17:08 | XMS_ITS | Encounter Summary ---
Author Organization [facility] Address [address] [place] [address] Care Team Providers Care Merchandise Flow Manager Name Role Phone Anamika Milton ND Unavailable [phone] Ubaldo Kevin MD Primary Care Provider [phone] Reason for Referral * Outpatient Surgery (Routine) - Closed Specialty Diagnoses / Procedures Referred By Rodrick arroyo Referred To Contact [facility] Diagnoses Sacroiliitis, not elsewhere classified Poncho Bronson MD [address] [place] [address] Phone: tel: fax: Referral ID Status Reason Start Date Expiration Date Visits Re quested Visits Authorized [id number] Closed 06/28/2023 06/28/2024 1 1 Question Answer Primary Procedure: [id number] - FLUOR SAC INJ Additional Procedure(s): None Procedure: BILATERAL SACROILIAC JOINT INJECTION Surgery Date 07/11/2023 Performing Location: [facility] Duration (Mins): 30 Laterality: Bilateral Anesthesia: LOCAL Workers Comp? No Encounter Details Date Type Department Care Team (Late st Contact Info) Description 06/28/2023 [facility] Surg Order [facility] [address] [phone] Poncho Bronson MD [address] [place] [id number] Sacroiliitis, not elsewhere classified (HCC) (Primary Dx) [...] Primary documented in this encounter Care Teams Merchandise Flow Manager Relationship Specialty Start Date End Date Anamika Milton ND PCP - Allergy Naturopathic Medicine 05/26/18 Ubaldo Kevin MD [address] [address] PCP - General Internal Medicine 05/26/18 documented as of this encounter
--- OUTSIDE RECORDS SUMMARY | 2024-12-13 17:08 | XMS_ITS | Encounter Summary ---
Author Organization [facility] Address [address] [place] [address] Care Team Providers Care Factorer Name Role Phone Anamika Milton ND Unavailable [phone] Ubaldo Kevin MD Primary Care Provider [phone] Encounter Details Date Type Department Care Team (Late st Contact Info) Description 06/28/2023 OA Surg Order [facility] [address] [phone] Poncho Bronson MD [address] [place] [address] Social History Tobacco Use Types Packs/Day Years [...] on filedocumented in this encounter Care Teams Factorer Relationship Specialty Start Date End Date Anamika Milton ND PCP - Allergy Naturopathic Medicine 05/26/18 Ubaldo Kevin MD [address] [place] [address] PCP - General Internal Medicine 05/26/18 documented as of this encounter
--- OUTSIDE RECORDS SUMMARY | 2024-12-13 17:09 | XMS_ITS | Encounter Summary ---
Author Organization [facility] Address [address] [place] [address] Care Team Providers Care Public Health Analyst Name Role Phone Anamika Milton KATHARINA Unavailable [phone] Ubaldo Kevin MD Primary Care Provider [phone] Reason for Visit * Reason Comments Medication Refill Encounter Details Date Type Department Care Team (Late st Contact Info) Description 12/27/2018 Refill [facility] [address] [phone] Andrey Kevin MD [address] [place] [address] Gastroesophageal reflux disease, esophagitis presence not specified [...] specified documented in this encounter Care Teams Public Health Analyst Relationship Specialty Start Date End Date Anamika Milton ND PCP - Allergy Naturopathic Medicine 05/26/18 Ubaldo Kevin MD [address] [place] [address] PCP - General Internal Medicine 05/26/18 documented as of this encounter
--- OUTSIDE RECORDS SUMMARY | 2024-12-13 17:09 | XMS_ITS | Data Portability ---
Author Organization [place] [facility] Address [address] [place] [address] Care Team Providers Care Claims Analyst Name Role Phone AMINATA PRAKASH Primary Care Provider AMINATA PRAKASH Referring Provider [phone] FREDIS BAER OTHER [phone] Assessment Encounter Date Assessment Date Assessment LastModified by Organization Details LastModified Time 01/20/2024 01/20/2024 IMPRESSION: 68F prior ACL recon several years prior now with knee degenerative changes PLAN: I discussed the history, clinical examination, and imaging findings with the patient in detail today. The patient has degenerative arthritis of their knee. Treatment options include the followin. Living with the symptoms 2. Nonoperative management 3. Surgerical intervention I have told them that ultimately for a person with early degenerative changes about the knee, like they have (the cartilage wear and tear), that the mainstay of initial treatment are things like time, rest, relative rest, activity modification, physical therapy or home strengthening (specifically quadriceps, hamstrings, and core musculature) programs, weight loss with or without a cut filer/medical educator assistance, foundation coordinator bracing if desired/tolerated, prescription strength oral anti-inflammatories if they can be safely tolerated (may need to discuss with primary care provider), Tylenol, and intermittent use of corticosteroid injections and consideration of viscosupplementation injections. Lastly, I do not feel that this extent of knee arthritis, clinical symptoms, or disability is advanced enough to warrant consideration for arthroplasty. We initially discussed the possibility of doing surgery; however, after a longer discussion and through shared decision making we ultimately elected to proceed with a renewed focus on maximizing non-operative symptom management, to include: 1. Activity modification, relative rest, time. Maximize the things they can do, minimize the things that aggravate symptoms. 2. Quadriceps, hamstrings, and core muscle strengthening. The patient would like to do this under their own discretion, and politely declined a PT prescription today. 3. Weight loss. The patient would also like to do this under their own direction, and politely declined a Terminal Operator/Educational Diagnostician referral today. 4. Over the counter Tylenol as needed for pain. 5. Judicious use of llni-cdb-ncpaubg anti-inflammatory medication, they will discuss this with their primary care provider 6. Discussed foundation coordinator bracing, but the patient politely declined today. The patient will call if they change their mind and would like a prescription for a knee foundation coordinator brace. 7. Lastly, we discussed the risks, benefits, and alternatives to knee corticosteroid injection today. The patient elected to proceed and signed informed consent was obtained. Procedure note details below.Knee corticosteroid injections may be repeated every 3-4 months or so if so desired. 8. Return to clinic in 2 months with our hip and knee team At the conclusion of the office visit, the patient verbally acknowledged that I answered all of their questions satisfactorily. [email or web address] Not available 01/22/2024 09:19:37 02/07/2024 02/07/2024 HPI : T flakito you for the pleasure of requesting a consultation on this patient. Patient comes in complaining of left knee pain. She has been dealing with the left knee pain for this year. She had a cortisone injection 3 weeks ago which only brought a couple days of relief. Her symptoms are increasing. She has a history of ACL reconstruction about 18 years ago. This patient is experiencing left knee pain for a period lasting greater than the last three months, which is severe (VAS score greater than or equal to 6 on a 0-10 scale) in intensity and the restriction of function (appropriate for a patient of this age) are intolerable. The pain substantially limits activities of daily living. In particular, walking tolerance and ability to stair climb is reduced. Conservative management such as non-steroidal anti-inflammatory medications available by prescription, physician directed therapy, ice and/or heat and activity modification have been minimally effective or deemed insufficient by the patient for a period lasting greater than 3-6 months in duration. Assistive devices and external support were not deemed by the patient to be helpful in improving their function. The patient is unable to tolerate further conservative measures, including physical therapy, due to the severity of arthritis and level of pain. Review of systems is negative for rapidly progressive neurological disorder, chest pain, shortness of breath, fevers, chills, or any signs of active or persistent local or systemic infection. Physical Exam : Patient is well nourished, well-developed, in no acute distress, with appropriate mood and affect. The patient is oriented to time, place, and person. Respirations are even and unlabored. Gait evaluation does reveal a limp. There is no inguinal adenopathy. Examination of the contralateral knee shows normal range of motion, strength, no tenderness, and intact skin. The affected limb is well-perfused, without skin lesions, shows a grossly normal motor and sensory examination. Left knee motion is significantly reduced and does cause significant pain. The knee moves from 5-120 degrees. The knee is stable within that vfpeu-ch-osykdl to AP and ML stress. The alignment of the knee is valgus. Muscle strength is normal. Pedal pulses are palpable. Hip examination, including flexion and internal rotation, was negative in that groin pain was not produced. Assessment/Plan : The patient is an appropriate candidate for consideration of left total knee replacement. An extensive discussion was conducted of the natural history of the disease and the variety of surgical and non-surgical treatment options available to the patient. A risk/benefit analysis was discussed with the patient reviewing the advantages and disadvantages of surgical intervention at this time. A full explanation was given of the nature and the purpose of the procedure and anesthesia, its benefits, possible alternative methods of diagnosis of treatment, the risks involved, the possibility of complications, the foreseeable consequences of the procedure and the possible results of the non-treatment. No guarantee or assurance was made as to the results that may be obtained. Specifically, the risks were identified to include, but are not limited, to the following: Infection, phlebitis, pulmonary embolism, , paralysis, dislocation, pain, stiffness, instability, limp, weakness, breakage, leg-length inequality, uncontrolled bleeding, nerve injury, blood vessel injury, pressure sores, anesthetic risks, delayed healing of wound and bone, and wear and loosening. Additional risks of robotic knee replacement were discussed (if used) including but not limited to pin site infection, draining, longer incision, longer OR time, and fracture near the pin sites. Further discussion was undertaken with the patient about the details of surgical preparation, treatment and postoperative rehabilitation including medical clearance, autotransfusion, the hospital course and the postoperative rehabilitation involved. As a part of routine preoperative counseling, if the patient is a smoker, the patient recognizes the increased risk of complications in patients who utilize tobacco products. The patient has also been counseled regarding the elevated risk of surgical complications in patients with an elevated BMI. The patient demonstrates understanding of the increased risk in such patients. The patient was encouraged to participate in physical activity and diet modification under the direction of their primary care physician. We will plan on proceeding with left total knee arthroplasty using the Larry total knee replacement system. However, it is possible during the preoperative planning process or due to intraoperative findings that a different implant system may be utilized in order to optimize the patient's outcome. We had a discussion regarding implant and bearing options. We had a detailed discussion of the advantages and limitations of the specific implant designs, materials and bearing surfaces. All questions were answered to the patient's satisfaction, and the patient was asked to call the office with any further concerns. All in all, I feel that this patient is a good candidate for surgical reconstruction. An in-depth discussion of the risks and benefits of surgery as noted above were had with patient, including any reasonable alternatives and the risks and benefits of the alternatives. The patient was given time to understand and ask questions, and the surgical consent was signed and dated today. If surgery is >1 month from today, this discussion will be repeated on the day of surgery, prior to anesthesia administration. The patient is also aware that questions can be asked at any time before the surgical date to me or my team. Plan for left total knee replacement, robotic assisted, at [facility]. Not available 02/07/2024 14:08:57 05/07/2024 05/07/2024 HPI : Patient is doing well at 2 week follow up status post left total knee arthroplasty. They deny fever, chest pain and shortness of breath. They are compliant with anticoagulation protocol. She is compliant with Eliquis for DVT prophylaxis. She reports that she is making gradual progress. She did have a trip and near fall experience that caused an increase in discomfort but that has since settled down. She reports that she is making an effort to wean from the oxycodone. She has been doing stretching exercises. She has lots of worries but has not experienced any real problems. Physical Exam : Patient is well nourished, well- developed, in no acute distress, with appropriate mood and affect. The patient demonstrates good knee strength. The incision is clean and dry with no sign of infection. Negative calf tenderness and Alejandra's sign. Range of motion is from 0-90 degrees. Assessment/Plan : The patient is doing well status post knee arthroplasty. Continue 28 day course of anticoagulation therapy. The patient will do physical therapy and return for follow-up in 1 month for re-evaluation; sooner with any problems. This patient was seen and evaluated by Veena Stewart MS, PAInesC in indirect conjunction with documenting/supervisin irving Zaman MD. He agrees with history, physical examination, tests/diagnostic imaging, and treatment plan. [email or web address] Not available 05/07/2024 09:28:11 06/14/2024 06/14/2024 HPI : Patient is here for a 6 week follow-up from a left total knee replacement. She states that the left knee is the best joint in her body. She is having back pain and right knee pain. This was from preoperatively. Regarding her left knee she is working with physical therapy. She is not taking any pain medications. She is walking without assist device. She is happy with her progress so far. Physical Exam : Patient is well nourished, well- developed, in no acute distress, with appropriate mood and affect. The patient is AAOx3. The patient demonstrates good knee motion and strength. The incision is well healed. Range of motion of the left knee is 0 to 103 degrees. Assessment/Plan : The patient is functioning well 6 weeks from total knee arthroplasty. We discussed the importance of working on knee flexion. Continue physical therapy as needed. Return for follow-up in 2 months with x-rays at that time. We will get x-rays of her bilateral knees at that time. Not available 06/14/2024 08:48:23 08/16/2024 08/16/2024 HPI : Patient is here for 4-month follow-up from left total knee replacement. She is recovering well. She is walking without assist device. She really has 0 pain at baseline. She can have very mild aches. Overall she is very happy with her knee replacement. She states that is the best joint in her body. Overall, Serjio nguyen reports good pain relief in the knee and satisfactory christianity of function in terms of activities of daily living. Physical Exam : Patient is well nourished, well-developed, in no acute distress, with appropriate mood and affect. The patient is oriented to time, place, and person. Respirations are even and unlabored. There is no inguinal adenopathy. Examination of the contralateral knee shows normal range of motion, strength, mild medial joint line tenderness, and intact skin. The affected left limb is well-perfused, with well healed skin incision. The patient demonstrates good knee motion, stability, and strength. The knee moves from 0-120 degrees. The alignment of the knee is neutral. Muscle strength is normal. Pedal pulses are palpable. Hip examination, including flexion and internal rotation, was negative in that groin pain was not produced. Assessment/Plan : This patient is functioning well 4 month(s) after LEFT total knee arthroplasty. Continue knee conditioning exercises. Ybti-qrr-spknjea medications as needed. Ultimate failure may occur due to mechanical wear, loosening or breakage. Follow-up is recommended to assess for the possibility of failure. Plan for follow-up at 1 year from surgery with repeat x-rays of the left knee at that time. If the right knee is bothering her before then she is welcome to come in before then. Not available 08/16/2024 08:59:41 Plan of Treatment Reminders Order Date Submit Date Provider Last Modified By Organization Details Last Modified Time Details Appointments None recorded. Lab None recorded. Referral physical therapist referral 2023 024 [email or web address] Not available 4 08:17:08 Procedures None recorded. Surgeries total knee arthroplast y (SURG) 2023 025 [facility], [address] [place], [address], 5 09:25:41 Imaging XR, knee, 3 view 2024 025 [facility], [address], [address], [place], [address], 5 12:00:22 XR, knee, 4 or more view 2023 [email or web address] [facility], [address], [place], [address], 4 14:18:40 Medication Orders lidocaine (PF) 10 mg/mL (1 %) injection solution 2023 [id number], [address], [place], [id number], 5 09:04:23 Marcaine (PF) 0.5 % (5 mg/mL) injection solution 2023 [facility][id number], [address] [place], [place], [id number], 5 09:04:23 triamcinolo ne acetonide 40 mg/mL suspension for injection 2023 [facility][id number], [address] [place], [place], [id number], 5 09:04:23 Patient TargetsNo targets recorded. Patient Instructions Encounter Date Encounter Id Patient Instructions Last Modified By Organization Details Last Modified Time 01/20/2024 [id number] IMAGING: Three view radiographs of the LEFT knee (weightbearing AP, LATERAL, and Grafton views), obtained on 04-03-23 were reviewed by me, independent interpretation demonstrates normal bony mineralization. Findings: Medial and Lateral joint space narrowing, sclerosis of the knee and osteophytes arising from the knee.Prior evidence of ACL reconstruction. Moderate degenerative changes noted particularly in the lateral compartment.Valgus alignment. I the operating to review the images of an MRI of the left knee obtained on 12/31/2023. The radiologic impression and report was not available. Imaging demonstrates prior evidence of ACL reconstruction with screw fixation graft appears to be in place. Also evidence of prior posterior lateral meniscectomy. There are degenerative changes in the lateral compartment noted. Degenerative changes along the posterior horn of the medial meniscus. [email or web address] Not available 01/22/2024 09:17:40 02/07/2024 [id number] AP, lateral, Joyner, and patellar view radiographs of the left knee taken today demonstrate left knee degenerative joint disease with joint space narrowing, osteophyte formation, and subchondral sclerosis. There is iagr-wm-wclr articulation in the lateral compartment. There is evidence of prior ACL reconstruction with ACL screw. Not available 02/07/2024 14:07:28 05/07/2024 [id number] physical therapy * - Evaluate and treat as indicated to reduce pain and to improve strength, mobility, stability, range of motion, and function. Please teach a home exercise plan and incorporate PT into patient's exercise routine. 2-3 sessions weekly for 6-8 weeks. [email or web address] Not available 05/07/2024 09:28:06 08/16/2024 [id number] AP, lateral, and patellar radiographs of the left knee taken today demonstrate satisfactory position and alignment of components following left total knee replacement. Not available 08/16/2024 08:59:46 Reason for Referral Physical Therapist Referral for Pain of knee region Referring Physician: Ravi Vasquez, Orthopedic Surgery, Encounter Date: 01/20/2024 Results Created Date Observation Date Name Description Value Unit Range Abnormal Flag Note LastModifiedBy Organization Detail LastModifiedTime 12/30/19 24 12/30/2023 XR, shoul adelaida, 2 or more view No observ ation record ed. [email or web address] [facility] [address] , [place], [address], 01/02/2024 08:47:18 02/09/20 MRI, knee, w/o contr ast No observ ation record ed. [email or web address] Not Available 2023 11:10:52 04/02/19 25 04/02/2024 CT, knee, w/o contr ast No observ ation record ed. [facility] [address], [place], [address], 04/02/2024 15:57:15 Result Notes None recorded. Problems Name Problem SNOMED Code Status Onset Date Resolution Date Notes Provider Name and Address Organization Details Recorded Time Lumbar arthritis 818052982 Active [address], [place], [address] , [place] [facility] 3 12:40:15 Pain of right hip joint 3238931689795 02 Active [address], [place], [address] , [place] [facility] 3 14:14:17 Lumbar spondylosi s 960545775 Active [address] [facility], [place], [address] , [place] [facility] 3 16:11:42 Low back pain 452535880 Active [address], [place], [address] , [place] [facility] 3 16:11:43 Impingemen t syndrome of right shoulder region 4337223662147 02 Active [address], [place], [address] , [place] [facility] 4 09:34:39 Tendinitis of right rotator cuff 4367819287561 9104 Active [address], [place], [address] , [place] [facility] 4 09:34:46 Swelling of lower leg 517275290 Active [address], [place], [address] , [place] [facility] 4 08:59:31 Osteoarthr itis of left knee joint 1544553254772 09 Active [address], [place], [address] , [place] [facility] 4 09:02:53 Body mass index 40+ - severely obese 269356275 Active [address], [place], [address] , [place] [facility] 4 13:22:21 Pain of knee region 9484373436 Active [address], [place], [address] , [place] [facility] 4 15:47:26 Arthritis of knee 048749666 Active [address], [place], [address] , [place] [facility] 4 14:04:28 History of total knee arthroplas ty 6867754398969 Active 2024 VEENA STEWART PA-C [address], [place], [address] , [place] [facility] 5 09:26:53 Problem Notes None recorded. Procedures Surgical History Date Name Laterality Status Provider Name and Address Organization Details Recorded Time 04/24/19 25 TOTAL KNEE ARTHROPLASTY (SURG) completed Anamika Mckeon [place] [facility] 04/26/2024 09:25:48 01/20/20 24 AJR Knee Injection completed MD [address], [place], [address], [place] [facility] 01/21/2024 15:57:23 04/28/19 24 MARIAH Knee Injection completed LEA GUALLPA PA-C [address], [place], [address], [place] [facility] 04/28/2023 09:24:02 02/28/19 08 Knee Surgery completed Petra Nation [place] [facility] 12/02/2022 13:46:05 Shoulder Surgery completed Petra Nation [place] [facility] 12/02/2022 13:45:58 Imaging Results None recorded. Procedure Notes None recorded. Medical Equipment None Reported. Allergies No known drug allergies Medications Name Sig Start Date Stop Date Status Note LastModified by Organization Details LastModified Time prednisone 10 mg tablet USE DIRECTED BY PROVIDER. SEE DIRECTION S ATTACHED active Not Available Not Available No t Available azithromyci n 250 mg tablet TAKE 1 TABLET BY MOUTH EVERY DAY FOR 10 DAYS 12/02 completed Not Available Not Available Not Available benzonatate 200 mg capsule 01/19 completed Not Available Not Available Not Available metoprolol succinate ER 50 mg tablet,exte nded release 24 hr TAKE 1 TABLET BY MOUTH ONCE DAILY active Not Available Not Available No t Available diclofenac ER 100 mg tablet,exte nded release 24 hr active Not Available Not Available Not Available meloxicam 15 mg tablet TAKE 1 TABLET BY MOUTH DAILY FOR 15 DAYS 05/07 completed Not Available Not Available Not Available omeprazole 40 mg capsule,del ayed release TAKE 1 CAPSULE BY MOUTH TWICE DAILY BEFORE MEALS active Not Available Not Available No t Available acetaminoph en 500 mg tablet TAKE 2 TABLETS BY MOUTH EVERY 8 HOURS FOR 28 DAYS active Not Available Not Available No t Available ondansetron 8 mg disintegrat ing tablet DISSOLVE 1 TABLET UNDER THE TONGUE EVERY 8 HOURS NEEDED FOR NAUSEA 05/07 completed Not Available Not Available Not Available cefadroxil 500 mg capsule TAKE 1 CAPSULE BY MOUTH TWICE DAILY FOR 7 DAYS 05/07 completed Not Available Not Available Not Available methocarbam ol 750 mg tablet TAKE 1 TABLET BY MOUTH EVERY 6 HOURS NEEDED active Not Available Not Available No t Available triamcinolo ne acetonide 40 mg/mL suspension for injection Take 80 mg by injection route. 02/05 completed Not Available Not Available Not Available oseltamivir 75 mg capsule TAKE 1 CAPSULE BY MOUTH DAILY X 10 DAYS 01/19 completed Not Available Not Available Not Available lisinopril 30 mg tablet TAKE 1 TABLET BY MOUTH DAILY 01/19 completed Not Available Not Available Not Available betamethaso ne dipropionat e 0.05 % topical cream APPLY TOPICALLY TO THE AFFECTED AREA EVERY 12 HOURS FOR 7 DAYS active Not Available Not Available No t Available gabapentin 300 mg capsule TAKE 1 CAPSULE BY MOUTH EVERY 8 HOURS FOR 10 DAYS active Not Available Not Available No t Available methylpredn isolone 4 mg tablets in a dose pack FOLLOW PACKAGE DIRECTION S 01/24 completed Not Available Not Available Not Available doxycycline hyclate 100 mg tablet TAKE 1 TABLET BY MOUTH EVERY 12 HOURS active Not Available Not Available No t Available atovaquone 750 mg/5 mL oral suspension SHAKE LIQUID AND TAKE 5 ML BY MOUTH EVERY 12 HOURS FOR 10 DAYS DIRECTED 12/02 completed Not Available Not Available Not Available amoxicillin 875 mg-potassiu m clavulanate 125 mg tablet TAKE 1 TABLET BY MOUTH EVERY 12 HOURS FOR 7 DAYS 01/19 completed Not Available Not Available Not Available oxycodone 5 mg tablet TAKE 1 TABLET BY MOUTH EVERY 8 HOURS FOR 7 DAYS active Not Available Not Available No t Available olmesartan 20 mg tablet TAKE 1 TABLET BY MOUTH EVERY 24 HOURS active Not Available Not Available No t Available Marcaine (PF) 0.5 % (5 mg/mL) injection solution Take 4 mL by injection route. 02/05 completed Not Available Not Available Not Available lidocaine (PF) 10 mg/mL (1 %) injection solution Take 4 mL by injection route. 02/05 completed Not Available Not Available Not Available Symbicort 80 mcg-4.5 mcg/actuati on HFA aerosol inhaler INHALE 2 PUFFS BY MOUTH TWICE DAILY 01/19 completed Not Available Not Available Not Available Senexon-S 8.6 mg-50 mg tablet TAKE 1 TABLET BY MOUTH TWICE DAILY 06/14 completed Not Available Not Available Not Available tranexamic acid 650 mg tablet Take 3 tablets in the morning for 3 days; start on the first day after your surgery. 06/14 completed Not Available Not Available Not Available lidocaine (PF) 100 mg/5 mL (2 %) injection syringe Take 4 mL by injection route. 06/15 completed Not Available Not Available Not Available PreviDent 5000 Booster Plus 1.1 % dental paste APPLY 1 DROP TO THE TEETH AND BRUSH FOR 2 MINUTES AFTER FLOSSING BEFORE BEDTIME. DO NOT RINSE MOUTH OUT WITH WATER AFTER. ALLOW TO SIT ON TEETH active Not Available Not Available No t Available Eliquis 5 mg tablet TAKE 1 TABLET BY MOUTH TWICE DAILY. START AFTER THE STARTER PACK IS FINISHED 05/07 completed Not Available Not Available Not Available Eliquis 2.5 mg tablet TAKE 1 TABLET BY MOUTH TWICE DAILY FOR 14 DAYS 06/14 completed Not Available Not Available Not Available Eliquis DVT-PE Treatment 30-Day Starter 5 mg (74 tablets) in dose pack 05/07 completed Not Available Not Available Not Available Paxlovid 300 mg (150 mg x 2)-100 mg tablets in a dose pack TK 2 NIRMATREL VIR TS AND 1 RITONAVIR T TOGETHER PO BID FOR 5 DAYS 01/19 completed Not Available Not Available Not Available Vitals Date Recorded Body height Provider Name an d Address Organization Details Last Updated DateTime 06/14/2024 160.02 cm [facility], 06/14/2024 08:27:03 Date Recorded Body height Body mass index (BMI) Body weight Provider Name and Address Organization Details Last Updated DateTime 08/16/2024 160.02 cm 43 kg/m2 955989.95 g [facility], 08/16/2024 08:40:46 Social History None recorded. Functional Status Question Answer Note LastModified by Organizat ion Details LastModified Time Do you use any illicit or recreational drugs? No [email or web address] Information not available 12/02/2022 Do you or have you ever used any other forms of tobacco or nicotine? No [email or web address] Information not available 12/02/2022 What is your level of alcohol consumption? None [email or web address] Information not available 12/02/2022 Mental Status None recorded. Family History Nothing Reported. Medical History Condition Response Coronary Artery Disease N Gout N Hyperthyroidism N MRSA N Blood Transfusion N Emphysema N Depression N COPD N Hypothyroidism N Pacemaker N Vascular Disease N Gastrointestinal Disease N Anxiety Disorder N Autoimmune disease N Arthritis Y Cancer N Stroke N High Cholesterol N Neurologic Disorder N Liver Disease N Organ Transplant N Rheumatoid Arthritis N Arrhythmia N Fibromyalgia N Kidney Disease N Allergies/Hayfever N Adverse Reaction to Anesthesia N Thyroid Problems N Anemia N Brain Injury N Heart Attack ([place]) N Osteopenia N Diabetes N Bleeding Disorder N Seizures/Epilepsy N AIDS/HIV N Congestive Heart Failure (CHF) N Asthma N Amputation N Reflux/GERD Y Sleep Apnea N Hepatitis N Aneurysm N Heart Disease N Pulmonary Embolism N Hypertension N Osteoporosis N Gynecological HistoryNo gynecological history recorded. Obstetrics History GPAL:G 0 P 0 0 0 0 Past Encounters Encounter ID Performer Location Encounter Start Date Encounter Closed Date Diagnosis/Indication Diagnosis SNOMED-CT Code Diagnosis ICD10 Code Diagnosis IMO Codes Diagnosis Note [id number] [facility] [address] [place] [address] 3 11/24/2022 11:40:50 11/24/2022 12:36:37 Low back pain 763262085 M54.50 Arthritis of hip 2803543 6 M13.859 Lumbar arthritis 2912950 01 M46.96 [id number] KVNG VARMA [facility] [address] [place] [address]671 3 12/02/2022 13:40:15 12/02/2022 14:31:01 Pain of right hip joint 2901510102 99147 M25.551 [id number] KVNG VARMA [facility] [address] [place] [address] 75500-397 3 01/24/2023 08:22:12 01/24/2023 08:56:21 Pain of right hip joint 6644562204 65253 M25.551 [id number] [address] 3 02/02/2023 14:57:07 02/02/2023 16:13:35 Low back pain 123879665 M54.50 Lumbar spondylosis 48050 0009 M47.896 Scoliosis of lumbar spine 431847396 M41.86 [id number] LEA GUALLPA PA-C [address] [address] 3 03/10/2023 08:39:57 03/10/2023 09:33:43 Pain of right shoulder joint 2585648929 6965953 M25.511 Impingemen t syndrome of right shoulder region 4160768131 89607 M75.41 Tendinitis of right rotator cuff 5332838689 6273273 M67.813 [id number] [address] 3 04/14/2023 08:20:14 04/14/2023 09:05:54 Pain of left knee joint 2002864306 02014 M25.562 Swelling of lower leg 44 3308784 R22.40 Osteoarthr itis of left knee joint 9801037502 91597 M17.12 [id number] KVNG RIVERA [facility] [address] [place] [address] 81919-012 3 04/28/2023 08:37:36 04/28/2023 09:03:47 Osteoarthritis of left knee joint 8622826782 08754 M17.12 [id number] KVNG ESCOBAR [facility] [address] [place] [address] 77213-569 3 05/11/2023 08:45:02 05/11/2023 09:48:28 Low back pain 409697948 M54.50 Lumbar spondylosis 70806 0009 M47.896 Scoliosis of lumbar spine 522501676 M41.86 [id number] MD SORIN Shah[address] [address]991 3 06/16/2023 13:06:22 06/16/2023 13:57:45 Lumbar spondylosis 328252510 M47.896 Low back pain 619019442 M54.50 Lumbar arthritis 4913265 01 M46.96 Body mass index 40+ - severely obese 449259670 E66.01 Additional diagnosis detail: Severe obesity (BMI >= 40) [id number] MD ZUNILDA Phillips [facility] [address] [place] [address] 86327-091 3 01/20/2024 09:16:02 01/20/2024 11:12:21 Pain of knee region 2031762986 M25.562 G89.29 [id number] Otoniel Zaman MD [address] [place] [address]655 9 02/07/2024 13:22:36 02/07/2024 14:18:40 Osteoarthritis of left knee joint 3612531503 56151 M17.12 Arthritis of knee 527518 002 M13.869 [id number] VEENA STEWART PA-C [address] [address] 3 05/07/2024 09:09:26 05/07/2024 09:27:01 History of total knee arthroplasty 9554623077 105 Z96.652 [id number] Otoniel Zaman MD [address] [address] 3 06/14/2024 08:24:42 06/14/2024 08:39:59 Surgical follow-up 620414633 Z47.1 Z96.652 [id number] Otoniel Zaman MD [address] [address]67-162 3 08/16/2024 08:35:34 08/16/2024 08:58:09 History of left total knee replacement 9260285996 776937 Z96.652 [id number] Surgical follow-up 81907 4000 Z47.1 Z96.652 80256792 Health Concerns Section Related Observation LastModified by Organization Detai ls LastModified Time None Recorded Concern Status LastModified by Organization Details LastModified Time None Recorded Advance Directives Directive None Recorded Payers Insurance Date Sequence Insurance Name Policy Number Policy Teran Covered Member ID Teran Member ID Guarantor Name 08/13/2024 1 [facility] (MEDICARE REPLACEMENT/A DVANTAGE - PPO) [id number] Deb Dunham [id number] Deb Dunham Notes Date Note Type Note Provider Name and Address Organization Details Recorded Time 01/20/2024 text/html ROS as noted in the HPI Patient is a 68-year-old woman presenting to the [facility] regarding left knee pain. She states that she has had no known injury. She was here approximately month ago however given due to her swelling was instructed to see a vascular surgeon as she has a referral placed and she is seeing 1 in the next week or so. She describes her left knee is painful swelling and warm. Of note she did have an ultrasound of her left lower extremity which was negative for deep venous thrombosis. Additionally she does report posteriorly radiate radiated radiating pain back of her leg consistent with sciatica in the S1 distribution. She has tried working with dietitians however was been unable to lose weight. She is 5 foot 4, 230 pounds with BMI 40.3. Ravi Vasquez MD [address], [place], [address], [place] [facility] P 01/22/2024 09:20:18 OBGyn Episode No OBEpisode recorded.
--- OUTSIDE RECORDS SUMMARY | 2024-12-13 17:09 | XMS_ITS | Encounter Summary ---
Author Organization [facility] Address [address] [place] [address] Care Team Providers Care Business Development Manager Name Role Phone Anamika Milton ND Unavailable [phone] Ubaldo Kevin MD Primary Care Provider [phone] Encounter Details Date Type Department Care Team (Late st Contact Info) Description 03/01/[address] [facility] End[facility] [address] [place] [address] Patricia Lacy MD [address] [facility] [address] [place], [place] [id number] Social History Tobacco Use Types Packs/Day Years [...] filedocumented in this encounter Care Teams Business Development Manager Relationship Specialty Start Date End Date Anamika Milton ND PCP - Allergy Naturopathic Medicine 05/26/18 Ubaldo Kevin MD [address] [address] PCP - General Internal Medicine 05/26/18 documented as of this encounter
--- OUTSIDE RECORDS SUMMARY | 2024-12-13 17:09 | XMS_ITS | Encounter Summary ---
Author Organization [facility] Address [address] [place] [address] Care Team Providers Care Community Assistant Name Role Phone Andrey Kevin MD Primary Care Provider [phone] Raheem Allen MD Primary Care Provider [phone] Anamika Milton ND Unavailable [phone] Ubaldo Kevin MD Primary Care Provider [phone] Encounter Details Date Type Department Care Team (Late st Contact Info) Description 02/24/2015 Scanned Document [address] [facility] [address] [place] [address] Provider, Generic Social History Tobacco Use [...] on filedocumented in this encounter Care Teams Community Assistant Relationship Specialty Start Date End Date Andrey Kevin MD PCP - General Gastroenterology 04/07/16 04/15/16 Raheem Allen MD [address] [place] [address] PCP - General Family Medicine 04/16/16 05/25/18 Anamika Milton ND [address] [place] [address] PCP - Allergy Naturopathic Medicine 05/26/18 Ubaldo Kevin MD [address] [address] PCP - General Internal Medicine 05/26/18 documented as of this encounter
--- OUTSIDE RECORDS SUMMARY | 2024-12-13 17:09 | XMS_ITS | Encounter Summary ---
Author Organization [facility] Address [address] [place] [address] Care Team Providers Care Wafer Fab Technician Name Role Phone Anamika Milton ND Unavailable [phone] Ubaldo Kevin MD Primary Care Provider Encounter Details Date Type Department Care Team (Late st Contact Info) Description 02/26/2021 Scanned Document [facility] [address] [id number] Andrey Kevin MD [address] [place] [address] [address] [place] [address] Social History Tobacco Use Types Packs/Day Years [...] on filedocumented in this encounter Care Teams Wafer Fab Technician Relationship Specialty Start Date End Date Anamika Milton ND PCP - Allergy Naturopathic Medicine 05/26/18 Ubaldo Kevin MD [address] [place] [address] PCP - General Internal Medicine 05/26/18 documented as of this encounter
--- OUTSIDE RECORDS SUMMARY | 2024-12-13 17:09 | XMS_ITS | Clinical Summary ---
Author Organization [facility] Address [address] [place] [address] Care Team Providers Care Direct Support Specialist Name Role Phone Ubaldo Kevin MD Unavailable [phone] Pcp, No MD Primary Care Provider Unavailabl [...] complete this topic Insurance MEDICARE Care Teams Direct Support Specialist Relationship Specialty Start Date End Date Ubaldo Kevin MD [address] [place] [address] PCP - Insurance Payer PCP 08/31/23 aTylor Marquez MD [address] [place] [address] PCP - General Internal Medicine 08/31/23
--- OUTSIDE RECORDS SUMMARY | 2024-12-13 17:09 | XMS_ITS | Clinical Summary ---
Author Organization [facility] Address [address] [place] [address] Care Team Providers Care Spray Machine Loader Name Role Phone Anamika Milton ND Unavailable [phone] Ubaldo Kevin MD Primary Care Provider Allergies No known active allergies Medications metoPROLOL [...] is always my goal to limit their snf use. While on PPIs, the patient should [...] Vaccine (1 of 2) 2004 RSV Vaccine 50 years and older and Patients (1 - [...] Payer ID:[id number] (NAIC) Type:Not on file Address: [place] [id number] [facility] MEDICARE Member Subscriber Plan / Payer (Ef fective 2020-Present) Name:Deb Dunham Relation to Subscriber:Self Name:Deb Dunham Payer ID:[id number] (NAIC) Type:Not on file Address: [place] [id number] [facility] MEDICARE MEDICARE PART A & B [facility] MEDICARE Advance Directives Documents on File Type Date Recorded Patient Certified Composites Technician Expl anation Advance Directive-Scan 06/28/2023 CHECK OUT Advance Directive-Scan 06/28/2023 MRI R [facility]PORT-[facility] Care Teams Spray Machine Loader Relationship Specialty Start Date End Date Aanmika Milton ND PCP - Allergy Naturopathic Medicine 05/26/18 Ubaldo Kevin MD [address] [place] [address] PCP - General Internal Medicine 05/26/18
--- OUTSIDE RECORDS SUMMARY | 2024-12-13 17:09 | XMS_ITS | Encounter Summary ---
Author Organization [facility] Address [address] [place] [address] Care Team Providers Care Coil Shaper Name Role Phone Andrey Kevin MD Primary Care Provider [phone] Raheem Allen MD Primary Care Provider [phone] Anamika Milton ND Unavailable [phone] Ubaldo Kevin MD Primary Care Provider [phone] Encounter Details Date Type Department Care Team (Late st Contact Info) Description 04/21/2010 Scanned Document [address] [place] [address] Provider, Generic Social History Tobacco Use [...] on filedocumented in this encounter Care Teams Coil Shaper Relationship Specialty Start Date End Date Andrey Kevin MD PCP - General Gastroenterology 04/07/16 04/15/16 Raheem Allen MD [address] [place] [address] PCP - General Family Medicine 04/16/16 05/25/18 Anamika Milton ND [address] [place] [address] PCP - Allergy Naturopathic Medicine 05/26/18 Ubaldo Kevin MD [address] [address] PCP - General Internal Medicine 05/26/18 documented as of this encounter
--- OUTSIDE RECORDS SUMMARY | 2024-12-13 17:09 | XMS_ITS | Encounter Summary ---
Author Organization [facility] Address [address] [place] [address] Care Team Providers Care Flasher Adjuster Name Role Phone Katelin Miltonzabeth KATHARINA Unavailable [phone] Ubaldo Kevin MD Primary Care Provider [phone] Encounter Details Date Type Department Care Team (Late st Contact Info) Description 05/11/2021 Scanned Document [facility] [address] [place] [address] [place] [address] Andrey Kevin MD [address] [facility] [address] [place], [place] [id number] Social History Tobacco Use Types Packs/Day Years [...] on filedocumented in this encounter Care Teams Flasher Adjuster Relationship Specialty Start Date End Date Anamika Milton ND PCP - Allergy Naturopathic Medicine 05/26/18 Ubaldo Kevin MD [address] [address] PCP - General Internal Medicine 05/26/18 documented as of this encounter
--- OUTSIDE RECORDS SUMMARY | 2024-12-13 17:09 | XMS_ITS | Clinical Summary ---
Author Organization [facility] Address [address] [place] [address] Care Team Providers Care Automatic Embroidery Machine Tender Name Role Phone Ubaldo Kevin MD Primary Care Provider [phone] Allergies No known active allergies Medications Medication Sig Dispensed Refills Start Date End Date Status [place]-3 Fatty Acids (OMEGA 3 PO) Take 3 [...] Shingrix-Zoster Vaccine (1 o f 2) 2004 Fall Risk Assessment 12/05/2019 Osteoporosis Screening (DEXA Scan) 12/05/2019 Pneumococcal Vaccine (1 of 1 - PCV) 12/05/2019 COVID-19 Vaccine (4 - 2024-2 6 season) 2024 04/15/2021, 06/23/2020, 06/02/2020 Influenza Vaccine (#1) 2024 RSV Adult > 60+ Yrs or (1 - 1-dose 75+ series) 2029 Hepatitis B Vaccines Aged Out No long er eligible based on patient's age to complete this topic RSV Ped < 20 months Aged Out No longe r eligible based on patient's age to complete this topic Advance Directives For more information, please contact: [phone] Latest Code Status on File Code Status [...] following way: discussion with patient. Care Teams Automatic Embroidery Machine Tender Relationship Specialty Start Date End Date Ubaldo Kevin MD [address] [place] [address] PCP - General Internal Medicine 12/08/22
--- OUTSIDE RECORDS SUMMARY | 2024-12-13 17:09 | XMS_ITS | Clinical Summary ---
Author Organization [facility] [place] [address] Phone Care Team Providers Care In Flight Crew Member Name Role Phone Ubaldo Kevin MD Primary Care Provider [phone] Allergies No known active allergies Medications diclofenac [...] review, hyperlipidemia per patient report, managed by yard stocker, not taking statin. Low-cholesterol diet and lifestyle modification. Suggest continued outpatient follow up. Pneumonia of both lungs due to infectious organi sm 04/04/2024 Overview (04/04/2024): Per patient, hospitalized at [facility] in August 2023 with bilateral pneumonia and sepsis. Followed with pulmonary at discharge Assessment & Plan (04/10/2024 3:47 PM EST): August 2023 was hospitalized for pneumonia and sepsis at [facility] for 1 week in the ICU. She [...] pre-op. DVT (deep venous thrombosis) (CMS/HCC V24, [facility]/ CC V28) Assessment & Plan (04/04/2024 3:40 [...] EDT - 09/23/2024 3:19 PM EDT Emergency [facility] Emergency [address] [place] [id number] Estrada Petty MD Other speech disturbance (Primary Dx) Discharge Disposition: Home or Self Care from Last 3 Months Surgical History Surgery Date Site/Laterality Comments ROTATOR CUFF REPAIR 02/28/2015 - 02/28/2016 Right TONSILLECTOMY OTHER SURGICAL HISTORY PILONIDAL CYST / SINUS EXCISION UPPER GASTROINTESTINAL ENDOSCOPY 03/15/2016 N/A UPPER GASTROINTESTINAL ENDOSCOPY 12/22/2015 N/A Medical History Medical History Date Comments Hernia, hiatal DVT (deep venous thrombosis) ([facility] V24, [facility] V28) left GERD (gastroesophageal reflux disease) History of transfusion Family history of upper GI bleeding Iron deficiency anemia Palpitations 04/01/2024 PONV (postoperative nausea a nd vomiting) 04/01/2024 Morbid obesity ([facility] V24, [facility] V28) 04/01/2024 HTN (hypertension) 04/04/2024 Hyperlipidemia 04/04/2024 Pneumonia of both lungs due to infectious organism 04/04/2024 Per patient, hospitalized at [facility] in August 2023 with bilateral pneumonia and [...] Last Done Comments Breast Cancer Screening 1954 Colorectal Cancer Screening: Colonoscopy 1954 DTaP,Tdap,and Td Vaccines (1 - Tdap) 1973 Pneumococcal Vaccine: 50+ Years (1 of 1 - PCV) 2004 RSV Immunization Adult Patients (1 - Risk 50-74 years 1-dose series) 2004 Cholesterol Screening (Lipid Panel) 04/03/2023 Falls Risk Assessment 04/03/2023 Hepatitis C [...] on 09/23/2024 2:35 PM. Workstation Name - [id number] -------- FINAL REPORT -------- Dictated By: Otoniel Marinelli Dictated Date: 09/23/2024 14:33 ET Assigned Physician: Otoniel Marinelli Reviewed and Electronically Signed By: Otoniel Marinelli Signed Date: 09/23/2024 14:35 ET Workstation ID: [id number] Transcribed By: Self Edit Transcribed Date: 09/23/2024 [...] Marinelli on 09/23/2024 2:35 PM.Workstation Name - [id number] -------- FINAL REPORT -------- Dictated By: Otoniel Marinelli Dictated Date: 09/23/2024 14:33 ET Assigned Physician: Otoniel Marinelli Reviewed and Electronically Signed By: Otoniel Marinelli Signed Date: 09/23/2024 14:35 ET Workstation ID: [id number] Transcribed By: Self Edit Transcribed Date: 09/23/2024 14:33 ET us Estrada Petty MD IMG CT PROCEDURES Final Result * Magnesium (09/23/2024 1:41 PM EDT) Magnesium 2.3 1.7 - 2.8 mg/dL LAB CHEMISTRY METHOD 09/23/2024 2:01 PM EDT [facility] Comment:Slight Hemolysis may affect test result(s). Blood Venous blood specimen / Unknown Venipuncture / Unknown 09/23/2024 1:41 PM EDT 09/23/2024 1:43 PM EDT us Estrada Petty MD LAB BLOOD ORDERABLES Final Resu lt [facility] [address] [place] [address], [place] [phone] * RHYTHM ECG, REPORT (09/23/2024 1:18 PM EDT) Estrada Gilmore MD - 09/23/2024 1:18 PM EDT Estrada Petty MD 09/24/2024 9:45 AM ECG Rhythm Interpretation and Report Date/Time: 09/23/2024 1:18 PM Performed by: Estrada Petty MD Authorized by: Estrada Petty MD ECG interpreted by ED Physician in the absence of a general farm hand: yes Rate: ECG rate: 84 ECG rate [...] CBC auto differential (09/23/2024 12:33 PM EDT) [facility] WBC 7.5 4.0 - 10.5 K/mcL LAB HEMETOLOGY METHOD 09/23/2024 12:39 PM EDT [facility] RBC 4.44 4.20 - 5.40 M/mcL LAB [facility] Hemoglobin 12.3(L) 12.5 - 16.0 g/dL LAB HEMETOLOGY METHOD 09/23/2024 12:[facility] Hematocrit 36.7(L) 37.0 - 47.0 % LAB HEMETOLOGY METHOD 09/23/2024 12:39 [facility] MCV 82.7 78.0 - 100.0 FL LAB HEMETOLOGY METHOD 09/23/2024 12:39 [facility] MCH 27.7 25.0 - 33.0 pcg LAB HEMETOLOGY METHOD 09/23/2024 12:39 [facility] MCHC 33.5 32.0 - 36.0 g/dL LAB HEMETOLOGY METHOD 09/23/2024 12:39 [facility] RDW 16.0 12.1 - 16.2 % LAB HEMETOLOGY METHOD 09/23/2024 12:39 [facility] Platelets 342 150 - 450 K/mcL LAB HEMETOLOGY METHOD 09/23/2024 12:39 [facility] MPV 9.1 7.4 - 11.4 FL LAB HEMETOLOGY METHOD 09/23/2024 12:39 PM [facility] Neutrophils Relative 54.5 44.0 - 74.0 % LAB HEMETOLOGY METHOD 09/23/2024 12:39 [facility] Lymphocytes Relative 32.6 20.0 - 48.0 % LAB HEMETOLOGY METHOD 09/23/2024 12:39 PM [facility] Monocytes Relative 7.0 2.0 - 12.0 % LAB HEMETOLOGY METHOD 09/23/2024 12:39 [facility] Eosinophils Relative 5.1 0.0 - 6.0 % LAB HEMETOLOGY METHOD 09/23/2024 12:39 PM [facility] Basophils Relative 0.5 0.0 - 2.0 % LAB HEMETOLOGY METHOD 09/23/2024 12:39 [facility] Neutrophils Absolute 4.06 1.80 - 7.80 K/mcL LAB HEMETOLOGY METHOD 09/23/2024 12:39 [facility] Lymphocytes Absolute 2.43 1.00 - 3.20 K/mcL LAB HEMETOLOGY METHOD 09/23/2024 12:39 PM [facility] Monocytes Absolute 0.52 0.00 - 0.80 K/mcL LAB HEMETOLOGY METHOD 09/23/2024 12:39 PM [facility] Eosinophils Absolute 0.38 0.00 - 0.50 K/mcL LAB HEMETOLOGY METHOD 09/23/2024 12:39 PM [facility] Basophils Absolute 0.04 0.00 - 0.20 K/mcL LAB HEMETOLOGY METHOD 09/23/2024 12:39 PM [facility] Blood Venous blood specimen / Unknown Venipuncture / Unknown 09/23/2024 12:33 PM EDT 09/23/2024 12:36 PM EDT us Estrada Petty MD LAB BLOOD ORDERABLES Final Resu lt [facility] [address] [place] [address], [place] [phone] * (ABNORMAL) Comprehensive metabolic panel (09/23/2024 12:33 PM EDT) Sodium 135 135 - 145 mmol/L LAB CHEMISTRY METHOD 09/23/2024 1:[facility] Potassium 4.1 3.5 - 5.1 mmol/L LAB CHEMISTRY METHOD 09/23/2024 1:00 PM [facility] Chloride 100 98 - 107 mmol/L LAB CHEMISTRY METHOD 09/23/2024 1:00 PM [facility] CO2 25 24 - 32 mmol/L LAB CHEMISTRY METHOD 09/23/2024 1:00 PM [facility] Anion Gap 10 5 - 14 LAB CHEMISTRY METHOD 09/23/2024 1:[facility] Glucose 114(H) 70 - 99 mg/dL LAB CHEMISTRY METHOD 09/23/2024 1:00 PM [facility] BUN 20(H) 7 - 17 mg/dL LAB CHEMISTRY METHOD 09/23/2024 1:00 PM [facility] Creatinine 1.11(H) 0.50 - 1.00 mg/dL LAB CHEMISTRY METHOD 09/23/2024 1:00 PM [facility] eGFR 54(L) >=60 mL/min/1. 73m2 LAB CHEMISTRY METHOD 09/23/2024 1:00 PM [facility] Comment:Calculation based on the Chronic Kidney Disease Epidemiology Collaboration (CKD-EPI) equation refit without adjustment for race. BUN/Creatinine Ratio 18.0 12.0 - 20.0 LAB CHEMISTRY METHOD 09/23/2024 1:00 PM [facility] Calcium 9.0 8.4 - 10.2 mg/dL LAB CHEMISTRY METHOD 09/23/2024 1:00 PM [facility] AST (SGOT) 25 5 - 40 unit/L LAB CHEMISTRY METHOD 09/23/2024 1:00 PM [facility] ALT (SGPT) 16 7 - 52 unit/L LAB CHEMISTRY METHOD 09/23/2024 1:00 PM [facility] Alkaline Phosphatase 90 34 - 104 unit/L LAB CHEMISTRY METHOD 09/23/2024 1:00 PM [facility] Total Protein 7.7 6.4 - 8.5 g/dL LAB CHEMISTRY METHOD 09/23/2024 1:00 PM [facility] Albumin 4.5 3.5 - 5.0 g/dL LAB CHEMISTRY METHOD 09/23/2024 1:00 PM [facility] Total Bilirubin 0.4 0.3 - 1.0 mg/dL LAB CHEMISTRY METHOD 09/23/2024 1:00 PM [facility] Blood Venous blood specimen / Unknown Venipuncture / Unknown 09/23/2024 12:33 PM EDT 09/23/2024 12:36 PM EDT us Estrada Petty MD LAB BLOOD ORDERABLES Final Resu lt [facility] [address] [place] [address], [place] [phone] * ECG 12 lead - Procedural (No Charge) (09/23/2024 12:16 PM EDT) Ventricular Rate ECG 84 BPM GEMUSE Atrial Rate 84 BPM GEMUSE P-R Interval 144 ms GEMUSE QRS Duration 66 ms GEMUSE Q-T Interval 366 ms GEMUSE QTc 432 ms GEMUSE P Wave [place] 19 degrees GEMUSE T [place] 13 degrees GEMUSE ECG Interpretation Normal sinus rhythm Possible Left atrial enlargement Left ventricular hypertrophy Abnormal ECG No previous ECGs available Confirmed by Chata Man ([id number]) on 09/28/2024 12:27:13 PM GEMUSE 09/23/2024 12:1 6 PM EDT 09/28/2024 12:27 PM EDT us Estrada Petty MD ECG ORDERABLES Final Result GEMUSE * POCT Glucose, blood (09/23/2024 12:15 PM EDT) [facility] Glucose POCT 98 70 - 199 mg/dL 09/23/2024 12:15 PM EDT [facility] Comment: Glucose Reference Range: Normal fasting 70 mg/dL - 99 mg/dL Non-fasting 70 mg/dL - 199 mg/dL Blood Capillary blood specimen / Unknown 09/23/2024 12:15 PM EDT 09/23/2024 12:17 PM EDT us Generic Provider Poct LAB POINT OF CARE TEST DOCKED DEVICE UNSOLICITED RESULTS Final Result Performing Organization Address City[facility] Co de Phone Number [facility] [address] [place] [address], [place] [phone] from Last 3 Months Insurance [facility] MEDIC[facility] [employer] MEDICARE Care Teams In Flight Crew Member Relationship Specialty Start Date End Date Ubaldo Kevin MD [address] [place] [address] PCP - General 12/08/22
== END 2024-12-13 14:54 | disposition home or self-care (01) ==
LOC: HO.HNS 13:32
PROVIDERS: PCP Internal Medicine; Visit Provider Physician Assistant
DX: M43.16 Spondylolisthesis, lumbar region (principal)
CPT/HCPCS: 99024

== ENCOUNTER 2025-01-10 08:36 | Outpatient (REF) | payer MEDICARE, SELFPAY ==
--- NOTE | ~2025-01-10 | XR_ITS ---
EXAMINATION: XR HIP, RIGHT CLINICAL INFORMATION: M25.551 - Pain in right hip COMPARISON: None available. TECHNIQUE: Two views of the right hip. FINDINGS: Mild-moderate right hip arthritis. No visible acute fracture, dislocation or suspicious bony lesion. Chronic calcification/ossification lateral to the greater trochanter. Partially imaged orthopedic hardware in the lower lumbar spine. XR/XR hip RT min 2V IMPRESSION: Mild-moderate right hip arthritis. Electronically signed by: Edi Antoine MD 01/11/2025 11:50 AM [facility]
--- NOTE | ~2025-01-10 | XR_ITS ---
EXAMINATION: X-ray lumbar spine CLINICAL INFORMATION: Spondylolisthesis COMPARISON: Fluoroscopy 11/13/2024 TECHNIQUE: 4 views lumbar spine including flexion-extension views. FINDINGS: Bone mineralization is decreased. Mild scoliotic curvature. Posterior spinal fusion hardware at L4-5, with intervertebral body spacer device. Intact hardware. No suspicious perihardware lucency. No significant subluxation/instability is identified on the flexion/extension views. Multilevel severe disc degeneration otherwise in the lumbar spine. Multilevel facet degeneration. No evidence of acute fracture. SI joints are symmetric, with mild degenerative changes. No suspicious soft tissue calcifications. XR/XR lumbar spine 4V min IMPRESSION: Postsurgical changes from posterior spinal fusion at L4-5. No findings to suggest hardware failure. No acute osseous findings Electronically signed by: Edi Antoine MD 01/11/2025 01:34 PM EST
== END 2025-01-10 08:37 | disposition home or self-care (01) ==
LOC: HO.HOSX 08:36
PROVIDERS: Visit Provider Physician Assistant
DX: Z47.89 Encounter for other orthopedic aftercare (principal); M43.16 Spondylolisthesis, lumbar region; M25.551 Pain in right hip; Z98.1 Arthrodesis status
CPT/HCPCS: 72110; 73502; 99212

== ENCOUNTER 2025-01-10 14:02 | Outpatient (AMB) | payer MEDICARE, SELFPAY ==
--- OUTSIDE RECORDS SUMMARY | 2023-12-30 12:25 | XMS_ITS | Encounter Summary ---
Author Organization [facility] Address [address] [place] [address] Care Team Providers Care Manager Of Change Name Role Phone Ubaldo Kevin MD Primary Care Provider [phone] Encounter Details Date Type Department Care Team (Latest Contact Info) Description 12/30/2023 1:25 PM EDT Hospital Encounter TH HISTORIC ENCOUNTERS EASTERN CONVERSION ONLY Pain in right hip Social History Tobacco Use Types Packs/Day Years Used Date Smoking Tobacco: Former Cigarettes 0.5 20 0 02/29/1972 - 02/29/1992 Alcohol Use Standard Drinks/Week Comments Yes 0 (1 standard drink = 0.6 oz pur e alcohol) occ Comments Unknown Sex and Gender Information Value Date Recorded Sex Assigned at Female 08/02/2024 10:21 AM EDT Legal Sex Female 3:45 PM EST Gender Identity Female 08/02/2024 10:21 AM EDT Sexual Orientation Choose not to disclose 2024 10:21 AM EDT documented as of this encounter Last Filed Vital Signs Vital Sign Reading Time Taken Comments Blood Pressure - - Pulse - - Temperature - - Respiratory Rate - - Oxygen Saturation - - Inhaled Oxygen Concentration - - Weight 104 kg (230 lb) 11/07/2023 8:13 AM EDT Height 160 cm (5' 3 ) 11/07/2023 8:13 AM EDT Body Mass Index 40.74 11/07/2023 8:13 AM EDT documented in this encounter Functional Status * Calculated C-SSRS Risk Score (Lifetime/Recent) Answer Date of Assessment Author No Risk Indicated 09/23/2024 12:31 PM EDT Pamela Villar RN * [place] Suicide Severity Rating Scale (Screener/Recent Self-Report) Question Answer Date of Assessment Author 1. Wish to be (Past 1 Month) No 025 12:31 PM EDT Pamela Moran RN 2. Non-Specific Active Suici giana Thoughts (Past 1 Month) No 09/23/2024 12:31 PM EDT Iris Moran RN 6. Suicidal Behavior (Lifetime) No 12:31 PM EDT Pamela Moran RN documented as of this encounter Plan of Treatment Not on file documented as of this encounter Procedures Procedure Name Priority Date/Time Associated Diagnosis Comments FL STEROID OR ANESTHETIC INJECTION - HIP RIGHT Routine 12/30/2023 2:52 PM EDT Pain in right hip documented in this encounter Results * FL STEROID OR ANESTHETIC INJECTION - HIP RIGHT (12/30/2023 2:52 PM EDT) Anatomical Region Laterality Modality Radio Fluoroscop y 12/20/2023 9:24 AM EDT Narrative 12/30/2023 3:59 PM EDT Fluoroscopically guided steroid/long-acting anesthetic injection, right hip. INDICATION: Osteopenia arthritis related, right hip pain. The right hip was prepared and draped in sterile fashion. With fluoroscopy a puncture site directly overlying the lateral margin of the femoral head, femoral neck junction was selected. 7 cc of 1% lidocaine was administered the puncture site. 20-gauge needle advanced under fluoroscopic guidance to the surface of the femoral head, neck junction and intra-articular needle tip position confirmed with 3 cc injection of Isovue 300. Next, 12 cc of 0.5% bupivacaine and 80 mg of Depo-Medrol were introduced into the right hip joint. Confirmatory arthrogram obtained and transferred to PACS. Needle removed and dry dressing applied. CONCLUSION: Fluoroscopically guided therapeutic injection, steroid/long acting anesthetic, right hip Total fluoroscopy time, 1 minute code 6045F Report reviewed and signed by : Dr. Raheem Reyes MD on 12/30/2023 3:59 PM. Workstation Name - [id number] 1 Procedure Note Raheem Reyes MD - 01/02/2024 Fluoroscopically guided steroid/long-acting anesthetic injection, righthip. INDICATION: Osteopenia arthritis related, right hip pain. The right hip was prepared and draped in sterile fashion. With fluoroscopy a puncture site directly overlying the lateral margin ofthe femoral head, femoral neck junction was selected. 7 cc of 1% lidocaine was administered the puncture site. 20-gauge needle advanced under fluoroscopic guidance to the surface of thefemoral head, neck junction and intra-articular needle tip positionconfirmed with 3 cc injection of Isovue 300. Next, 12 cc of 0.5% bupivacaine and 80 mg of Depo-Medrol were introducedinto the right hip joint. Confirmatory arthrogram obtained and transferred to PACS. Needle removed and dry dressing applied. CONCLUSION: Fluoroscopically guided therapeutic injection, steroid/longacting anesthetic, right hip Total fluoroscopy time, 1 minute code 6045F Report reviewed and signed by : Dr. Raheem Reyes MD on 12/30/2023 3:59 PM.Workstation Name - [id number] 1 [facility] IMG FLUOROSCOPY PROCEDURES Final Result documented in this encounter Visit Diagnoses Diagnosis Pain in right hip documented in this encounter Care Teams Manager Of Change Relationship Specialty Start Date End Date Ubaldo Kevin MD [address] [address] PCP - General 12/08/22 documented as of this encounter
--- NOTE | 2025-01-10 14:48 | HO.SPINEOV ---
Intake Visit Reasons: early 2nd post op with xrays Intake Note: Ms. Dunham is here today for her 2nd post op with x-rays. Physician General Practice Required: No Allergies No Known Allergies Allergy (Verified 11/13/24 06:13) Assessment & Plan Assessment & Plan (1) Right hip pain: Code(s): M25.551 - Pain in right hip Category: Medical (2) Spondylolisthesis, lumbar region: Code(s): M43.16 - Spondylolisthesis, lumbar region Category: Medical Plan Mrs Dunham is 2 months out from her L4-5 oblique lumbar interbody fusion. She still has back pain. The thing that has been bothering her the most is the pain over the right SI joint region. She had that before surgery and was hopeful it would go away with surgery, but unfortunately it only seems to be progressing with time. It is distinctly different from back pain. It is very focal in the sense that she can put her hand over it and reproduce it. I got a set of x-rays today of her right hip just to check on that and it does show some arthritis, but does not look too severe. There was no formal read back on the x-ray yet. The spine x-rays look great with stable positioning of her hardware. On exam she is not giving any pain with range of motion internal external of her hip. I do not think it is coming from the hip. The possibilities here could be a gluteal tendinopathy versus right SI joint inflammation. I am going to send her to PT 1st and do 6 weeks of conservative treatment with that. If that does not help we can consider an injection in the SI joint. Ankur Cuenca MD, PhD [facility] Orders: Orders PT Evaluation and Treatment Today M25.551 - Pain in right hip, M43.16 - Spondylolisthesis, lumbar region Coding Level of Care Code Global (41922) Diagnoses Right hip pain M25.551 Spondylolisthesis, lumbar region M43.16
--- OUTSIDE RECORDS SUMMARY | 2025-01-10 17:24 | XMS_ITS | Clinical Summary ---
Author Organization [facility] Address [address] [place] [address] Care Team Providers Care Double End Tenoner Setter Name Role Phone Ubaldo Kevin MD Primary Care Provider [phone] Allergies No known active allergies Medications Medication Sig Dispensed Refills Start Date End Date Status [place]-3 Fatty Acids (OMEGA 3 PO) Take 3 [...] Advance Directives For more information, please contact: [phone] Latest Code Status on File Code Status [...] following way: discussion with patient. Care Teams Double End Tenoner Setter Relationship Specialty Start Date End Date Ubaldo Kevin MD [id number] [place] [address] PCP - General Internal Medicine 12/08/22
--- OUTSIDE RECORDS SUMMARY | 2025-01-10 17:24 | XMS_ITS | Encounter Summary ---
Author Organization [facility] Address [address] [place] [address] Care Team Providers Care Collating Machine Operator Name Role Phone Anamika Milton ND Unavailable [phone] Ubaldo Kevin MD Primary Care Provider [phone] Encounter Details Date Type Department Care Team (Late st Contact Info) Description 02/26/2021 Scanned Document [facility] [address] [id number] Andrey Kevin MD [address] [place] [address] [address] [place] [address] Social History Tobacco Use Types Packs/Day Years [...] on filedocumented in this encounter Care Teams Collating Machine Operator Relationship Specialty Start Date End Date Anamika Milton ND PCP - Allergy Naturopathic Medicine 05/26/18 Ubaldo Kevin MD [address] [place] [address] PCP - General Internal Medicine 05/26/18 documented as of this encounter
--- OUTSIDE RECORDS SUMMARY | 2025-01-10 17:24 | XMS_ITS | Data Portability ---
Author Organization [place] [facility] Minor AONE Sherman Address [address] [place] [address] Care Team Providers Care Part Time Name Role Phone AMINATA PRAKASH Primary Care Provider [phone] AMINATA PRAKASH Referring Provider FREDIS BAER OTHER Assessment Encounter Date Assessment Date Assessment LastModified [...] programs, weight loss with or without a firewall engineer/cleaning staff supervisor assistance, ammonium nitrate neutralizer bracing if desired/tolerated, prescription strength oral anti-inflammatories [...] their own direction, and politely declined a Coke Crusher Operator/Pot Fluxer referral today. 4. Over the counter Tylenol as needed for pain. 5. Judicious use of qbkn-lyc-kbqnsae anti-inflammatory medication, they will discuss this with their primary care provider 6. Discussed ammonium nitrate neutralizer bracing, but the patient politely declined today. The patient will call if they change their mind and would like a prescription for a knee ammonium nitrate neutralizer brace. 7. Lastly, we discussed the risks, [...] degrees. The knee is stable within that rnkds-ok-jkpjhn to AP and ML stress. The alignment [...] left total knee replacement, robotic assisted, at [facility]. Not available 02/07/2024 14:08:57 05/07/2024 05/07/2024 HPI [...] pain relief in the knee and satisfactory taoist of function in terms of activities of [...] total knee arthroplasty. Continue knee conditioning exercises. Ekfi-sjj-xzxjrzp medications as needed. Ultimate failure may occur [...] 2023 025 [facility], [address] [place], [address], 5 09:25:41 Imaging XR, knee, 3 view 2024 025 [facility], [address], [place], [address], 5 12:00:22 XR, knee, 4 or more view 2023 aanmro [facility], [address], [place], [address], 4 14:18:40 Medication Orders lidocaine (PF) 10 mg/mL (1 %) injection solution 2023 [id number], [address] [place], [place], [id number], 5 09:04:23 Marcaine (PF) 0.5 % (5 mg/mL) injection solution 2023 [facility] #[id number], [address] [place], [place], [id number], 5 09:04:23 triamcinolo ne acetonide 40 mg/mL suspension for injection 2023 [facility] #[id number], [address] [place], [place], [id number], 5 09:04:23 Patient TargetsNo targets recorded. Patient Instructions Encounter Date Encounter Id Patient Instructions Last Modified By Organization Details Last Modified Time 01/20/2024 [id number] IMAGING: Three view radiographs of the LEFT knee (weightbearing AP, LATERAL, and [place] views), obtained on 04-03-23 were reviewed by [...] [email or web address]. [email or web address] Not available 01/22/2024 09:17:40 02/07/2024 [id number] AP, lateral, Joyner, and patellar view radiographs of the left knee taken today demonstrate left knee degenerative joint disease with joint space narrowing, osteophyte formation, and subchondral sclerosis. There is qtxu-gr-byfg articulation in the lateral compartment. There is evidence of prior ACL reconstruction with ACL screw. Not available 02/07/2024 14:07:28 05/07/2024 [id number] physical therapy * - Evaluate and treat as indicated to reduce pain and to improve strength, mobility, stability, range of motion, and function. Please teach a home exercise plan and incorporate PT into patient's exercise routine. 2-3 sessions weekly for 6-8 weeks. [email or web address] Not available 05/07/2024 09:28:06 08/16/2024 [id number] AP, lateral, and patellar radiographs of the [...] ation record ed. [email or web address] [address] , [place], [address], 01/02/2024 08:47:18 02/09/20 MRI, knee, w/o contr ast No observ ation record ed. [email or web address] Not Available 2023 11:10:52 04/02/19 25 04/02/2024 CT, knee, w/o contr ast No observ ation record ed. [facility] [address], [place], [address], 04/02/2024 15:57:15 Result Notes None recorded. Problems Name Problem SNOMED Code Status Onset Date Resolution Date Notes Provider Name and Address Organization Details Recorded Time Lumbar arthritis 550211573 Active [address], [place], [address] , [place] [facility] 3 12:40:15 Pain of right hip joint 1535177590463 02 Active [address], [place], [address] , [place] [facility] 3 14:14:17 Lumbar spondylosi s 075248515 Active [address] [facility], [place], [address] , [place] [facility] 3 16:11:42 Low back pain 988458922 Active [address], [place], [address] , [place] [facility] 3 16:11:43 Impingemen t syndrome of right shoulder region 3905550024263 02 Active [address], [place], [address] , [place] [facility] 4 09:34:39 Tendinitis of right rotator cuff 5338316839029 9104 Active [address], [place], [address] , [place] [facility] 4 09:34:46 Swelling of lower leg 698507338 Active [address], [place], [address] , [place] [facility] 4 08:59:31 Osteoarthr itis of left knee joint 7023576344627 09 Active [address], [place], [address] , [place] [facility] 4 09:02:53 Body mass index 40+ - severely obese 064737462 Active [address], [place], [address] , [place] [facility] 4 13:22:21 Pain of knee region 7026381462 Active [address], [place], [address] , [place] [facility] 4 15:47:26 Arthritis of knee 103838373 Active [address], [place], [address] , [place] [facility] 4 14:04:28 History of total knee arthroplas ty 2396619447535 Active 2024 VEENA STEWART PA-C [address], [place], [address] , [place] [facility] 5 09:26:53 Problem Notes None recorded. Procedures Surgical History Date Name Laterality Status Provider Name and Address Organization Details Recorded Time 04/24/19 25 TOTAL KNEE ARTHROPLASTY (SURG) completed Anamika Mckeon [facility] 04/26/2024 09:25:48 01/20/20 24 AJR Knee Injection completed MD [address], [place], [address], [place] [facility] 01/21/2024 15:57:23 04/28/19 24 MARIAH Knee Injection completed LEA GUALLPA PA-C [address], [place], [address], [place] [facility] 04/28/2023 09:24:02 02/28/19 08 Knee Surgery completed Petra Nation [facility] 12/02/2022 13:46:05 Shoulder Surgery completed Petra Nation [facility] 12/02/2022 13:45:58 Imaging Results None recorded. [...] Details Last Updated DateTime 06/14/2024 160.02 cm [facility], 06/14/2024 08:27:03 Date Recorded Body height Body mass index (BMI) Body weight Provider Name and Address Organization Details Last Updated DateTime 08/16/2024 160.02 cm 43 kg/m2 885229.95 g [facility], 08/16/2024 08:40:46 Social History None recorded. Functional Status Question Answer Note LastModified by Organizat ion Details LastModified Time Do you use any illicit or recreational drugs? No [email or web address] Information not available 12/02/2022 Do you or have you ever used any other forms of tobacco or nicotine? No [email or web address] Information not available 12/02/2022 What is your level of alcohol consumption? None [email or web address] Information not available 12/02/2022 Mental Status None [...] Anemia N Brain Injury N Heart Attack (OK) N Osteopenia N Diabetes N Bleeding Disorder [...] ICD10 Code Diagnosis IMO Codes Diagnosis Note [id number] [facility] [address] [place] [address] 11/24/2022 11:40:50 11/24/2022 12:36:37 Low back pain 277931441 M54.50 Arthritis of hip 4475988 6 M13.859 Lumbar arthritis 9696138 01 M46.96 07497 K[address] VARMA Lalo [address] [place] [address] 12/02/2022 13:40:15 12/02/2022 14:31:01 Pain of right hip joint 3442168065 43164 M25.551 57781 KV[address] VARMA [address]alo [address] [place] [address] 01/24/2023 08:22:12 01/24/2023 08:56:21 Pain of right hip joint 3317615519 44539 M25.551 [address] [address] 02/02/2023 14:57:07 02/02/2023 16:13:35 Low back pain 627725687 M54.50 Lumbar spondylosis 32127 0009 M47.896 Scoliosis of lumbar spine 619977620 M41.86 73001 LEA GUALLPA PA-C [address] [address] 03/10/2023 08:39:57 03/10/2023 09:33:43 Pain of right shoulder joint 8857634786 3684460 M25.511 Impingemen t syndrome of right shoulder region 5354791602 91602 M75.41 Tendinitis of right rotator cuff 8294599059 5434783 M67.813 [address] [address] 04/14/2023 08:20:14 04/14/2023 09:05:54 Pain of left knee joint 4919402126 39676 M25.562 Swelling of lower leg 44 2890467 R22.40 Osteoarthr itis of left knee joint 2425723967 66000 M17.12 76652 KVNG RIVERA [address]alo [address] [place] [address] 04/28/2023 08:37:36 04/28/2023 09:03:47 Osteoarthritis of left knee joint 1504728956 69361 M17.12 11168 KV[address] ESCOBAR [address] [place] [address] 05/11/2023 08:45:02 05/11/2023 09:48:28 Low back pain 580369841 M54.50 Lumbar spondylosis 49630 0009 M47.896 Scoliosis of lumbar spine 633197015 M41.86 03026 MD SORIN [address] [address] 06/16/2023 13:06:22 06/16/2023 13:57:45 Lumbar spondylosis 743258601 M47.896 Low back pain 168556769 M54.50 Lumbar arthritis 9009107 01 M46.96 Body mass index 40+ - severely obese 823753795 E66.01 Additional diagnosis detail: Severe obesity (BMI >= 40) 79919 MD ZUNILDA Phillips [facility] [address] [place] [address] 01/20/2024 09:16:02 01/20/2024 11:12:21 Pain of knee region 9389516856 M25.562 G89.29 15901124 41690 Otoniel Zaman MD [address] [place] [address] 02/07/2024 13:22:36 02/07/2024 14:18:40 Osteoarthritis of left knee joint 6074381045 95112 M17.12 Arthritis of knee 633481 002 M13.869 [id number] VEENA STEWART PA-C [address] [address] 05/07/2024 09:09:26 05/07/2024 09:27:01 History of total knee arthroplasty 4330036775 105 Z96.652 [id number] 989876 Otoniel Zaman MD [address] [address] 06/14/2024 08:24:42 06/14/2024 08:39:59 Surgical follow-up 169940362 Z47.1 Z96.652 03197113 [id number] Otoniel Zaman MD [address] [address] 08/16/2024 08:35:34 08/16/2024 08:58:09 History of left total knee replacement 3365642741 595939 Z96.652 61423577 Surgical follow-up 47250 4000 Z47.1 Z96.652 [id number] Health Concerns Section Related Observation LastModified by Organization Detai ls LastModified Time None Recorded Concern Status LastModified by Organization Details LastModified Time None Recorded Advance Directives Directive None Recorded Payers Insurance Date Sequence Insurance Name Policy Number Policy Teran Covered Member ID Teran Member ID Guarantor Name 08/13/2024 1 [facility] (MEDICARE REPLACEMENT/A DVANTAGE - PPO) [id number] Deb Dunham [id number] Deb Dunham Notes Date Note Type Note Provider Name and Address Organization Details Recorded Time 01/20/2024 text/html ROS as noted in the HPI Patient is a 68-year-old woman presenting to the [place] urgent care regarding left knee pain. She [...] Ravi Vasquez MD [address], [place], [address], [place] [facility] 01/22/2024 09:20:18 OBGyn Episode No OBEpisode recorded.
--- OUTSIDE RECORDS SUMMARY | 2025-01-10 17:24 | XMS_ITS | Encounter Summary ---
Author Organization [facility] Address [address] [place] [address] Care Team Providers Care Storage Management Architect Name Role Phone Karine Anamika KATHARINA Unavailable [phone] Ubaldo Kevin MD Primary Care Provider [phone] Encounter Details Date Type Department Care Team (Late st Contact Info) Description 05/11/2021 Scanned Document [facility] [address] [place] [address] [place] [address] Andrey Kevin MD [facility] [address] [place], [place] [address] Social History Tobacco Use Types Packs/Day Years [...] on filedocumented in this encounter Care Teams Storage Management Architect Relationship Specialty Start Date End Date Anamika Milton ND PCP - Allergy Naturopathic Medicine 05/26/18 Ubaldo Kevin MD [address] [address] PCP - General Internal Medicine 05/26/18 documented as of this encounter
--- OUTSIDE RECORDS SUMMARY | 2025-01-10 17:24 | XMS_ITS | Clinical Summary ---
Author Organization [facility] Address [address] [place] [address] Care Team Providers Care Bookkeeping Clerks Supervisor Name Role Phone Ubaldo Kevin MD Unavailable [phone] Pcp, No MD Primary Care Provider Unavailabl [...] complete this topic Insurance MEDICARE Care Teams Bookkeeping Clerks Supervisor Relationship Specialty Start Date End Date Ubaldo Kevin MD [address] [place] [address] PCP - Insurance Payer PCP 08/31/23 Taylor Marquez MD [address] [place] [address] PCP - General Internal Medicine 08/31/23
--- OUTSIDE RECORDS SUMMARY | 2025-01-10 17:24 | XMS_ITS | Encounter Summary ---
Author Organization [facility] Address [address] [place] [address] Care Team Providers Care Leather Softener Name Role Phone Anamika Milton ND Unavailable [phone] Ubaldo Kevin MD Primary Care Provider [phone] Reason for Referral * Outpatient Surgery (Routine) - Closed Specialty Diagnoses / Procedures Referred By Rodrick arroyo Referred To Contact Orthopedic Surgery Diagnoses Sacroiliitis, not elsewhere classified Poncho Bronson MD [address] [place] [address] Phone: tel: fax: Referral ID Status Reason Start Date Expiration Date Visits Re quested Visits Authorized [id number] Closed 06/28/2023 06/28/2024 1 1 Question Answer Primary Procedure: 39936 - FLUOR SAC INJ Additional Procedure(s): None Procedure: BILATERAL SACROILIAC JOINT INJECTION Surgery Date 07/11/2023 Performing Location: [facility] Duration (Mins): 30 Laterality: Bilateral Anesthesia: LOCAL Workers Comp? No Encounter Details Date Type Department Care Team (Late st Contact Info) Description 06/28/2023 [facility]urg [facility] [address] [phone] Poncho Bronson MD [address] [place] [address] Sacroiliitis, not elsewhere classified (HCC) (Primary Dx) [...] Primary documented in this encounter Care Teams Leather Softener Relationship Specialty Start Date End Date Anamika Milton ND PCP - Allergy Naturopathic Medicine 05/26/18 Ubaldo Kevin MD [address] [address] PCP - General Internal Medicine 05/26/18 documented as of this encounter
--- OUTSIDE RECORDS SUMMARY | 2025-01-10 17:24 | XMS_ITS | Clinical Summary ---
Author Organization [facility] Address [address] [place] [address] Care Team Providers Care Ict Support Technicians Name Role Phone Anamika Milton ND Unavailable [phone] Ubaldo Kevin MD Primary Care Provider [phone] Allergies No known active allergies Medications metoPROLOL [...] 1000 units tablet Take by mouth. 09/14/19 Discontinu ed(Patient /Family Refused) Probiotic Product (PROBIOTIC [...] is always my goal to limit their manager long term care use. While on PPIs, the patient should [...] 50+ (1 of 1 - PCV) 2004 RSV Vaccine 50 years and older and Patients (1 - Risk 50-74 years 1-dose series) 2004 Zoster (Shingles) Vaccine (1 of 2) 2004 DXA Bone Density (Females,Ages 65 and older) [...] Payer ID:[id number] (NAIC) Type:Not on file Address: [place] [id number] [facility] MEDICARE Member Subscriber Plan / Payer (Ef fective 2020-Present) Name:Deb Dunham Relation to Subscriber:Self Name:Deb Dunham Payer ID:[id number] (NAIC) Type:Not on file Address: [place] [phone] [facility] MEDICARE MEDICARE PART A & B [facility] MEDICARE Advance Directives Documents on File Type Date Recorded Patient Solid Waste Truck Driver Expl anation Advance Directive-Scan 06/28/2023 CHECK OUT Advance Directive-Scan 06/28/2023 MRI R EPORT-VTC Care Teams Ict Support Technicians Relationship Specialty Start Date End Date Anamika Milton ND PCP - Allergy Naturopathic Medicine 05/26/18 Ubaldo Kevin MD [address] [place] [address] PCP - General Internal Medicine 05/26/18
--- OUTSIDE RECORDS SUMMARY | 2025-01-10 17:24 | XMS_ITS | Encounter Summary ---
Author Organization [facility] Address [address] [place] [address] Care Team Providers Care Rn Mobile Name Role Phone Anamika Milton ND Unavailable Ubaldo Kevin MD Primary Care Provider [phone] Encounter Details Date Type Department Care Team (Late st Contact Info) Description 07/11/2023 Scanned Document [facility] [address] [address] Poncho Bronson MD [address] [place] [address] [address] [place] [address] Social History Tobacco Use Types Packs/Day Years [...] on filedocumented in this encounter Care Teams Rn Mobile Relationship Specialty Start Date End Date Anamika Milton ND PCP - Allergy Naturopathic Medicine 05/26/18 Ubaldo Kevin MD [address] [place] [address] PCP - General Internal Medicine 05/26/18 documented as of this encounter
--- OUTSIDE RECORDS SUMMARY | 2025-01-10 17:24 | XMS_ITS | Encounter Summary ---
Author Organization [facility] Address [address] [place] [address] Care Team Providers Care Investor Relations Associate Name Role Phone Andrey Kevin MD Primary Care Provider [phone] Raheem Allen MD Primary Care Provider [phone] Anamika Milton ND Unavailable [phone] Ubaldo Kevin MD Primary Care Provider [phone] Encounter Details Date Type Department Care Team (Late st Contact Info) Description 04/21/2010 Scanned Document [address] [place] [address] Provider, Generic Social History Tobacco Use [...] on filedocumented in this encounter Care Teams Investor Relations Associate Relationship Specialty Start Date End Date Andrey Kevin MD PCP - General Gastroenterology 04/07/16 04/15/16 Raheem Allen MD [address] [place] [address] PCP - General Family Medicine 04/16/16 05/25/18 Anamika Milton ND [address] [place] [address] PCP - Allergy Naturopathic Medicine 05/26/18 Ubaldo Kevin MD [address] [address] PCP - General Internal Medicine 05/26/18 documented as of this encounter
--- OUTSIDE RECORDS SUMMARY | 2025-01-10 17:24 | XMS_ITS | Encounter Summary ---
Author Organization [facility] Address [address] [place] [address] Care Team Providers Care Surgical Dental Assistant Name Role Phone Andrey Kevin MD Primary Care Provider [phone] Raheem Allen MD Primary Care Provider [phone] Anamika Milton ND Unavailable [phone] Ubaldo Kevin MD Primary Care Provider [phone] Encounter Details Date Type Department Care Team (Late st Contact Info) Description 02/24/2015 Scanned Document [address] [facility] [address] [place] [address] Provider, Generic Social History Tobacco Use [...] on filedocumented in this encounter Care Teams Surgical Dental Assistant Relationship Specialty Start Date End Date Andrey Kevin MD PCP - General Gastroenterology 04/07/16 04/15/16 Raheem Allen MD [address] [place] [address] PCP - General Family Medicine 04/16/16 05/25/18 Anamika Milton ND [address] [place] [address] PCP - Allergy Naturopathic Medicine 05/26/18 Ubaldo Kevin MD [address] [address] PCP - General Internal Medicine 05/26/18 documented as of this encounter
--- OUTSIDE RECORDS SUMMARY | 2025-01-10 17:24 | XMS_ITS | Encounter Summary ---
Author Organization [facility] Address [address] [place] [address] Care Team Providers Care Cupola Melting Supervisor Name Role Phone Anamika Milton ND Unavailable [phone] Ubaldo Kevin MD Primary Care Provider [phone] Encounter Details Date Type Department Care Team (Late st Contact Info) Description 06/28/2023 [facility] [address] [phone] Poncho Bronson MD [address] [place] [address] Social History Tobacco Use Types Packs/Day Years [...] on filedocumented in this encounter Care Teams Cupola Melting Supervisor Relationship Specialty Start Date End Date Anamika Milton ND PCP - Allergy Naturopathic Medicine 05/26/18 Ubaldo Kevin MD [address] [place] [address] PCP - General Internal Medicine 05/26/18 documented as of this encounter
--- OUTSIDE RECORDS SUMMARY | 2025-01-10 17:24 | XMS_ITS | Clinical Summary ---
Author Organization [facility] [place] [address] Phone Care Team Providers Care Ceramic Tile Setter Name Role Phone Ubaldo Kevin MD Primary Care Provider [phone] Allergies No known active allergies Medications diclofenac [...] review, hyperlipidemia per patient report, managed by technology teacher, not taking statin. Low-cholesterol diet and lifestyle modification. Suggest continued outpatient follow up. Pneumonia of both lungs due to infectious organi sm 04/04/2024 Overview (04/04/2024): Per patient, hospitalized at [facility] in August 2023 with bilateral pneumonia and sepsis. Followed with pulmonary at discharge Assessment & Plan (04/10/2024 3:47 PM EST): August 2023 was hospitalized for pneumonia and sepsis at [facility] for 1 week in the ICU. [...] pre-op. DVT (deep venous thrombosis) (CMS/HCC V24, [facility]/ CC V28) Assessment & Plan (04/04/2024 3:40 [...] which level the spinal stenosis is located. Surgical History Surgery Date Site/Laterality Comments ROTATOR CUFF REPAIR 02/28/2015 - 02/28/2016 Right TONSILLECTOMY OTHER SURGICAL HISTORY PILONIDAL CYST / SINUS EXCISION UPPER GASTROINTESTINAL ENDOSCOPY 03/15/2016 N/A UPPER GASTROINTESTINAL ENDOSCOPY 12/22/2015 N/A Medical History Medical History Date Comments Hernia, hiatal DVT (deep venous thrombosis) ([facility]/HCC V24, CMS/HCC V28) left GERD (gastroesophageal reflux disease) History of transfusion Family history of upper GI bleeding Iron deficiency anemia Palpitations 04/01/2024 PONV (postoperative nausea a nd vomiting) 04/01/2024 Morbid obesity (CMS/HCC V24, CMS/HCC V28) 04/01/2024 HTN (hypertension) 04/04/2024 Hyperlipidemia 04/04/2024 Pneumonia of both lungs due to infectious organism 04/04/2024 Per patient, hospitalized at [facility] in August 2023 with bilateral pneumonia [...] 06/27/2023 05/02/2023 Depression Screening 02/29/2024 COVID-19 Vaccine (4 - season) 2024 04/15/2021, 06/23/2020, 06/02/2020 Influenza Vaccine [...] Procedure Name Priority Date/Time Associated Diagnosis Comments COMPREHENSIVE METABOLIC PANEL STAT 09/23/2024 12:33 PM EDT from Last 3 Months or Most Recently Relevant to Health Maintenance Results * (ABNORMAL) Comprehensive metabolic panel (09/23/2024 12:33 PM EDT) Sodium 135 135 - 145 mmol/L LAB CHEMISTRY METHOD 09/23/2024 1:00 PM [facility] Potassium 4.1 3.5 - 5.1 mmol/L LAB [facility]MI[facility] Chloride 100 98 - 107 mmol/L LAB CHEMISTRY METHOD 09/23/2024 1:00 PM [facility] CO2 25 24 - 32 mmol/L LAB CHEMISTRY METHOD 09/23/2024 1:00 PM [facility] Anion Gap 10 5 - 14 LAB CHEMISTRY METHOD 09/23/2024 1:00 PM [facility] Glucose 114(H) 70 - 99 mg/dL LAB CHEMISTRY METHOD 09/23/2024 1:00 PM [facility] BUN 20(H) 7 - 17 mg/dL LAB CHEMISTRY METHOD 09/23/2024 1:00 PM [facility] Creatinine 1.11(H) 0.50 - 1.00 mg/dL LAB CHEMISTRY METHOD 09/23/2024 1:00 PM [facility] eGFR 54(L) >=60 mL/min/1. 73m2 LAB CHEMISTRY METHOD 09/23/2024 1:00 PM [facility] Comment:Calculation based on the Chronic Kidney Disease Epidemiology Collaboration (CKD-EPI) equation refit without adjustment for race. BUN/Creatinine Ratio 18.0 12.0 - 20.0 LAB CHEMISTRY METHOD 09/23/2024 1:00 PM [facility] Calcium 9.0 8.4 - 10.2 mg/dL LAB CHEMISTRY METHOD 09/23/2024 1:00 PM [facility] AST (SGOT) 25 5 - 40 unit/L LAB CHEMISTRY METHOD 09/23/2024 1:00 PM [facility] ALT (SGPT) 16 7 - 52 unit/L LAB CHEMISTRY METHOD 09/23/2024 1:00 PM [facility] Alkaline Phosphatase 90 34 - 104 unit/L LAB CHEMISTRY METHOD 09/23/2024 1:00 PM [facility] Total Protein 7.7 6.4 - 8.5 g/dL LAB CHEMISTRY METHOD 09/23/2024 1:00 PM [facility] Albumin 4.5 3.5 - 5.0 g/dL LAB CHEMISTRY METHOD 09/23/2024 1:00 PM [facility] Total Bilirubin 0.4 0.3 - 1.0 mg/dL LAB CHEMISTRY METHOD 09/23/2024 1:00 PM [facility] Blood Venous blood specimen / Unknown Venipuncture / Unknown 09/23/2024 12:33 PM EDT 09/23/2024 12:36 PM EDT Estrada Petty MD LAB BLOOD ORDERABLES Final Resu lt [facility] [address] [place] [address], from Last 3 Months or Most Recently Relevant to Health Maintenance Insurance [employer] Care Teams Ceramic Tile Setter Relationship Specialty Start Date End Date Ubaldo Kevin MD [address] [facility] [[email or web address]] [address] [place] [address] [facility] - General 12/08/22
== END 2025-01-10 15:58 | disposition home or self-care (01) ==
LOC: HO.HNS 14:02
PROVIDERS: PCP Internal Medicine; Visit Provider Physician Assistant
DX: M25.551 Pain in right hip (principal); M43.16 Spondylolisthesis, lumbar region
CPT/HCPCS: 99024

== ENCOUNTER → 2025-01-10 14:08 | Outpatient (BNV) | payer MEDICARE, SELFPAY | PROVIDERS: Visit Provider Radiology Diagnostic Ultrasound | DX: M43.16 Spondylolisthesis, lumbar region (principal); M16.11 Unilateral primary osteoarthritis, right hip | CPT/HCPCS: 72110; 73502 ==